=== PATIENT | male | born 1955 | race Caucasian/White ===

== ENCOUNTER 2024-01-08 01:04 | Emergency (ER) | payer MEDICARE, OTHER, SELFPAY ==
[2024-01-08 01:12] VITALS: BP 139/71
[2024-01-08 01:48] VITALS: BP 149/70
[2024-01-08 01:55] VITALS: BMI 31.6
[2024-01-08 02:00] VITALS: BP 147/76
--- NOTE | 2024-01-08 02:20 | ED.GENMED ---
History of Present Illness
<DAMIAN Neumann - Last Filed: 01/08/24 02:56>
General
Chief Complaint: Post Operative Problem(s)
Source: patient and spouse
Exam Limitations: none
Time Seen by Provider: 01/08/24 01:49
Travel History
Have you had any contact with someone who has COVID-19?: No
Do you have any symptoms of coronavirus? Fever > 100 degrees, chills, cough, shortness of breath, sore throat, loss of taste or smell, muscle aches, or headache?: No
History of Present Illness
History of Present Illness:
This is a 68 YO M with a PMH of diabetes, myasthenia gravis (02/14), three herniated discs (07/17), right nephrectomy (06/18), five treatments of radiation d/t renal cell carcinoma, s/p b/l inguinal hernia repairs with mesh x 01/06/24 that presents to
the ED with complaints of abdominal pain since Thursday after surgery and nausea/dry heaving x 1 day. Pt states his surgery was at [facility]. He went back today on 01/06 with his , but did not want to wait in the ED any longer. Pt and
state his stomach looks more distended tonight compared to yesterday. Pt also complains of associated constipation since Thursday. He is taking narcotics. He tried Senna without relief. Last BM was Thursday. Current medications include
Metformin, Metoprolol, HCTZ, Losartan, a statin, Tamsulosin, Nexium, Pepcid, and Zyrtec. Incisions look clean and intact without discharge. Pt's states he is tolerating food after eating.
(+) Social drinking, (-) Smoking and drug use
Denies CP, SOB, and diarrhea.
Past History
<DAMIAN Neumann - Last Filed: 01/08/24 02:56>
Past History
ED Past Medical History: GERD, HTN, Hypercholesterolemia, NIDDM (blood sugars on prednisone have been 104 AC to 140 after eating), Other (R hip pain past few years w xrays, injections, using cane intermittently, sees Rheumatologis for this) and
Other (Diverticulitis, C. differential colitis 8 years ago)
ED Past Surgical History: Orthopedic (Lumbar laminectomy 1987)
Social History
Tobacco: Non-smoker
Alcohol: Occasional
Personal:
Living: with family
Employment: Retired
Family History
Family History: Diabetes and Other (father with colon cancer and prostate cancer)
Phy Exam
<DAMIAN Neumann - Last Filed: 01/08/24 02:56>
Physical Exam
Physical Exam:
Diffuse abdominal pain in all four quadrants with normal bowel sounds
Normal S1 and S2
Dry mucous membranes
Breath sounds are clear and equal B/L
General Physical Exam
General Presentation: well appearing
General age: appears stated age
General Skin: dry
General Habitus: normal
General Mental: alert
General Hydration: dry mucous membranes
Cardiovascular Exam
Cardiovascular Exam: regular rate/rhythm
Pulmonary Exam
Pulmonary Exam: lungs clear and no respiratory distress
Gastrointestinal Exam
Gastrointestinal Exam: normal bowel sounds, soft and distended
Abdominal Scars: inguinal and katey-umbilical
Auscultation of Abdomen: normal
Neurological Exam
Neurological Exam: alert, oriented x3 and speech normal
Course
<DAMIAN Neumann - Last Filed: 01/08/24 02:56>
Orders/Labs/Results
Orders:
Orders
01/08/24 01:54
IV Insert/Care/Rem.- Treatment PRN
01/08/24 02:03
Complete Blood Count/With Diff Urgent
Comprehensive Metabolic Panel Urgent
Lipase Urgent
01/08/24 03:05
CT Abd/pelvis W Iv Cont Urgent
Comment:
Reason For Exam: abd pain,recent inguinal hernia repair,constipated
0.9% Sodium Chloride 1000 ml [Nss] 1,000 ml IV BOLUS
Abnormal Lab Results
01/08/24
02:03
RBC 3.75 L 10^6/uL
(4.70-6.10)
Hgb 10.4 L g/dL
(13.0-18.0)
Hct 30.7 L %
(39.0-52.0)
RDW 14.7 H %
(11.5-14.5)
Absolute Neuts (auto) 9.1 H 10^3/uL
(1.4-6.5)
Absolute Lymphs (auto) 0.7 L 10^3/uL
(1.2-3.4)
Absolute Monos (auto) 0.8 H 10^3/uL
(0.1-0.6)
Neutrophils % 84.2 H %
(42.2-75.2)
Lymphocytes % 6.0 L %
(20.5-51.1)
Sodium 128 L mmol/L
(135-145)
Chloride 92 L mmol/L
(98-107)
Glucose 125 H mg/dl
(70-99)
01/08/24 02:03
01/08/24 02:03
Vital Signs
Initial and Last Documented VS:
Initial Vital Signs
Temp Pulse Resp BP Pulse Ox
98.0 F 60 16 139/71 96
01/08/24 01:12 01/08/24 01:12 01/08/24 01:01/08/24 01:12 01/08/24 01:12
Last Documented Vital Signs
Temp Pulse Resp BP Pulse Ox
98.0 F 60 16 153/77 95
01/08/24 01:12 01/08/24 01:12 01/08/24 01:12 01/08/24 03:00 01/08/24 03:43
<Rajiv Callahan, DO - Last Filed: 01/08/24 05:12>
Orders/Labs/Results
Orders:
Orders
01/08/24 01:54
IV Insert/Care/Rem.- Treatment PRN
01/08/24 02:03
Complete Blood Count/With Diff Urgent
Comprehensive Metabolic Panel Urgent
Lipase Urgent
01/08/24 03:05
CT Abd/pelvis W Iv Cont Urgent
Comment:
Reason For Exam: abd pain,recent inguinal hernia repair,constipated
0.9% Sodium Chloride 1000 ml [Nss] 1,000 ml IV BOLUS
Abnormal Lab Results
01/08/24
02:03
RBC 3.75 L 10^6/uL
(4.70-6.10)
Hgb 10.4 L g/dL
(13.0-18.0)
Hct 30.7 L %
(39.0-52.0)
RDW 14.7 H %
(11.5-14.5)
Absolute Neuts (auto) 9.1 H 10^3/uL
(1.4-6.5)
Absolute Lymphs (auto) 0.7 L 10^3/uL
(1.2-3.4)
Absolute Monos (auto) 0.8 H 10^3/uL
(0.1-0.6)
Neutrophils % 84.2 H %
(42.2-75.2)
Lymphocytes % 6.0 L %
(20.5-51.1)
Sodium 128 L mmol/L
(135-145)
Chloride 92 L mmol/L
(98-107)
Glucose 125 H mg/dl
(70-99)
01/08/24 02:03
01/08/24 02:03
Vital Signs
Initial and Last Documented VS:
Initial Vital Signs
Temp Pulse Resp BP Pulse Ox
98.0 F 60 16 139/71 96
01/08/24 01:12 01/08/24 01:12 01/08/24 01:12 01/08/24 01:12 01/08/24 01:12
Last Documented Vital Signs
Temp Pulse Resp BP Pulse Ox
98.0 F 60 16 153/77 95
01/08/24 01:12 01/08/24 01:12 01/08/24 01:12 01/08/24 03:00 01/08/24 03:43
<DAMIAN Neumann - Last Filed: 01/08/24 02:56>
MDM/Problems Addressed
Differential Diagnosis Includes:
SBO, Post-operative, Ileus, LBO, Volvulus,
MDM/Problems Addressed:
Abdominal pain and nausea
Chronic conditions affecting care: DM, HTN and Other (Renal cell carcinoma)
<DAMIAN Neumann - Last Filed: 01/08/24 02:56>
*Critical Care Note
Total Time (30-74mins, 75-104mins- exclusive of procedures): Not Applicable
<Rajiv Callahan DO - Last Filed: 01/08/24 05:12>
Update Note
Update Note:
CT negative for significant pathology. We discussed postsurgical seroma and constipation. Patient feeling better after IV fluids and feels comfortable going home. Discussed laxatives
ED Attending Note
<DAMIAN Neumann - Last Filed: 01/08/24 02:56>
-
Portions of this chart may have been created with voice recognition software.� Occasional wrong word or��sound alike� substitutions may have occurred due to the inherent limitations of voice recognition software.
<Rajiv Callahan DO - Last Filed: 01/08/24 05:12>
ED Attending Note
Patient seen and examined by attending physician: Yes
I performed the substantive portion of visit, reviewed & personally made and approve the management plan that is documented in note by myself or ANOOP.: Yes
ED Attending Note:
I have seen and evaluated the patient with a [id number]-[id number] encounter. I have spoken to the advance practicer provider and involved in the medical history, the physical exam, medical decision making.
Evaluation and management service: agree unless noted differently below.
Results interpretation: agree unless noted differently below.
Focused HPI: 68-year-old male presenting with abdominal discomfort, nausea, dry heaving and constipation. Patient had recent inguinal hernia repair yesterday. Due to his symptoms, he went to [facility] where the surgery was performed. Due
to the emergency department wait time, he left and came here. Patient is urinating and passing gas
Physical exam: Sitting in bed comfortably. Abdomen soft and nontender. Inguinal incisions are clean and intact
Medical Decision Making: We discussed likely postoperative ileus or constipation due to narcotics. Patient is clinically dehydrated. Will give IV fluids obtain CT
Discharge Plan
Departure
Patient Disposition: Home (Routine Discharge)
Date of Disposition: 01/08/24
Time of Disposition: 05:11
Patient with high blood pressure during this ER visit?: Yes
Discharge Problem:
Post-operative pain
Instructions: Postoperative Pain (DC), BLOOD PRESSURE
Prescriptions:
No Action
cetirizine 10 MG tablet
10 mg PO DAILY
hydrochlorothiazide 50 MG tablet
50 mg PO DAILY
metoprolol tartrate 25 MG tablet
25 mg PO DAILY
Patient Comments:
Patient states to nurse, 'I take a half a pill a day.'
Multivitamin
1 tab PO DAILY
vnkktilzhq-eoeqozrurogr-phojxy 1 CAP capsule
1 cap PO DAILY
pioglitazone-metformin [Actoplus MET] 1 TAB tablet
1 tab PO BID
atorvastatin 40 MG tablet
40 mg PO DAILY
Allopurinol
100 mg PO DAILY
Ambien:
10 mg PO HS PRN (Reason: sleep)
Celebrex:
200 mg PO DAILY PRN (Reason: pain)
Magnesium
125 mg PO DAILY
Melatonin
5 mg PO HS
Prevacid:
15 mg PO BID
Vitamin D3:
2,000 unit PO DAILY
Vitamin E :
450 mg PO DAILY
prednisone 20 mg tablet
40 mg PO DAILY Qty: 8 0RF
Referrals:
Boyd Sage MD [Family Provider] -
Activity Restrictions/Additional Instructions:
Please return for any worsening symptoms.
You may return at any time if you have further concerns.
Please follow up with your surgeon at the first available appointment, preferably this week.
Drink plenty of water intake laxatives for the next few days.
Thank you for choosing [facility].
Interventions
Interventions:
*Risk Screen - Suicide Last Done: 01/08/24 01:12
*General Assessment Last Done: 01/08/24 02:28
*Neglect/Abuse Screening Last Done: 01/08/24 01:17
ED- Fall Risk Assessment Last Done: 01/08/24 02:28
*ED COVID-19 Vaccine History Last Done: 01/08/24 01:12
ED-Skin Assessment Last Done: 01/08/24 02:25
Discharge Date and Time
Print Language: ALBANIAN
[2024-01-08 02:35] LABS: % Basophils 0.3 % (0-2); % Eosinophils 1.8 % (0-6); % Immature Granulocytes 0.4 % (0-0.5); % Monocytes 7.3 % (1.7-9.3); % Neutrophils 84.2 % (42.2-75.2); Absolute Eosinophils 0.2 10^3/uL (0-0.7); Absolute Lymphocytes 0.7 10^3/uL (1.2-3.4); Absolute Monocytes 0.8 10^3/uL (0.1-0.6); Absolute Neutrophils 9.1 10^3/uL (1.4-6.5); Hematocrit 30.7 % (39.0-52.0); Hemoglobin 10.4 g/dL (13.0-18.0); Mean Corp Hgb Conc. 33.9 g/dL (33.0-37.0); Mean Corpuscular Hgb 27.7 pg (27.0-31.0); Mean Corpuscular Volume 81.9 fL (80.0-94.0); Mean Platelet Volume 9.1 fL (7.4-10.4); Nucleated Red Blood Cells % 0 % (-); Platelet Count 181 10^3/uL (130-400); Red Blood Cell Count 3.75 10^6/uL (4.70-6.10); Red Cell Dist. Width 14.7 % (11.5-14.5); White Blood Cell Count 10.8 10^3/uL (4.8-10.8)
[2024-01-08 02:58] LABS: ALT (SGPT) 23 U/L (0-50); AST (SGOT) 33 U/L (17-59); Alkaline Phosphatase 81 U/L (38-126); Blood Urea Nitrogen 18 mg/dl (9-20); Calcium 9.3 mg/dl (8.4-10.2); Carbon Dioxide 27 mmol/L (22-30); Chloride 92 mmol/L (98-107); Estimated Creatinine Clearance 69 ml/min; Glucose 125 mg/dl (70-99); Lipase 53 U/L (23-300); Potassium 4.3 mmol/L (3.5-5.1); Sodium 128 mmol/L (135-145); Total Bilirubin 0.7 mg/dl (0.2-1.3); Total Protein 6.6 g/dl (6.3-8.2); eGFR > 60.00
[2024-01-08 03:00] VITALS: BP 153/77
[2024-01-08] MEDS: NSS 1000 IV (03:39)
[2024-01-08 04:00] VITALS: BP 147/76
== END 2024-01-08 05:46 | disposition home or self-care (01) ==
LOC: EMR 01:04
PROVIDERS: EMERGENCY PHYSICIAN Student in an Organized Health Care Education/Training Program; FAMILY PHYSICIAN Family Medicine
DX: G89.18 Other acute postprocedural pain (principal); R10.9 Unspecified abdominal pain; I10 Essential (primary) hypertension; E11.9 Type 2 diabetes mellitus without complications
CPT/HCPCS: 99285; 96360; 74177; 80053; 83690; 85025; Q9967

== ENCOUNTER → 2024-03-21 06:48 | Outpatient (REF) | payer MEDICARE, OTHER, SELFPAY ==
[2024-03-21 09:11] LABS: % Basophils 0.7 % (0-2); % Eosinophils 4.6 % (0-6); % Immature Granulocytes 0.3 % (0-0.5); % Lymphocytes 18.8 % (20.5-51.1); % Monocytes 12.7 % (1.7-9.3); % Neutrophils 62.9 % (42.2-75.2); Absolute Eosinophils 0.3 10^3/uL (0-0.7); Absolute Lymphocytes 1.1 10^3/uL (1.2-3.4); Absolute Monocytes 0.8 10^3/uL (0.1-0.6); Absolute Neutrophils 3.8 10^3/uL (1.4-6.5); Hematocrit 33.2 % (39.0-52.0); Mean Corp Hgb Conc. 33.1 g/dL (33.0-37.0); Mean Corpuscular Hgb 27.3 pg (27.0-31.0); Mean Corpuscular Volume 82.4 fL (80.0-94.0); Mean Platelet Volume 8.6 fL (7.4-10.4); Nucleated Red Blood Cells % 0 % (-); Platelet Count 210 10^3/uL (130-400); Red Blood Cell Count 4.03 10^6/uL (4.70-6.10); Red Cell Dist. Width 14.7 % (11.5-14.5); White Blood Cell Count 6.1 10^3/uL (4.8-10.8)
[2024-03-21 10:08] LABS: ALT (SGPT) 27 U/L (0-50); AST (SGOT) 29 U/L (17-59); Albumin 4.2 g/dl (3.5-5.0); Alkaline Phosphatase 88 U/L (38-126); Blood Urea Nitrogen 18 mg/dl (9-20); Calcium 9.7 mg/dl (8.4-10.2); Carbon Dioxide 29 mmol/L (22-30); Chloride 92 mmol/L (98-107); Glucose 88 mg/dl (70-99); HDL Cholesterol 47 mg/dl; LDL Cholesterol, Calculated 84 mg/dl; Potassium 4.4 mmol/L (3.5-5.1); Sodium 134 mmol/L (135-145); Total Bilirubin 0.5 mg/dl (0.2-1.3); Total Cholesterol 151 mg/dl (50-199); Total Protein 6.8 g/dl (6.3-8.2); Triglyceride 102 mg/dl (10-149); Very Low Density Lipoprotein 20 mg/dl (0-30); eGFR > 60.00
[2024-03-21 10:27] LABS: Glycohemoglobin (HgbA1c) 6.1 % (4.0-5.6)
[2024-03-21 10:38] LABS: Microalbumin, Random Urine <0.6 mg/dl (0.6-1.7)
[2024-03-21 11:46] LABS: PSA, Total - Screen 2.54 ng/ml (0.0-4.0)
== END ==
LOC: REG 06:48
PROVIDERS: ATTENDING PHYSICIAN Family Medicine
DX: Z12.5 Encounter for screening for malignant neoplasm of prostate (principal); C64.1 Malignant neoplasm of right kidney, except renal pelvis; E78.2 Mixed hyperlipidemia; E11.69 Type 2 diabetes mellitus with other specified complication
CPT/HCPCS: 36415; 80053; 80061; 82043; 82570; 83036; 85025; G0103

== ENCOUNTER 2024-05-13 10:09 | Emergency (ER) | payer MEDICARE, OTHER, SELFPAY ==
[2024-05-13 10:32] VITALS: BP 132/85
[2024-05-13 11:08] VITALS: BP 143/89; BMI 26.5
[2024-05-13 11:49] VITALS: BP 137/99
[2024-05-13 12:00] VITALS: BP 146/84
[2024-05-13] MEDS: REGLAN 10 MG IV (12:02)
[2024-05-13] MEDS: NSS 500 IV (12:02)
[2024-05-13 12:17] LABS: % Basophils 0.9 % (0-2); % Eosinophils 8.3 % (0-6); % Immature Granulocytes 0.2 % (0-0.5); % Lymphocytes 28.4 % (20.5-51.1); % Monocytes 9.2 % (1.7-9.3); Absolute Eosinophils 0.4 10^3/uL (0-0.7); Absolute Lymphocytes 1.3 10^3/uL (1.2-3.4); Absolute Monocytes 0.4 10^3/uL (0.1-0.6); Absolute Neutrophils 2.5 10^3/uL (1.4-6.5); Hematocrit 31.9 % (39.0-52.0); Hemoglobin 10.6 g/dL (13.0-18.0); Mean Corp Hgb Conc. 33.2 g/dL (33.0-37.0); Mean Corpuscular Hgb 26.6 pg (27.0-31.0); Mean Corpuscular Volume 80.2 fL (80.0-94.0); Mean Platelet Volume 8.3 fL (7.4-10.4); Nucleated Red Blood Cells % 0 % (-); Platelet Count 143 10^3/uL (130-400); Red Blood Cell Count 3.98 10^6/uL (4.70-6.10); Red Cell Dist. Width 14.9 % (11.5-14.5); White Blood Cell Count 4.7 10^3/uL (4.8-10.8)
[2024-05-13 12:37] LABS: ALT (SGPT) 55 U/L (0-50); AST (SGOT) 51 U/L (17-59); Albumin 3.5 g/dl (3.5-5.0); Alkaline Phosphatase 88 U/L (38-126); Blood Urea Nitrogen 15 mg/dl (9-20); Carbon Dioxide 28 mmol/L (22-30); Chloride 95 mmol/L (98-107); Estimated Creatinine Clearance 60 ml/min; Glucose 109 mg/dl (70-99); Potassium 4.4 mmol/L (3.5-5.1); Sodium 132 mmol/L (135-145); Total Bilirubin 0.2 mg/dl (0.2-1.3); Total Protein 5.9 g/dl (6.3-8.2); eGFR > 60.00
[2024-05-13 12:55] VITALS: BP 146/84
[2024-05-13 13:54] LABS: Urine Albumin Negative (Neg - Trace); Urine Bilirubin Negative (Negative); Urine Character Clear (Clear); Urine Color Yellow; Urine Glucose Negative (Negative); Urine Ketone Negative (Negative); Urine Leukocyte Negative (Negative); Urine Nitrite Negative (Negative); Urine Occult Blood Negative (Negative); Urine Urobilinogen Negative (Neg - 1+); Urine pH 6.5 (5.0-9.0)
--- NOTE | 2024-05-13 14:17 | ED.GENMED ---
History of Present Illness
General
Chief Complaint: Blood Pressure Problem
Source: patient and spouse
Exam Limitations: none
Time Seen by Provider: 05/13/24 11:01
Nursing documentation reviewed up to this point in time: agreed with
History of Present Illness
History of Present Illness:
68-year-old male past medical history of hypertension, diabetes myasthenia gravis, kidney cancer status post right kidney removal presenting to the emergency department today with concerns of elevated blood pressure and intermittent headache over
the past month. Had a recent MRI a few weeks referencing the patient's ongoing headaches ago that did not show any emergent findings. Denies numbness weakness chest pain shortness of breath.
Past History
Past History
ED Past Medical History: GERD, HTN, Hypercholesterolemia, NIDDM (blood sugars on prednisone have been 104 AC to 140 after eating), Other (R hip pain past few years w xrays, injections, using cane intermittently, sees Rheumatologis for this) and
Other (Diverticulitis, C. differential colitis 8 years ago)
ED Past Surgical History: Orthopedic (Lumbar laminectomy 1987)
Social History
Tobacco: Non-smoker
Alcohol: Occasional
Personal:
Living: with family
Employment: Retired
Family History
Family History: Diabetes and Other (father with colon cancer and prostate cancer)
Review of Systems
Review of Systems
Allergies reviewed?: Yes
All Other Systems: ROS reviewed and negative except as documented in HPI and ROS
Phy Exam
Physical Exam
Physical Exam:
GENERAL: Alert , in no apparent distress
EYE: pupils equal and reactive
NECK: Supple, no significant adenopathy.
ENT: o/p clr, mmm.
CARDIAC: Regular rate and rhythm .
LUNGS: Clear breath sounds bilaterally, no acute respiratory distress, no wheezes/rales/rhonchi
ABDOMEN: Soft, without focal tenderness, no r/g, no cvat
NEUROLOGICAL: Alert and oriented, no focal neuro deficits
SKIN: Warm and dry, skin intact.
MUSCULOSKELETAL: No edema, well perfused.
PSYCH: Normal and appropriate interaction.
Course
Orders/Labs/Results
Orders:
Orders
05/13/24 11:51
0.9% Sodium Chloride 500 ml [Nss] 500 ml IV BOLUS
Metoclopramide [Reglan] 10 mg IV NOW STA
05/13/24 12:02
CBC/With Diff [Complete Blood Count/With Diff] Urgent
CMP [Comprehensive Metabolic Panel] Urgent
05/13/24 13:48
Urinalysis Reflex To Culture Urgent
Date Specimen was Collected: 05/13/24
Time Specimen was Collected: 11:59
Abnormal Lab Results
05/13/24
12:02
WBC 4.7 L 10^3/uL
(4.8-10.8)
RBC 3.98 L 10^6/uL
(4.70-6.10)
Hgb 10.6 L g/dL
(13.0-18.0)
Hct 31.9 L %
(39.0-52.0)
MCH 26.6 L pg
(27.0-31.0)
RDW 14.9 H %
(11.5-14.5)
Eosinophils % 8.3 H %
(0-6)
Sodium 132 L mmol/L
(135-145)
Chloride 95 L mmol/L
(98-107)
Glucose 109 H mg/dl
(70-99)
ALT 55 H U/L
(0-50)
Total Protein 5.9 L g/dl
(6.3-8.2)
05/13/24 12:02
05/13/24 12:02
Vital Signs
Initial and Last Documented VS:
Initial Vital Signs
Temp Pulse Resp BP Pulse Ox
98.0 F 63 18 132/85 96
05/13/24 10:32 05/13/24 10:32 05/13/24 10:32 05/13/24 10:32 05/13/24 10:32
Last Documented Vital Signs
Temp Pulse Resp BP Pulse Ox
98.5 F 56 20 146/84 98
05/13/24 11:08 05/13/24 12:55 05/13/24 12:55 05/13/24 12:55 05/13/24 12:55
MDM/Problems Addressed
MDM/Problems Addressed:
The patient is a 68-year-old male presenting to the emergency department today with concerns of intermittently elevated blood pressure over the past few weeks also has had intermittent headache. Blood pressure in the 160s over 110s earlier today.
Upon arrival vital signs are normal blood pressures in the 130s over 80s labs obtained without acute abnormalities. Patient in no distress throughout the ER stay sodium slightly low, he is following up for this and does get closely monitor for
hyponatremia. Otherwise stable for discharge at this time return precautions given.
*Critical Care Note
Total Time (30-74mins, 75-104mins- exclusive of procedures): Not Applicable
ED Attending Note
-
Portions of this chart may have been created with voice recognition software.� Occasional wrong word or��sound alike� substitutions may have occurred due to the inherent limitations of voice recognition software.
Discharge Plan
Departure
Patient Disposition: Home (Routine Discharge)
Date of Disposition: 05/13/24
Time of Disposition: 14:19
Patient with high blood pressure during this ER visit?: Yes
Condition: Good
Covid-19: Not Applicable
Discharge Problem:
Headache, Hyponatremia
Instructions: High Blood Pressure (DC)
Prescriptions:
No Action
cetirizine 10 MG tablet
10 mg PO DAILY
hydrochlorothiazide 50 MG tablet
50 mg PO DAILY
metoprolol tartrate 25 MG tablet
25 mg PO DAILY
Patient Comments:
Patient states to nurse, 'I take a half a pill a day.'
Multivitamin
1 tab PO DAILY
hfhohqhfqp-yzipsmtuccpu-uexxky 1 CAP capsule
1 cap PO DAILY
pioglitazone-metformin [Actoplus MET] 1 TAB tablet
1 tab PO BID
atorvastatin 40 MG tablet
40 mg PO DAILY
Allopurinol
100 mg PO DAILY
Ambien:
10 mg PO HS PRN (Reason: sleep)
Celebrex:
200 mg PO DAILY PRN (Reason: pain)
Magnesium
125 mg PO DAILY
Melatonin
5 mg PO HS
Prevacid:
15 mg PO BID
Vitamin D3:
2,000 unit PO DAILY
Vitamin E :
450 mg PO DAILY
prednisone 20 mg tablet
40 mg PO DAILY Qty: 8 0RF
Referrals:
Boyd Sage MD [Family Provider] -
Activity Restrictions/Additional Instructions:
You came to the emergency department today with concerns of ongoing headache intermittent high blood pressure. Here you had a reassuring assessment. Your sodium was slightly low but not critically low. Please follow closely as an outpatient.
Return to the emergency department for any worsening, new or concerning symptoms.
Interventions
Interventions:
*Risk Screen - Suicide Last Done: 05/13/24 11:08
*General Assessment Last Done: 05/13/24 11:08
*Neglect/Abuse Screening Last Done: 05/13/24 11:08
ED- Fall Risk Assessment Last Done: 05/13/24 11:08
*ED COVID-19 Vaccine History Last Done: 05/13/24 10:35
ED- Cardiac Assessment Last Done: 05/13/24 11:08
ED- Neurological Assessment Last Done: 05/13/24 11:08
ED- Pulmonary Assessment Last Done: 05/13/24 11:08
Discharge Date and Time
Print Language: BRAZILIAN
[2024-05-13 14:27] VITALS: BP 141/81
== END 2024-05-13 14:28 | disposition home or self-care (01) ==
LOC: EMR 10:09
PROVIDERS: Physician Assistant; EMERGENCY PHYSICIAN Emergency Medicine; FAMILY PHYSICIAN Family Medicine
DX: R51.9 Headache, unspecified (principal); E87.1 Hypo-osmolality and hyponatremia; I10 Essential (primary) hypertension; E11.9 Type 2 diabetes mellitus without complications; E78.00 Pure hypercholesterolemia, unspecified; Z85.528 Personal history of other malignant neoplasm of kidney; Z90.5 Acquired absence of kidney
CPT/HCPCS: 99284; 96374; 80053; 81003; 85025

== ENCOUNTER 2024-05-15 09:30 | Emergency (ER) | payer OTHER, MEDICARE, SELFPAY ==
[2024-05-15] VITALS (7 sets, daily range): BP systolic 136–166; BP diastolic 96–106; BMI 28.8
--- NOTE | 2024-05-15 10:35 | ED.GENMED ---
History of Present Illness
General
Chief Complaint: Blood Pressure Problem
Source: patient
Time Seen by Provider: 05/15/24 09:58
History of Present Illness
History of Present Illness:
68-year-old male presents to the emergency room complaining of elevated blood pressure. Patient has been experiencing elevations in his blood pressure over the past couple weeks. Patient was diagnosed with renal cell carcinoma which is metastatic.
He was started on a medication called cabozantinib. This medication has a known side effect of elevated blood pressure. Blood pressure medications have been adjusted. He is currently taking Coreg, hydrochlorothiazide, and losartan. Patient had
a headache this morning and take his blood pressure when he realized it was 160s over 110s. He was concerned that he might have a stroke prompting his call to his doctors who referred him to the emergency room. Currently the patient is
symptom-free. Patient has been experiencing shortness of breath with exertion which is been present for some time. He has not noted any peripheral edema. He denies chest pain.
Past History
Past History
ED Past Medical History: GERD, HTN, Hypercholesterolemia, NIDDM (blood sugars on prednisone have been 104 AC to 140 after eating), Other (R hip pain past few years w xrays, injections, using cane intermittently, sees Rheumatologis for this) and
Other (Diverticulitis, C. differential colitis 8 years ago)
ED Past Surgical History: Orthopedic (Lumbar laminectomy 1987)
Social History
Tobacco: Non-smoker
Alcohol: Occasional
Personal:
Living: with family
Employment: Retired
Family History
Family History: Diabetes and Other (father with colon cancer and prostate cancer)
Phy Exam
Physical Exam
Physical Exam:
General: Awake, Alert, Oriented X3. No acute distress.
Vitals: unremarkable
Head: Atraumatic
Eyes: Pupils equal, EOMI
Throat: Airway intact, no exudates
Neck: Trachea midline
Lungs: Clear and equal b/l
Heart: Regular rate, no murmurs
Abd: Soft, Nontender, No pulsatile mass
Neuro: Nonfocal
Skin: Warm, dry, no rash
Extremities: pulses equal b/l, no edema
Course
Orders/Labs/Results
Orders:
Orders
05/15/24 10:29
CR Chest - 2 Views Urgent
Comment:
Reason For Exam: sob
05/15/24 10:36
Basic Metabolic Panel Urgent
NT-proBNP Urgent
05/15/24 12:33
Amlodipine [Norvasc] 5 mg PO NOW STA
05/15/24 12:34
Amlodipine [Norvasc] 5 mg .ROUTE .STK-MED ONE
Abnormal Lab Results
05/15/24
10:36
Sodium 131 L mmol/L
(135-145)
Chloride 94 L mmol/L
(98-107)
Glucose 113 H mg/dl
(70-99)
05/15/24 10:36
Vital Signs
Initial and Last Documented VS:
Initial Vital Signs
Temp Pulse Resp BP Pulse Ox
97.6 F 67 18 151/97 97
05/15/24 09:36 05/15/24 09:36 05/15/24 09:36 05/15/24 09:36 05/15/24 09:36
Last Documented Vital Signs
Temp Pulse Resp BP Pulse Ox
97.6 F 65 24 166/105 97
05/15/24 09:36 05/15/24 12:45 05/15/24 12:45 05/15/24 12:45 05/15/24 12:45
MDM/Problems Addressed
Differential Diagnosis Includes:
Uncontrolled hypertension, worsening renal function, heart failure
MDM/Problems Addressed:
Very pleasant 68-year-old gentleman presents for continued uncontrolled high blood pressure. Patient was seen in the emergency room for similar symptoms. Somewhat frustrated that nothing was done at that time. Patient had a headache this morning
but has no symptoms now. Specifically he has no chest pain, headache, focal neurologic deficits. Labs show mild hyponatremia 131. Not unexpected given his use of hydrochlorothiazide. Otherwise his labs are unremarkable including a BN P. Chest
x-ray shows no acute abnormalities. Discussed the patient's presentation with his oncology team at the [facility]. His chemo medication is associated with hypertension. They agree with starting amlodipine. Also sent a message to the
patient's drop press hand, Dr. Norton. He will follow-up with patient as an outpatient.
*Radiology
Radiology exam reviewed: radiology read reviewed
*Pulse Oximetry
Patient hypoxic: no
*Critical Care Note
Total Time (30-74mins, 75-104mins- exclusive of procedures): Not Applicable
Patient Management
Social determinants of health affecting care: Strong social support
ED Attending Note
-
Portions of this chart may have been created with voice recognition software.� Occasional wrong word or��sound alike� substitutions may have occurred due to the inherent limitations of voice recognition software.
Discharge Plan
Departure
Patient Disposition: Home (Routine Discharge)
Date of Disposition: 05/15/24
Time of Disposition: 12:26
Patient with high blood pressure during this ER visit?: No
Condition: Good
Discharge Problem:
Uncontrolled hypertension
Prescriptions:
New
amlodipine [Norvasc] 5 mg tablet
5 mg PO DAILY Qty: 14 0RF
No Action
cetirizine 10 MG tablet
10 mg PO DAILY
hydrochlorothiazide 50 MG tablet
50 mg PO DAILY
metoprolol tartrate 25 MG tablet
25 mg PO DAILY
Patient Comments:
Patient states to nurse, 'I take a half a pill a day.'
Multivitamin
1 tab PO DAILY
zqsdatymee-upomvsqihsgy-epbzuw 1 CAP capsule
1 cap PO DAILY
pioglitazone-metformin [Actoplus MET] 1 TAB tablet
1 tab PO BID
atorvastatin 40 MG tablet
40 mg PO DAILY
Allopurinol
100 mg PO DAILY
Ambien:
10 mg PO HS PRN (Reason: sleep)
Celebrex:
200 mg PO DAILY PRN (Reason: pain)
Magnesium
125 mg PO DAILY
Melatonin
5 mg PO HS
Prevacid:
15 mg PO BID
Vitamin D3:
2,000 unit PO DAILY
Vitamin E :
450 mg PO DAILY
prednisone 20 mg tablet
40 mg PO DAILY Qty: 8 0RF
Referrals:
Samy Norton DO [Active] -
Boyd Sage MD [Family Provider] -
Interventions
Interventions:
*Risk Screen - Suicide Last Done: 05/15/24 10:25
*General Assessment Last Done: 05/15/24 10:25
*Neglect/Abuse Screening Last Done: 05/15/24 10:25
ED- Fall Risk Assessment Last Done: 05/15/24 10:26
*ED COVID-19 Vaccine History Last Done: 05/15/24 10:25
*Nursing Disposition Last Done: 05/15/24 12:45
ED- Cardiac Assessment Last Done: 05/15/24 11:19
ED- Neurological Assessment Last Done: 05/15/24 11:19
ED- Pulmonary Assessment Last Done: 05/15/24 11:19
Discharge Date and Time
Discharge Date/Time: 05/15/24 12:50
Print Language: ITALIAN
[2024-05-15 10:58] LABS: Blood Urea Nitrogen 15 mg/dl (9-20); Calcium 9.4 mg/dl (8.4-10.2); Carbon Dioxide 27 mmol/L (22-30); Chloride 94 mmol/L (98-107); Estimated Creatinine Clearance 65 ml/min; Glucose 113 mg/dl (70-99); Sodium 131 mmol/L (135-145); eGFR > 60.00
[2024-05-15 11:06] LABS: NT-proBNP 438 pg/ml
--- NOTE | 2024-05-15 12:27 | EDRN ---
Dr. Bustamante in to see pt at this time.
.
[2024-05-15] MEDS: NORVASC 5 MG PO (12:39)
== END 2024-05-15 12:50 | disposition home or self-care (01) ==
LOC: EMR 09:30
PROVIDERS: EMERGENCY PHYSICIAN Emergency Medicine; FAMILY PHYSICIAN Family Medicine
DX: I10 Essential (primary) hypertension (principal); C64.9 Malignant neoplasm of unspecified kidney, except renal pelvis; C79.9 Secondary malignant neoplasm of unspecified site; E11.9 Type 2 diabetes mellitus without complications; E78.00 Pure hypercholesterolemia, unspecified; E87.1 Hypo-osmolality and hyponatremia; K21.9 Gastro-esophageal reflux disease without esophagitis; Z79.899 Other long term (current) drug therapy
CPT/HCPCS: 99284; 71046; 80048; 83880

== ENCOUNTER → 2024-06-22 10:44 | Outpatient (REF) | payer MEDICARE, OTHER, SELFPAY ==
[2024-06-22 13:15] LABS: Urine Sodium 111 mmol/L (30-90)
[2024-06-22 13:30] LABS: Osmolality Serum 281 mOsm/kg (275-300)
[2024-06-22 13:40] LABS: Blood Urea Nitrogen 16 mg/dl (9-20); Calcium 9.2 mg/dl (8.4-10.2); Carbon Dioxide 29 mmol/L (22-30); Chloride 94 mmol/L (98-107); Glucose 89 mg/dl (70-99); Potassium 4.9 mmol/L (3.5-5.1); Sodium 131 mmol/L (135-145); eGFR > 60.00
[2024-06-22 16:58] LABS: Osmolality Urine 515 mOsm/kg (300-900)
== END ==
LOC: REG 10:44
PROVIDERS: ATTENDING PHYSICIAN Hospitalist
DX: E87.1 Hypo-osmolality and hyponatremia (principal)
CPT/HCPCS: 36415; 80048; 83930; 83935; 84300

== ENCOUNTER → 2024-06-29 09:17 | Outpatient (REF) | payer MEDICARE, OTHER, SELFPAY ==
[2024-06-29 10:27] LABS: Blood Urea Nitrogen 19 mg/dl (9-20); Calcium 9.1 mg/dl (8.4-10.2); Carbon Dioxide 28 mmol/L (22-30); Chloride 93 mmol/L (98-107); Glucose 114 mg/dl (70-99); Sodium 130 mmol/L (135-145); eGFR > 60.00
== END ==
LOC: REG 09:17
PROVIDERS: ATTENDING PHYSICIAN Hospitalist
DX: E87.1 Hypo-osmolality and hyponatremia (principal)
CPT/HCPCS: 36415; 80048

== ENCOUNTER 2024-10-30 22:01 | Inpatient (IN) | payer MEDICARE, OTHER, SELFPAY ==
[2024-10-30] VITALS (18 sets, daily range): BP systolic 140–191; BP diastolic 86–104; BMI 29.6; BMI 29.1
[2024-10-30 14:01] LABS: % Basophils 0.2 % (0-2); % Eosinophils 0.2 % (0-6); % Immature Granulocytes 0.3 % (0-0.5); % Monocytes 4.4 % (1.7-9.3); % Neutrophils 90.9 % (42.2-75.2); Absolute Lymphocytes 0.4 10^3/uL (1.2-3.4); Absolute Monocytes 0.4 10^3/uL (0.1-0.6); Absolute Neutrophils 8.7 10^3/uL (1.4-6.5); Hematocrit 34.8 % (39.0-52.0); Hemoglobin 11.6 g/dL (13.0-18.0); Mean Corp Hgb Conc. 33.3 g/dL (33.0-37.0); Mean Corpuscular Hgb 30.9 pg (27.0-31.0); Mean Corpuscular Volume 92.6 fL (80.0-94.0); Nucleated Red Blood Cells % 0 % (-); Red Blood Cell Count 3.76 10^6/uL (4.70-6.10); Red Cell Dist. Width 15.4 % (11.5-14.5); White Blood Cell Count 9.6 10^3/uL (4.8-10.8)
[2024-10-30 14:28] LABS: ALT (SGPT) 287 U/L (0-50); AST (SGOT) 142 U/L (17-59); Albumin 3.4 g/dl (3.5-5.0); Alkaline Phosphatase 159 U/L (38-126); Blood Urea Nitrogen 16 mg/dl (9-20); Calcium 8.5 mg/dl (8.4-10.2); Carbon Dioxide 26 mmol/L (22-30); Chloride 96 mmol/L (98-107); Estimated Creatinine Clearance 59 ml/min; Glucose 119 mg/dl (70-99); Lipase 30 U/L (23-300); Potassium 4.2 mmol/L (3.5-5.1); Sodium 130 mmol/L (135-145); Total Bilirubin 1.7 mg/dl (0.2-1.3); Total Protein 6.1 g/dl (6.3-8.2); eGFR > 60.00
[2024-10-30 14:59] LABS: Mean Platelet Volume 8.3 fL (7.4-10.4); Platelet Count 96 10^3/uL (130-400)
--- NOTE | 2024-10-30 15:03 | ED.GENMED ---
History of Present Illness
<Kelli Abdalla PA-C - Last Filed: 10/31/24 00:34>
General
Chief Complaint: Abdominal Symptoms
Source: patient and spouse ( at bedside)
Exam Limitations: none
Time Seen by Provider: 10/30/24 14:38
Nursing documentation reviewed up to this point in time: agreed with
History of Present Illness
History of Present Illness:
Patient is a 69-year-old male with history hypertension, hyperlipidemia, myasthenia gravis, renal cancer status post left nephrectomy presenting to the emergency department with intractable nausea/vomiting and diarrhea. Patient states he started
with 'shaking chills 'on Thursday evening which was shortly followed by persistent nausea, vomiting, and nonbloody diarrhea. Patient has had very little to eat/drink over the past few days secondary to nausea. He denies any focal abdominal
tenderness. Patient denies any dysuria or hematuria although notes that his urine seemed very dark. Patient is are concerned that he may be dehydrated. No sick contacts.
Patient is taking Cabometyx for renal cell carcinoma and has been dealing with frequent diarrhea since starting this medication although states that over the past few days it has seemed 'worse '.
He is also currently being treated w/ pyridostigmine for myasthenia gravis which was apparently in remission until recently with some difficulty swallowing was started on medication.
Past History
<Kelli Abdalla PA-C - Last Filed: 10/31/24 00:34>
Past History
ED Past Medical History: GERD, HTN, Hypercholesterolemia, NIDDM (blood sugars on prednisone have been 104 AC to 140 after eating), Other (R hip pain past few years w xrays, injections, using cane intermittently, sees Rheumatologis for this) and
Other (Diverticulitis, C. differential colitis 8 years ago)
ED Past Surgical History: Orthopedic (Lumbar laminectomy 1987)
Social History
Tobacco: Non-smoker
Alcohol: Occasional
Personal:
Living: with family
Employment: Retired
Family History
Family History: Diabetes and Other (father with colon cancer and prostate cancer)
Review of Systems
<Kelli Abdalla PA-C - Last Filed: 10/31/24 00:34>
Review of Systems
Allergies reviewed?: Yes
All Other Systems: ROS reviewed and negative except as documented in HPI and ROS
Phy Exam
<Kelli Abdalla PA-C - Last Filed: 10/31/24 00:34>
Physical Exam
Physical Exam:
Vitals: Hypertensive on arrival, mildly improved on my assessment. Afebrile
General: Patient is generally weak appearing. Nontoxic
Skin: Warm and dry, no rashes or lesions
Head: Normocephalic, atraumatic
Eyes: Sclera nonicteric. EOMs intact. No nystagmus.
Throat: Protecting airway
Neck: Normal ROM, no cervical spine tenderness, no meningismus
Cardiac: Regular rate and rhythm, no murmurs.
Pulm: Mildly tachypneic. Normal respiratory effort, no wheezes, rales, rhonchi heard on exam. Not hypoxic.
Abdomen: Nondistended. Abdomen soft with very mild diffuse tenderness. No rebound tenderness or guarding. Negative Montejo sign. No focal tenderness McBurney's point.
Extremities: No evidence of cyanosis or edema. Palpable DP pulses bilaterally
Neuro: AAOx3. Grossly intact.
Psychiatric: Normal affect.
Course
<Kelli Abdalla PA-C - Last Filed: 10/31/24 00:34>
Orders/Labs/Results
Orders:
Orders
10/30/24 Breakfast
Clear Liquid
At Your Request: Limited Participation
10/30/24 13:45
CMP [Comprehensive Metabolic Panel] Urgent
Complete Blood Count/With Diff Urgent
Lipase Urgent
10/30/24 14:59
0.9% Sodium Chloride 1000 ml [Nss] 1,000 ml IV BOLUS
Acetaminophen [Tylenol] 650 mg PO NOW STA
Ondansetron Injectable [Zofran] 4 mg IV NOW STA
10/30/24 15:00
US Abdomen Complete/Upper Urgent
Comment:
Reason For Exam: N/V, LFT elevation
10/30/24 15:21
Urinalysis Reflex To Culture Urgent
Date Specimen was Collected: 10/30/24
Time Specimen was Collected: 15:20
Urine Microscopic Reflex Cult Urgent
10/30/24 16:15
Norovirus by PCR Urgent
FREDDIE Source: Feces/Stool
Specimen Description:
Date Specimen was Collected: 10/30/24
Time Specimen was Collected: 16:14
STOOL [C difficile Antigen & Toxins] Urgent
FREDDIE Source: Feces/Stool
Specimen Description:
Date Specimen was Collected: 10/30/24
Time Specimen was Collected: 16:14
Stool Culture Urgent
FREDDIE Source: Feces/Stool
Specimen Description:
Date Specimen was Collected: 10/30/24
Time Specimen was Collected: 16:14
10/30/24 17:33
CT Abd/pelvis W Iv Cont Urgent
Comment:
Reason For Exam: Fevers, abdominal pain, N/V
10/30/24 18:00
COVID-19 Antigen Urgent
Source: Nasal Swab
Lactic Acid Q4H
Comment: CANCEL 2nd LACTIC ACID IF 1st LACTIC ACID IS LESS THAN 2
Blood Culture Q30M
FREDDIE Source: Blood/Venous
Specimen Description:
Blood Culture Q30M
FREDDIE Source: Blood/Venous
Specimen Description:
Influenza A+B Rapid Molecular Urgent
FREDDIE Source: Nasal Swab
Specimen Description:
10/30/24 18:17
Electrocardiogram (*1) Urgent
Reason for Study: Shortness of Breath
EKG- Treatment ONCE
Piperacillin/Tazo 3.375 Gram [Zosyn] 3.375 gram in 50 ml IV NOW
10/30/24 18:29
Pft Nif [RESP] Urgent
10/30/24 18:44
CR Chest Portable - 1 View Urgent
Comment:
Reason For Exam: SOB
Reason Study Needs to be Portable: Patient Unstable
10/30/24 18:55
Pyridostigmine [Mestinon] 30 mg PO NOW STA
10/30/24 19:15
Oxygen Therapy [O2 Therapy] [RESP] Urgent
Nasal Cannula Liter Flow: 2 LPM
Titrate/Wean O2 to maintain O2 sat greater than (%): 93
Wean Oxygen to Pre Admission Baseline Therapy-if applicable: Yes
Contact provider if nasal cannula O2 requirement > 6 liters: Yes
10/30/24 20:47
Admit/Transfer Patient As Directed
Co-Sign Provider:
Level of Care: Inpatient admission
Assign to:: ICU
Physician / Group: Jarek
Diagnosis: Gastroenteritis / Diverticulitis, Myasthenia Gravis
Reason for Hospitalization: Gastroenteritis / Diverticulitis, Myasthenia Gravis
Expected length of stay greater than two midnights?: Yes
ELOS- Estimated Length of Stay in days: 4
I certify the patient meets the requirements for IP care: Yes
Prednisone [Deltasone] 10 mg PO NOW STA
PRN Pain Medication Management As Directed
May give lesser potent ordered pain med per pt: Yes
preference::
Protocol:: Medication orders for pain may be administered in a
manner that supports deferring to patient preference
when the pt is:
- Requesting an ordered lesser potent pain medication.
Least to most potent pain medications are defined
as: acetaminophen < NSAID < tramadol < opioids
(morphine, oxycodone, hydromorphone).
- Requesting a lesser dose of the same medication IF
ORDERED.
- Requesting a less intrusive route of administration
if both routes are prescribed by the provider (PO <
IV).
10/30/24 20:50
Code Status As Directed
Resuscitation Status: Full Code
10/30/24 22:03
0.9% Sodium Chloride 1000 ml [Nss] 1,000 ml IV 125 mls/hr
Acetaminophen [Tylenol] 650 mg PO Q4HPRN PRN
Dextrose 50%-Water [Dextrose 50% Syringe] 12.5 grams IV [id number] PRN
Enoxaparin Sodium [Lovenox] 80 mg SC NOW STA
Glucagon [GlucaGen] 1 mg IM PRN PRN
Ondansetron Injectable [Zofran] 4 mg IV Q6HPRN PRN
Pft Nif [RESP] Q3H
10/30/24 22:03
Echo 2D MMode Doppler [Echo 2D MMode Color/Doppler] Routine
Reason for Study: SOB
NEUROLOGY CONSULT Routine
Consulting Provider: Mona Larry
Was physician already notified: Yes
Reason for consult: Myasthenia
Activity As Directed
Activity Level: Ambulate
With Assistance
Bedside Glucose Monitoring As Directed
Frequency: AC&HS
Additional Instructions:: Change to q6h if pt on TPN, tube feeding or not eating
Bladder Scan As Directed
Follow Bladder Retention/Intermittent Cath Algorithm?: Yes
PRN if no void in __ hours: 6
Frequency: Per Retention Algorithm
If Bladder Scan Result >: 400
then:: Straight cath
EKG with chest pain [ECG as needed] As Directed
ECG as needed for:: Chest Pain
I/O [Intake/ Output] As Directed
Frequency: Per unit guidelines
Neurological Checks As Directed
Frequency: q4h
Straight Cath As Directed
Frequency: Per Retention Algorithm
Additional Instructions: straight cath as needed per acute urinary retention algorithm for 24 hrs
Additional Instructions: for bladder scan greater than 400 mL
Vital Signs As Directed
Frequency: Per unit guidelines
Weight As Directed
Frequency: Daily
Cpap [RESP] Routine
Patient to use own unit?: No
Set Pressure (cm H2O): 10
Oxygen Liter Flow: 2
Instructions: HS and PRN.
Titrate for comfort (pt does not know home settings).
Oxygen Therapy [O2 Therapy] [RESP] Routine
Titrate/Wean O2 to maintain O2 sat greater than (%): 94
Ot Eval And Treat Routine
PT Consult [Pt Eval And Treat] Routine
Activity Level: Ambulate
With Assistance
Speech Therapy Eval & Treat Routine
DX Deep Vein Thrombosis Video Routine
10/30/24 22:57
BNP [NT-proBNP] Urgent
TSH Reflex To Free T4 Routine
Troponin I Urgent
10/30/24 23:00
Pyridostigmine [Mestinon] 60 mg PO TID
10/31/24 00:00
Ampicillin/Sulbactam 3 G [Unasyn] 3 gm 0.9% Sodium Chloride 100 ml [Nss] 100 ml IV Q6
10/31/24 01:03
Pft Nif [RESP] Q3H
10/31/24 06:00
Basic Metabolic Panel IN AM
Complete Blood Count/No Diff IN AM
Glycohemoglobin (HgbA1c) IN AM
LFT [Klpsk-Lizq-Lhervzm] IN AM
Magnesium IN AM
Phosphorus IN AM
10/31/24 07:30
Insulin Aspart Corrective Low [Novolog Flexpen-Low Resistance] See Protocol SC AC
10/31/24 08:00
Allopurinol [Zyloprim] 100 mg PO DAILY
Amlodipine [Norvasc] 5 mg PO DAILY
Losartan [Cozaar] 100 mg PO DAILY
Pantoprazole [Protonix IV] 40 mg IV DAILY
Prednisone [Deltasone] 5 mg PO DAILY
Abnormal Lab Results
10/30/24 10/30/24
13:45 15:21
RBC 3.76 L 10^6/uL
(4.70-6.10)
Hgb 11.6 L g/dL
(13.0-18.0)
Hct 34.8 L %
(39.0-52.0)
RDW 15.4 H %
(11.5-14.5)
Plt Count 96 L 10^3/uL
(130-400)
Absolute Neuts (auto) 8.7 H 10^3/uL
(1.4-6.5)
Absolute Lymphs (auto) 0.4 L 10^3/uL
(1.2-3.4)
Neutrophils % 90.9 H %
(42.2-75.2)
Lymphocytes % 4.0 L %
(20.5-51.1)
Sodium 130 L mmol/L
(135-145)
Chloride 96 L mmol/L
(98-107)
Glucose 119 H mg/dl
(70-99)
Total Bilirubin 1.7 H mg/dl
(0.2-1.3)
AST 142 H U/L
(17-59)
ALT 287 H U/L
(0-50)
Alkaline Phosphatase 159 H U/L
(38-126)
Total Protein 6.1 L g/dl
(6.3-8.2)
Albumin 3.4 L g/dl
(3.5-5.0)
Urine Ketones 3+ A
(Negative)
Ur Occult Blood Reflex 2+ A
(Negative)
Urine Bilirubin 1+ A
(Negative)
Urine Urobilinogen 3+ A
(Neg - 1+)
Urine RBC 3-6 A /HPF
(0-2)
Urine Albumin (Reflex) 3+ A
(Neg - Trace)
10/30/24 13:45
10/30/24 13:45
Vital Signs
Initial and Last Documented VS:
Initial Vital Signs
Temp Pulse Resp BP Pulse Ox
97.7 F 79 18 157/104 94
10/30/24 12:48 10/30/24 12:48 10/30/24 12:48 10/30/24 12:48 10/30/24 12:48
Last Documented Vital Signs
Temp Pulse Resp BP Pulse Ox
99.2 F 82 25 143/95 98
10/30/24 22:14 10/31/24 00:15 10/31/24 00:15 10/31/24 00:15 10/31/24 00:15
<Jose Bowers, DO - Last Filed: 10/30/24 18:32>
Orders/Labs/Results
Orders:
Orders
10/30/24 Breakfast
Clear Liquid
At Your Request: Limited Participation
10/30/24 13:45
CMP [Comprehensive Metabolic Panel] Urgent
Complete Blood Count/With Diff Urgent
Lipase Urgent
10/30/24 14:59
0.9% Sodium Chloride 1000 ml [Nss] 1,000 ml IV BOLUS
Acetaminophen [Tylenol] 650 mg PO NOW STA
Ondansetron Injectable [Zofran] 4 mg IV NOW STA
10/30/24 15:00
US Abdomen Complete/Upper Urgent
Comment:
Reason For Exam: N/V, LFT elevation
10/30/24 15:21
Urinalysis Reflex To Culture Urgent
Date Specimen was Collected: 10/30/24
Time Specimen was Collected: 15:20
Urine Microscopic Reflex Cult Urgent
10/30/24 16:15
Norovirus by PCR Urgent
FREDDIE Source: Feces/Stool
Specimen Description:
Date Specimen was Collected: 10/30/24
Time Specimen was Collected: 16:14
STOOL [C difficile Antigen & Toxins] Urgent
FREDDIE Source: Feces/Stool
Specimen Description:
Date Specimen was Collected: 10/30/24
Time Specimen was Collected: 16:14
Stool Culture Urgent
FREDDIE Source: Feces/Stool
Specimen Description:
Date Specimen was Collected: 10/30/24
Time Specimen was Collected: 16:14
10/30/24 17:33
CT Abd/pelvis W Iv Cont Urgent
Comment:
Reason For Exam: Fevers, abdominal pain, N/V
10/30/24 18:00
COVID-19 Antigen Urgent
Source: Nasal Swab
Lactic Acid Q4H
Comment: CANCEL 2nd LACTIC ACID IF 1st LACTIC ACID IS LESS THAN 2
Blood Culture Q30M
FREDDIE Source: Blood/Venous
Specimen Description:
Blood Culture Q30M
FREDDIE Source: Blood/Venous
Specimen Description:
Influenza A+B Rapid Molecular Urgent
FREDDIE Source: Nasal Swab
Specimen Description:
10/30/24 18:17
Electrocardiogram (*1) Urgent
Reason for Study: Shortness of Breath
EKG- Treatment ONCE
Piperacillin/Tazo 3.375 Gram [Zosyn] 3.375 gram in 50 ml IV NOW
10/30/24 18:29
Pft Nif [RESP] Urgent
10/30/24 18:44
CR Chest Portable - 1 View Urgent
Comment:
Reason For Exam: SOB
Reason Study Needs to be Portable: Patient Unstable
10/30/24 18:55
Pyridostigmine [Mestinon] 30 mg PO NOW STA
10/30/24 19:15
Oxygen Therapy [O2 Therapy] [RESP] Urgent
Nasal Cannula Liter Flow: 2 LPM
Titrate/Wean O2 to maintain O2 sat greater than (%): 93
Wean Oxygen to Pre Admission Baseline Therapy-if applicable: Yes
Contact provider if nasal cannula O2 requirement > 6 liters: Yes
10/30/24 20:47
Admit/Transfer Patient As Directed
Co-Sign Provider:
Level of Care: Inpatient admission
Assign to:: ICU
Physician / Group: Jarek
Diagnosis: Gastroenteritis / Diverticulitis, Myasthenia Gravis
Reason for Hospitalization: Gastroenteritis / Diverticulitis, Myasthenia Gravis
Expected length of stay greater than two midnights?: Yes
ELOS- Estimated Length of Stay in days: 4
I certify the patient meets the requirements for IP care: Yes
Prednisone [Deltasone] 10 mg PO NOW STA
PRN Pain Medication Management As Directed
May give lesser potent ordered pain med per pt: Yes
preference::
Protocol:: Medication orders for pain may be administered in a
manner that supports deferring to patient preference
when the pt is:
- Requesting an ordered lesser potent pain medication.
Least to most potent pain medications are defined
as: acetaminophen < NSAID < tramadol < opioids
(morphine, oxycodone, hydromorphone).
- Requesting a lesser dose of the same medication IF
ORDERED.
- Requesting a less intrusive route of administration
if both routes are prescribed by the provider (PO <
IV).
10/30/24 20:50
Code Status As Directed
Resuscitation Status: Full Code
10/30/24 22:03
0.9% Sodium Chloride 1000 ml [Nss] 1,000 ml IV 125 mls/hr
Acetaminophen [Tylenol] 650 mg PO Q4HPRN PRN
Dextrose 50%-Water [Dextrose 50% Syringe] 12.5 grams IV [id number] PRN
Enoxaparin Sodium [Lovenox] 80 mg SC NOW STA
Glucagon [GlucaGen] 1 mg IM PRN PRN
Ondansetron Injectable [Zofran] 4 mg IV Q6HPRN PRN
Pft Nif [RESP] Q3H
10/30/24 22:03
Echo 2D MMode Doppler [Echo 2D MMode Color/Doppler] Routine
Reason for Study: SOB
NEUROLOGY CONSULT Routine
Consulting Provider: Mona Larry
Was physician already notified: Yes
Reason for consult: Myasthenia
Activity As Directed
Activity Level: Ambulate
With Assistance
Bedside Glucose Monitoring As Directed
Frequency: AC&HS
Additional Instructions:: Change to q6h if pt on TPN, tube feeding or not eating
Bladder Scan As Directed
Follow Bladder Retention/Intermittent Cath Algorithm?: Yes
PRN if no void in __ hours: 6
Frequency: Per Retention Algorithm
If Bladder Scan Result >: 400
then:: Straight cath
EKG with chest pain [ECG as needed] As Directed
ECG as needed for:: Chest Pain
I/O [Intake/ Output] As Directed
Frequency: Per unit guidelines
Neurological Checks As Directed
Frequency: q4h
Straight Cath As Directed
Frequency: Per Retention Algorithm
Additional Instructions: straight cath as needed per acute urinary retention algorithm for 24 hrs
Additional Instructions: for bladder scan greater than 400 mL
Vital Signs As Directed
Frequency: Per unit guidelines
Weight As Directed
Frequency: Daily
Cpap [RESP] Routine
Patient to use own unit?: No
Set Pressure (cm H2O): 10
Oxygen Liter Flow: 2
Instructions: HS and PRN.
Titrate for comfort (pt does not know home settings).
Oxygen Therapy [O2 Therapy] [RESP] Routine
Titrate/Wean O2 to maintain O2 sat greater than (%): 94
Ot Eval And Treat Routine
PT Consult [Pt Eval And Treat] Routine
Activity Level: Ambulate
With Assistance
Speech Therapy Eval & Treat Routine
DX Deep Vein Thrombosis Video Routine
10/30/24 22:57
BNP [NT-proBNP] Urgent
TSH Reflex To Free T4 Routine
Troponin I Urgent
10/30/24 23:00
Pyridostigmine [Mestinon] 60 mg PO TID
10/31/24 00:00
Ampicillin/Sulbactam 3 G [Unasyn] 3 gm 0.9% Sodium Chloride 100 ml [Nss] 100 ml IV Q6
10/31/24 01:03
Pft Nif [RESP] Q3H
10/31/24 06:00
Basic Metabolic Panel IN AM
Complete Blood Count/No Diff IN AM
Glycohemoglobin (HgbA1c) IN AM
LFT [Xfqvx-Fncd-Fwhbbhg] IN AM
Magnesium IN AM
Phosphorus IN AM
10/31/24 07:30
Insulin Aspart Corrective Low [Novolog Flexpen-Low Resistance] See Protocol SC AC
10/31/24 08:00
Allopurinol [Zyloprim] 100 mg PO DAILY
Amlodipine [Norvasc] 5 mg PO DAILY
Losartan [Cozaar] 100 mg PO DAILY
Pantoprazole [Protonix IV] 40 mg IV DAILY
Prednisone [Deltasone] 5 mg PO DAILY
Abnormal Lab Results
10/30/24 10/30/24
13:45 15:21
RBC 3.76 L 10^6/uL
(4.70-6.10)
Hgb 11.6 L g/dL
(13.0-18.0)
Hct 34.8 L %
(39.0-52.0)
RDW 15.4 H %
(11.5-14.5)
Plt Count 96 L 10^3/uL
(130-400)
Absolute Neuts (auto) 8.7 H 10^3/uL
(1.4-6.5)
Absolute Lymphs (auto) 0.4 L 10^3/uL
(1.2-3.4)
Neutrophils % 90.9 H %
(42.2-75.2)
Lymphocytes % 4.0 L %
(20.5-51.1)
Sodium 130 L mmol/L
(135-145)
Chloride 96 L mmol/L
(98-107)
Glucose 119 H mg/dl
(70-99)
Total Bilirubin 1.7 H mg/dl
(0.2-1.3)
AST 142 H U/L
(17-59)
ALT 287 H U/L
(0-50)
Alkaline Phosphatase 159 H U/L
(38-126)
Total Protein 6.1 L g/dl
(6.3-8.2)
Albumin 3.4 L g/dl
(3.5-5.0)
Urine Ketones 3+ A
(Negative)
Ur Occult Blood Reflex 2+ A
(Negative)
Urine Bilirubin 1+ A
(Negative)
Urine Urobilinogen 3+ A
(Neg - 1+)
Urine RBC 3-6 A /HPF
(0-2)
Urine Albumin (Reflex) 3+ A
(Neg - Trace)
10/30/24 13:45
10/30/24 13:45
Vital Signs
Initial and Last Documented VS:
Initial Vital Signs
Temp Pulse Resp BP Pulse Ox
97.7 F 79 18 157/104 94
10/30/24 12:48 10/30/24 12:48 10/30/24 12:48 10/30/24 12:48 10/30/24 12:48
Last Documented Vital Signs
Temp Pulse Resp BP Pulse Ox
99.2 F 82 25 143/95 98
10/30/24 22:14 10/31/24 00:15 10/31/24 00:15 10/31/24 00:15 10/31/24 00:15
<Kelli Abdalla PA-C - Last Filed: 10/31/24 00:34>
MDM/Problems Addressed
Differential Diagnosis Includes:
Not limited to: Viral gastroenteritis, biliary colic, acute cholecystitis, pancreatitis, medication side effect, etc.
MDM/Problems Addressed:
69-year-old male with history as documented presenting with shaking chills associated with nausea vomiting and nonbloody diarrhea for the past 2 days. No significant abdominal pain. Patient hypertensive with otherwise stable vital signs on arrival.
He is afebrile. Physical exam as above. Patient generally weak appearing and pale. Abdomen is soft with no focal tenderness. Heart regular rate and rhythm. He is mildly tachypneic although lungs are clear bilaterally. He is not hypoxic. No
evidence of lower extremity swelling or pain. Basic labs sent in triage with no clinically significant abnormalities on CBC. Chemistry shows mild hyponatremia and transaminitis. Very mild elevation of bilirubin. Differential broad at this time
although concern for possible intra-abdominal infection giving history of shaking chills. Will obtain abdominal ultrasound, give IV fluids and Zofran. Will send lactic and blood cultures given patient is immunocompromised. Will closely monitor
and reassess.
Update: Lactic acid normal. Abdominal ultrasound without acute abnormalities. Will check CT scan. On reassessment�patient did start complaining of increasing shortness of breath and became borderline hypoxic during CT scan. Concern of possible
underlying septic process contribute shortness of breath or acute myasthenia gravis exacerbation given recent vomiting and not tolerating p.o. Mestinon. Patient was placed on 2 L nasal cannula with improvement in symptoms. Will trial p.o.
Mestinon. EKG and chest x-ray were obtained secondary to shortness of breath which showed no acute abnormalities or ischemic process. Will initiate broad-spectrum IV antibiotics with Zosyn pending CT report. Patient will require admission.
Update: CT report shows mild uncomplicated diverticulitis. This may be potentially contributing to patient's GI symptoms and shaking chills. Diarrhea secondary to medication side effect is also consideration. Blood cultures and stool cultures
pending. Will admit patient to hospital for continuation of IV antibiotics and fluid resuscitation along with supplemental oxygen with concerns of potential myasthenia gravis exacerbation. Patient seen with attending physician. Patient accepted
to hospitalist service in stable condition.
Chronic conditions affecting care:
Hypertension, renal cell carcinoma on Cabometyx
Acute Exacerbation and/or Progression of Chronic Illness:
Acute myasthenia gravis exacerbation
<Kelli Abdalla PA-C - Last Filed: 10/31/24 00:34>
*Radiology
Radiology exam reviewed: preliminary read by ED provider (Chest x-ray reviewed by pa-no acute abnormalities) and radiology read reviewed
*Pulse Oximetry
Patient hypoxic: yes (Patient became borderline hypoxic and was placed on 2 L nasal cannula)
*EKG
Interpreted by ED Provider?: Yes
EKG Intrepretation Date: 10/30/24
Interpretation: abnormal
Comparison EKG: no changes
Heart Rate: 86
Rate: normal
Rhythm: sinus
Vancleave: normal axis and left axis deviation
Interval: normal QT interval
QRS Pattern: normal QRS
Ischemia: non-specific ST changes
*Engraver Interpretation
Rate: normal and Engraver- N/A
Interpretation: normal
Heart Rate: 80
Rhythm: sinus
*Critical Care Note
Total Time (30-74mins, 75-104mins- exclusive of procedures): Not Applicable
comment:
Critical care statement: A total of 30 minutes of critical care time was provided for this patient. This includes management of unstable vital signs, evaluation of the patient at bedside, reviewing the patient's pertinent medical records, discussion
with consultants, review of old EKGs and review of pertinent medical records. This time with separate from time utilized to perform the aforementioned documented procedures
<Jose Bowers DO - Last Filed: 10/30/24 18:32>
*Critical Care Note
Total Time (30-74mins, 75-104mins- exclusive of procedures): 30
<Kelli Abdalla PA-C - Last Filed: 10/31/24 00:34>
Patient Management
Discussion with other providers: Hospitalist
Escalation/DeEscalation of care consider admission/obs:
Admit indicated
ED Attending Note
<Kelli Abdalla PA-C - Last Filed: 10/31/24 00:34>
-
Portions of this chart may have been created with voice recognition software.� Occasional wrong word or��sound alike� substitutions may have occurred due to the inherent limitations of voice recognition software.
<Jose Bowers DO - Last Filed: 10/30/24 18:32>
ED Attending Note
Patient seen and examined by attending physician: Yes
ED Attending Note:
Seen with PA examined independently 69-year-old male ocular myasthenia, part of his workup for thymoma found of metastatic renal cell carcinoma treated with radiation and chemo targeted therapy, weaned off his Mestinon and started back on presents
with chills fatigue shortness of breath had 1 Mestinon pill today will check neph, CT of the abdomen has been ordered, cultures and antibiotics have been ordered will follow closely
Discharge Plan
Departure
Patient Disposition: Admit
Date of Disposition: 10/30/24
Time of Disposition: 19:17
Presentation/result/management discussed w/ accepting MD/DO: Hospitalist
Discharge Problem:
Nausea, vomiting and diarrhea, Myasthenia gravis with acute exacerbation
Interventions
Interventions:
*Risk Screen - Suicide Last Done: 10/30/24 12:48
*General Assessment Last Done: 10/30/24 12:48
*Neglect/Abuse Screening Last Done: 10/30/24 12:48
*ED- Fall Risk Assessment Last Done: 10/30/24 21:35
*ED COVID-19 Vaccine History Last Done: 10/30/24 14:33
*Nursing Disposition Last Done: 10/30/24 21:35
ZQ-Cjzkxj-Uzhohgbdhq Assessment Last Done: 10/30/24 21:00
[2024-10-30] MEDS: TYLENOL 650 MG PO (15:22)
[2024-10-30] MEDS: ZOFRAN 4 MG IV (15:23)
[2024-10-30] MEDS: NSS 1000 IV ×2 (15:23→23:09)
[2024-10-30 15:41] LABS: Urine Albumin 3+ (Neg - Trace); Urine Bilirubin 1+ (Negative); Urine Character Clear (Clear); Urine Color Yellow; Urine Glucose Negative (Negative); Urine Ketone 3+ (Negative); Urine Leukocyte Negative (Negative); Urine Nitrite Negative (Negative); Urine Occult Blood 2+ (Negative); Urine Specific Gravity 1.005 (<1.030); Urine Urobilinogen 3+ (Neg - 1+)
[2024-10-30 18:33] LABS: Lactic Acid 1.1 mmol/L (0.7-2.0)
[2024-10-30 18:59] LABS: COVID-19 Antigen Negative (Negative)
[2024-10-30] MEDS: ZOSYN 50 IV (19:14)
[2024-10-30] MEDS: MESTINON 30 MG PO (19:34)
[2024-10-30] MEDS: DELTASONE 10 MG PO (20:57)
--- NOTE | 2024-10-30 20:59 | HPS.HSE ---
Family Physician
-
Family Physician: Emma Lemos MD
Chief Complaint
-
SOB, GI symptoms
History of Present Illness
Patient is a 69y M with PMH significant for renal cell cancer and myasthenia who presents to ED complaining of GI symptoms since Thursday and worsening SOB. Patient states that he woke Thursday around midnight with nausea and had about 5-6 episodes
of non-bloody emesis. He reports fevers / shaking chills. He has felt very weak/ nauseated since that time. Few episodes of 'dry heaves' but no further emesis. He has had loose stools - but complains of chronic diarrhea for which he takes
Imodium about 2-3 times pr week. He has had little to eat / drink in the past 48 hours. He slept poorly last PM and complained of persistent nausea as well as dyspnea which was worse with lying flat.
Patient presented to the ED today for further evaluation and treatment.
Since arrival in the ED, he states that his nausea is improved after Zofran; however, his dyspnea seems to be the same or worse.
Patient is followed at [facility] for renal cell cancer.
He developed diplopia and was diagnosed with myasthenia in late 2022. During the evaluation for this, a metastatic rib lesion was noted on CT scan.
This led to diagnosis of R renal cell cancer. Patient underwent R nephrectomy, XRT and was started on chemotherapy.
He was able to wean off of mestinon and reportedly had no active symptoms of myasthenia.
Patient / family state that a few weeks ago he developed difficulty swallowing, drooping eyelid and general weakness. He was restarted on mestinon for recurrence of myasthenia symptoms.
Medical History
Past Medical History
Past Medical History: Reports Other
Additional Past Medical History:
Renal Cell Carcinoma s/p Surgery, XRT and on Chemotherapy (cabozantinib)
Myasthenia Gravis
Hypertension
DM-II
BPH
GILBERTO
Past Surgical History: Reports Other
Additional Past Surgical History:
Right Nephrectomy (05/2023)
Hernia Repair
Lumbar Discectomy / Fusion
Social History
Tobacco: Non-smoker
Alcohol: None
Drug: None
Personal:
Living: With Family
Family History
Family History: Not pertinent
Allergies / Home Medications
Allergies reflects when Allergies were last updated in [employer].
Home Medications with original date entered in [employer]
Allergy/Medication List:
Allergies
Allergy/AdvReac Type Severity Reaction Status Date / Time
aspirin Allergy Severe Hives Verified 10/30/24 12:48
naproxen Allergy Severe urinary Verified 10/30/24 12:48
burning
Home Medications
Multivitamin 1 tab PO DAILY 04/13/09
pioglitazone 15 mg-metformin 850 mg tablet (Actoplus MET) 1 tab PO BID 04/13/09
atorvastatin 40 mg tablet 10 mg PO DAILY 01/26/15
Allopurinol 100 mg PO DAILY 09/13/19
Melatonin 5 mg PO HS 09/13/19
Vitamin D3: 2,000 unit PO DAILY 09/13/19
Vitamin E : 450 mg PO DAILY 09/13/19
amlodipine 5 mg tablet (Norvasc) 5 mg PO DAILY #14 tabs 05/15/24
cabozantinib 20 mg tablet (Cabometyx) 20 mg PO DAILY 10/30/24
carvedilol 25 mg tablet (Coreg) 25 mg PO BID 10/30/24
escitalopram oxalate 10 mg tablet (Lexapro) 10 mg PO DAILY 10/30/24
losartan 100 mg tablet 100 mg PO DAILY 10/30/24
metformin 850 mg tablet 850 mg PO BID 10/30/24
pyridostigmine bromide 60 mg tablet (Mestinon) 30 mg PO TID 10/30/24
tamsulosin 0.4 mg capsule (Flomax) 0.4 mg PO DAILY 10/30/24
Review of Systems
-
History Source: Patient
A 12 point ROS was completed and negative except as noted: Yes
Constitutional: Reports Fever, Fatigue and Chills
EENT: Denies Sore Throat
Respiratory: Reports Trouble Breathing; Denies Cough
Cardiac: Denies Chest Pain or Palpitations
Abdomen/GI: Reports Nausea, Vomiting, Diarrhea and Anorexia; Denies Abdominal Pain, Bloody Stools or Black Stools
: Denies Dysuria or Frequency
Musculoskeletal: Denies Joint Pain or Edema
Neurological: Reports Weakness and Other (Difficulty swallowing.); Denies Dizzy or Headache
Psych: Denies Depression or Anxiety
Physical Exam
Vital Signs
Vital Signs
Temp Pulse Resp BP Pulse Ox
98.3 F 79 25 140/88 96
10/30/24 19:11 10/30/24 20:00 10/30/24 20:19 10/30/24 20:00 10/30/24 20:00
Physical Exam
General: Other (Ill-appearing 69y M in mild respiratory distress / increased work of breathing. Pale appearance.)
HEENT: Moist mucous membranes and PERRLA
Respiratory: Clear and Other (Good efforts during exam. No focal W/R/R.); No Wheezes, Rales or Rhonchi
Cardiac: S1/S2 and Regular Rhythm; No Murmur
GI: Other (Obese, mild RUQ tenderness. No rebound / guarding.)
Musculoskeletal: No Clubbing, No Cyanosis and No Edema
Neuro: AO x 3
Laboratory Results
-
10/30/24 13:45
10/30/24 13:45
Laboratory Results
Lactic Acid 1.1 mmol/L (0.7-2.0) 10/30/24 18:00
Total Bilirubin 1.7 mg/dl (0.2-1.3) H 10/30/24 13:45
AST 142 U/L (17-59) H 10/30/24 13:45
ALT 287 U/L (0-50) H 10/30/24 13:45
Alkaline Phosphatase 159 U/L (38-126) H 10/30/24 13:45
Lipase 30 U/L (23-300) 10/30/24 13:45
Impression/Plan
-
A/P: Patient is a 69y M with PMH significant for RCC, myasthenia gravis and DM-II who presents to ED complaining of N/V/D and SOB.
Gastroenteritis
Possible Sigmoid Diverticulitis
- Admit for further evaluation and treatment.
- Symptoms sound more c/w gastroenteritis - likely viral.
- CT scan done in the ED today shows 'mild acute diverticulitis'.
- Patient has had diverticulitis in the past and current symptoms are not similar.
- Supportive care including antiemetics, IVFs, etc.
- Will continue with IV abx for now - follow temperature curve, WBC, symptoms, etc.
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
Hypoxemic Respiratory Insufficiency
- Patient with worsening SOB over the past few days.
- Initially had ocular symptoms (Fall 2022).
- New symptoms just in the past few weeks of swallow difficulty, ptosis, weakness.
- NIF in the ED is 50. Continue to follow serial measurements.
- Increase mestinon to 60mg TID.
- Prednisone now and daily pending further evaluation.
- Neurology consulted for additional recommendations.
- +/- IVIG treatment if worsening dyspnea, declining respiratory metrics, etc.
Abnormal LFTs
- ? secondary to acute viral process +/- chemo agent, etc.
- CT and US done in the ED show possible fatty infiltration and otherwise no specific hepatic abnormality.
- Follow for changes during stay.
- Monitor for any new symptoms.
Renal Cell Cancer
- s/p R nephrectomy, rib XRT and currently on chemo. Followed at [facility].
- Hold chemo agent acutely.
- Follow-up with [facility] after acute hospital stay.
Benign Hypertension
- Stable. Continue home medications with holding parameters.
DM-II
- Stable. Hold PO regimen acutely.
- Follow glucose and cover with SSI as needed.
- Update A1C.
Chronic Hyponatremia
- Na = 130 which is consistent with prior values / baseline.
- Follow for changes during IVF support.
GILBERTO
- Continue CPAP at night and PRN.
- Titrate settings for comfort as patient does not recall home settings.
DVT Prophylaxis: Lovenox
Code Status: Full
[2024-10-30 22:13] LABS: Glucose - Point of Care 145 mg/dl (70-99)
[2024-10-30] MEDS: LOVENOX 90 MG SC (23:11)
[2024-10-30] MEDS: MESTINON 60 MG PO (23:12)
[2024-10-30 23:15] LABS: HCO3 22.2 mmol/L (21-28); O2 Saturation % 93.6 % (94-98); PCO2 35 mmHg (35-48); PO2 63 mmHg (83-108); pH 7.41 (7.35-7.45)
[2024-10-30 23:19] LABS: INR 1.25; Magnesium 1.6 mg/dl (1.6-2.3)
[2024-10-30 23:22] LABS: APTT 34.2 Sec (23.4-35.0)
[2024-10-30 23:35] LABS: NT-proBNP 2770 pg/ml; Troponin I 0.026 ng/ml
--- NOTE | 2024-10-30 23:45 | PTCARENOTE ---
handoff competed with ED RN
[2024-10-31] VITALS (23 sets, daily range): BP systolic 111–164; BP diastolic 81–106; PULSE 72–73; O2SAT 93–94; BMI 29.1
--- NOTE | 2024-10-31 00:05 | PTCARENOTE ---
On assessment pt tachypneic, labored breathing, c/o increased SOB, NON rebreather on from ED, EHS TEACHER at the bedside to assess pt, SR on the monitor, lungs clear, placed on NC for a short time then placed on CPAP per order, clear liquid diet, voided in
urinal, skin intact, call [facility] in reach
[2024-10-31] MEDS: UNASYN IV ×5 (01:08→23:05)
[2024-10-31 04:04] LABS: Hematocrit 31.7 % (39.0-52.0); Hemoglobin 10.8 g/dL (13.0-18.0); Mean Corp Hgb Conc. 34.1 g/dL (33.0-37.0); Mean Corpuscular Hgb 31.6 pg (27.0-31.0); Mean Corpuscular Volume 92.7 fL (80.0-94.0); Mean Platelet Volume 8.8 fL (7.4-10.4); Platelet Count 91 10^3/uL (130-400); Red Blood Cell Count 3.42 10^6/uL (4.70-6.10); Red Cell Dist. Width 15.5 % (11.5-14.5)
--- NOTE | 2024-10-31 04:07 | PTCARENOTE ---
pt states 'feeling better', remains on CPAP and tolerating, call [facility] in reach
[2024-10-31 04:30] LABS: ALT (SGPT) 220 U/L (0-50); AST (SGOT) 86 U/L (17-59); Albumin 3.3 g/dl (3.5-5.0); Alkaline Phosphatase 133 U/L (38-126); Blood Urea Nitrogen 15 mg/dl (9-20); Calcium 7.9 mg/dl (8.4-10.2); Carbon Dioxide 22 mmol/L (22-30); Chloride 100 mmol/L (98-107); Direct Bilirubin 0.9 mg/dl (0.0-0.4); Estimated Creatinine Clearance 71 ml/min; Glucose 118 mg/dl (70-99); Magnesium 1.6 mg/dl (1.6-2.3); Phosphorus 3.2 mg/dl (2.5-4.5); Potassium 4.5 mmol/L (3.5-5.1); Sodium 132 mmol/L (135-145); Total Bilirubin 1.6 mg/dl (0.2-1.3); Total Protein 5.8 g/dl (6.3-8.2); eGFR > 60.00
[2024-10-31 04:37] LABS: Troponin I 0.026 ng/ml
[2024-10-31] MEDS: NSS 1000 IV (05:58)
--- NOTE | 2024-10-31 07:11 | CON.INTV ---
Consultation
Consultation Request
Date/Time Consultation Requested: 10/31/24
Date/Time Consultation Performed: 10/31/24
Performing Provider: Xavier
Reason for Consultation: ICU
Medical History
-
History of Present Illness:
Patient is a 69-year-old male with previous history of renal cell carcinoma, myasthenia gravis presenting to ER with complaints of nausea vomiting, loose stools, chronic diarrhea, shortness of breath, decreased p.o. intake for the past 48 hours.
In ER, CTAP obtained indicating possible sigmoid diverticulitis, started on IV antibiotics. Shortness of breath likely related to myasthenia flare, NIF completed in ED is -50. Admitted to ICU.
Past Medical History
Past Medical History: Other (see list below)
Social History
Tobacco: Non-smoker
Alcohol: None
Drug: None
Family History
Family History: Reviewed & Not Pertinent
Allergies / Home Medications
Allergies
Allergy/AdvReac Type Severity Reaction Status Date / Time
aspirin Allergy Severe Hives Verified 10/30/24 12:48
naproxen Allergy Severe urinary Verified 10/30/24 12:48
burning
Home Medications
�Medication �Instructions �Recorded �Confirmed �Last Taken �Type
Multivitamin 1 tab PO DAILY Supplement 04/13/09 10/30/24 01/25/15 History
pioglitazone 15 mg-metformin 850 1 tab PO BID Diabetes 04/13/09 10/30/24 01/25/15 History
mg tablet (Actoplus MET)
atorvastatin 40 mg tablet 10 mg PO DAILY High Cholesterol 01/26/15 10/30/24 01/25/15 History
Allopurinol 100 mg PO DAILY Gout 09/13/19 10/30/24 Unknown History
Melatonin 5 mg PO HS Sleep 09/13/19 10/30/24 Unknown History
Vitamin D3: 2,000 unit PO DAILY Supplement 09/13/19 10/30/24 Unknown History
Vitamin E : 450 mg PO DAILY Supplement 09/13/19 10/30/24 Unknown History
amlodipine 5 mg tablet (Norvasc) 5 mg PO DAILY #14 tabs 05/15/24 10/30/24 Unknown Rx
cabozantinib 20 mg tablet 20 mg PO DAILY Cancer 10/30/24 10/30/24 Unknown History
(Cabometyx)
carvedilol 25 mg tablet (Coreg) 25 mg PO BID Blood Pressure 10/30/24 10/30/24 Unknown History
escitalopram oxalate 10 mg tablet 10 mg PO DAILY Mental 10/30/24 10/30/24 Unknown History
(Lexapro) Health/Anxiety
losartan 100 mg tablet 100 mg PO DAILY Blood Pressure 10/30/24 10/30/24 Unknown History
metformin 850 mg tablet 850 mg PO BID Diabetes 10/30/24 10/30/24 Unknown History
pyridostigmine bromide 60 mg 30 mg PO TID Neurological Condition 10/30/24 10/30/24 Unknown History
tablet (Mestinon)
tamsulosin 0.4 mg capsule (Flomax) 0.4 mg PO DAILY Urinary Issue 10/30/24 10/30/24 Unknown History
Review of Systems
-
History Source: Patient
All other systems: Negative unless noted
Vitals / Labs / Diagnostic Testing
Vital Signs
Temp Pulse Resp BP Pulse Ox
97.8 F 72 19 140/85 99
10/31/24 04:02 10/31/24 06:00 10/31/24 06:00 10/31/24 06:00 10/31/24 06:00
Lab Data
10/31/24 03:44
10/31/24 03:44
Laboratory Results
10/30/24 10/30/24
22:57 23:09
PT 16.0 H
INR 1.25
APTT 34.2
pH 7.41
pCO2 35
pO2 63 L
HCO3 22.2
O2 Delivery Level
Microbiology
10/30/24 18:00 Nasal Swab Influenza Types A & B (SEBASTIÁN) - Final
Negative for Influenza A & B, NAAT
Negative results must be combined with clinical observations
and patient history.
Nucleic Acid Amplification test (NAAT)performed on the
[employer] platform.
Diagnostic Testing:
Physical Exam
-
HEENT: Normocephalic, Anicteric and Moist Mucous Membranes
Cardiovascular: S1/S2 and Regular Rhythm
Respiratory: Clear and Non-Labored Respirations
GI: Soft, Non Distended and Non Tender
Neurology: Awake, Alert, Oriented and No Motor Deficits
Skin: Warm, Dry and Good Color
General: Comfortable and Other (NAD)
Assessment
-
Patient is a 69-year-old male with previous history of renal cell carcinoma, myasthenia gravis presenting to ER with complaints of nausea vomiting, loose stools, chronic diarrhea, shortness of breath, decreased p.o. intake for the past 48 hours.
In ER, CTAP obtained indicating possible sigmoid diverticulitis, started on IV antibiotics. Shortness of breath likely related to myasthenia flare, NIF completed in ED is -50. Admitted to ICU
Myasthenis flare, NIF -50, mild
SOB
N/V/D
Acute sigmoid diverticulitis
Thrombocytopenia
Hyponatremia, mild
Transaminitis, mild
Conditions present [employer]
Renal Cell Carcinoma s/p R nephrectomy, XRT and on Chemotherapy (cabozantinib)
Myasthenia Gravis
Hypertension
DM-II
BPH
GILBERTO
Right Nephrectomy (05/2023)
Hernia Repair
Lumbar Discectomy / Fusion
Plan
No current signs of metabolic encephalopathy or MS changes/following commands
Denies pain at this time.
Likely mild MG flare, neuro following for further management
Pain/sedation: PRN
RASS goals: 0
Hemodynamically stable, not requiring pressors.
Cardiac history reviewed--HTN
Prior ECHO reviewed indicating normal EF, no RWMA
Repeat pending
Resume home meds
Monitor on telemetry
Oxygen needs: stable on RA
Prior history of lung disease: GILBERTO on CPAP, resumed nightly
NIF -50 which is normal range for men, can repeat daily
SOB noted with laying flat, would call it a mild flare of MG
Can use PAP more often, prednisone added--pls call if clinical condition changes
Defer to Neuro for further management
Supplemental O2 as indicated to maintain sats > 89%
CXR/CT reviewed indicating no acute findings
Diverticulitis on CT, on IV abx
Diet advancement
Wardrobe Technician recommendations
Aspiration precautions, HOB > 30 degrees
Speech therapy eval can be considered if at elevated risk
GI prophylaxis if indicated for mechanical ventilation >48 hours, prior history of GERD, stress ulcer formation in the critically ill
Creat at baseline, RCC s/p nephrectomy, BPH history
Void trials
Follow urine output, critical I/Os
Replete electrolytes as needed
Started on empiric antibiotics
Cultures sent/pending
De-escalate as indicated
Follow fever trend, WBC count
Lactate elevated on admission, continue to trend until <2
CBC stable, no signs of bleeding or coagulopathy.
DVT prophylaxis as assessed based on risk, including mechanical SCDs
Can transfuse if indicated for Hb <7, plt < 10
INR WNL
H/o diabetes, can continue on home meds, SS for coverage
No indication for ICU status at this time, will transfer to tele for further management. D/w care team, in agreement. We will sign off upon transfer.
Diagnostic Data
Chest X-Ray: 10/30/24- Mild bibasilar atelectasis and/or pneumonia.
05/15/24- 1. Minimal bilateral pleural effusions.
2. Moderate tortuosity of the descending thoracic aorta.
3. Mild cardiomegaly.
4. Destructive osseous metastasis in the right posterior 11th rib.
CT Scan: AP 10/30/24- 1. Mild acute uncomplicated diverticulitis of the distal descending/proximal sigmoid colon.
2. Small right and trace left pleural effusions.
3. Redemonstration of posterior right 11th rib metastasis, decreased from prior.
Echo: 09/19/22- Normal left ventricular size and systolic function. LV ejection fraction is 60-65%. Mild concentric left ventricular hypertrophy. No significant valvular disease. No prior study available for comparison.
PFT's:
Reports and relevant images were personally reviewed.
Critical Care time 55 mins -- The patient is admitted for acute critical illness for the treatment of vital organ failure and/or prevention of further life-threatening conditions. Total care includes time spent in review of history, physical exam,
medications, hemodynamic/ventilator parameters, laboratory data, imaging and discussion with house staff, pharmacy, respiratory therapy, dianeticist, and nursing.
[2024-10-31] MEDS: ZYLOPRIM 100 MG PO (07:34)
[2024-10-31] MEDS: PROTONIX IV 40 MG IV (07:34)
[2024-10-31] MEDS: NORVASC 5 MG PO (07:34)
[2024-10-31] MEDS: DELTASONE 5 MG PO (07:34)
[2024-10-31] MEDS: MESTINON 60 MG PO ×2 (07:34→15:37)
[2024-10-31] MEDS: NOVOLOG FLEXPEN-LOW RESISTANCE SC ×2 (07:35→16:30)
[2024-10-31] MEDS: COZAAR 100 MG PO (07:35)
[2024-10-31] MEDS: TYLENOL 650 MG PO ×2 (07:35→22:01)
[2024-10-31 07:51] LABS: Glucose - Point of Care 127 mg/dl (70-99)
--- NOTE | 2024-10-31 07:59 | PTCARENOTE ---
recd pt 0715 handoff at bedside, on CPAP, tolerating. Resp therapy rounded, to room air, sats good with no SOB. Ordered clear liquid breakfast. No distress, hyperactive bowel sounds. Reviewed plan for the day. Notes feeling much better. Warm
blankets for comfort. Rest of assessment as documented.
--- NOTE | 2024-10-31 09:11 | PTOTSP ---
Dysphagia Eval
Patient at an elevated risk for acute dysphagia given acute worsening of MG and changes to respiratory status. He reported signs concerning for an unspecified pharyngeal dysphagia (i.e., sensation of stasis with solids prior to admission;
inconsistent coughing w/ thin liquids via tsp). No overt s/s of aspiration observed during clinical bedside swallow eval.
Recommend:
1. IDDSI Level 4 Puree, Thin Liquids
2. Medications 1 at a time w/ sips of liquid or in puree
3. Strategies: upright to 90 degrees, small sips/bites, slow rate, reflux precautions
4. Video swallow study to objectively assess pharyngeal swallow, r/o retention, r/o silent aspiration (Patient requested to hold until 11/01)
[2024-10-31 09:40] LABS: Glycohemoglobin (HgbA1c) 6.1 % (4.0-5.6)
--- NOTE | 2024-10-31 12:00 | PTCARENOTE ---
No other change. VS noted. awaiting tele bed.
[2024-10-31 12:20] LABS: Glucose - Point of Care 206 mg/dl (70-99)
[2024-10-31] MEDS: NOVOLOG FLEXPEN-LOW RESISTANCE 2 UNITS SC (12:27)
--- NOTE | 2024-10-31 12:33 | CON.NEURO ---
Addendum entered and electronically signed by West Vargas MD 10/31/24 13:01:
CPT [id number]
Original Note:
Neuro Assessment/Plan
Assessment
Myasthenia gravis, generalized, with exacerbation probably provoked by
seems to be doing pretty well today
Plan
agree with increased Mestinon to 60 TID, and adding prednisone 5 mg daily for now;
if he continues doing well then he can probably go back to Mestinon 30 TID and off prednisone
Consultation
Order
Date of Consultation: 10/31/24
Requesting Provider: Denia Hoover
Reason for Consult: Myasthenia gravis exacerbation
Subjective/Objective
Subjective Data
Date of Service: October 31, 2024
He is a 69 year old man with history of ocular myasthenia gravis since 2022, initially presented with ptosis, diplopia. He was on Mestinon some time, and then came off it as he was doing well; previously had diarrhea with Mestinon 60 TID.
Presented with several days of GI symptoms, worsening SOB, generalized weakness. found to have mild diverticulitis and treated with antibiotics. Last night he reports feeling very short of breath, like he was going to . Today he reports feeling
much better and is sitting up in a chair
Objective Data
Vital Signs
Temp Pulse Resp BP Pulse Ox
36.5 C 72 25 143/90 95
10/31/24 11:08 10/31/24 08:00 10/31/24 08:00 10/31/24 08:00 10/31/24 08:00
Lab Results
10/31/24 03:44
10/31/24 03:44
PT 16.0 Sec (11.4-14.6) H 10/30/24 22:57
INR 1.25 10/30/24 22:57
APTT 34.2 Sec (23.4-35.0) 10/30/24 22:57
Sodium 132 mmol/L (135-145) L 10/31/24 03:44
Potassium 4.5 mmol/L (3.5-5.1) 10/31/24 03:44
BUN 15 mg/dl (9-20) 10/31/24 03:44
Glucose 118 mg/dl (70-99) H 10/31/24 03:44
Calcium 7.9 mg/dl (8.4-10.2) L 10/31/24 03:44
Phosphorus 3.2 mg/dl (2.5-4.5) 10/31/24 03:44
Uak-U-Fbqldroiyon Pept 2770 pg/ml 10/30/24 22:57
Patient Allergies
aspirin Allergy (Severe, Verified 10/30/24 12:48)
Hives
naproxen Allergy (Severe, Verified 10/30/24 12:48)
urinary burning
Physical Exam
-
sitting up in chair
AAOx3, speech clear, language intact, speaking in full sentences w/o resp distress
VFF, EOMI, face symmetric
full strength b/l UE/LE
sensation intact to touch
DTRs symmetrically absent
Medications
-
Active Medications
Generic Name Dose Route Start Last Admin
Trade Name Freq PRN Reason Stop Dose Admin
Acetaminophen 650 mg 10/30/24 22:03 10/31/24 07:35
Acetaminophen 325 Mg Tablet PO 11/27/24 22:02 650 mg
Q4HPRN PRN Administration
Mild Pain / Temp > 101
Albuterol Sulfate 2.5 mg 10/30/24 22:29
Albuterol Nebs 2.5 Mg/3 Ml Ampul INH
R Q4HPRN PRN
SOB/cough
Protocol
Allopurinol 100 mg 10/31/24 08:00 10/31/24 07:34
Allopurinol 100 Mg Tablet PO 11/28/24 07:59 100 mg
DAILY RAJIV Administration
Amlodipine Besylate 5 mg 10/31/24 08:00 10/31/24 07:34
Amlodipine 5 Mg Tablet PO 11/28/24 07:59 5 mg
DAILY RAJIV Administration
Dextrose 12.5 grams 10/30/24 22:03
Dextrose 50% (0.5 Grams/Ml) 50 Ml Syringe IV 11/27/24 22:02
[id number] PRN
hypoglycemia
Protocol
Glucagon 1 mg 10/30/24 22:03
Glucagon 1 Mg Vial IM 11/27/24 22:02
PRN PRN
hypoglycemia
Protocol
Hydralazine HCl 10 mg 10/30/24 22:33
Hydralazine 20 Mg/Ml Vial IV 11/27/24 22:32
Q4HPRN PRN
SBP>140
Ampicillin Sodium/Sulbactam 120 mls @ 240 mls/hr 10/31/24 00:00 10/31/24 12:07
Sodium 3 gm/ Sodium Chloride IV 120 mls
Q6 RAJIV Administration
Sodium Chloride 1,000 mls @ 125 mls/hr 10/30/24 22:03 10/31/24 05:58
Nss IV 1,000 mls
.Q8H RAJIV Administration
Insulin Aspart 0 units 10/31/24 07:30 10/31/24 12:27
Insulin Aspart Low Resistance 300 Units/3 Ml Pen.Injctr SC 11/28/24 07:29 2 units
AC RAJIV Administration
Protocol
Losartan Potassium 100 mg 10/31/24 08:00 10/31/24 07:35
Losartan 100 Mg Tablet PO 11/28/24 07:59 100 mg
DAILY RAJIV Administration
Ondansetron HCl 4 mg 10/30/24 22:03
Ondansetron 4 Mg/2 Ml Vial IV 11/27/24 22:02
Q6HPRN PRN
nausea and vomiting
Pantoprazole Sodium 40 mg 10/31/24 08:00 10/31/24 07:34
Pantoprazole Sodium 40 Mg/10 Ml Vial IV 11/28/24 07:59 40 mg
DAILY RAJIV Administration
Prednisone 5 mg 10/31/24 08:00 10/31/24 07:34
Prednisone 5 Mg Tablet PO 11/28/24 07:59 5 mg
DAILY RAJIV Administration
Pyridostigmine Dickinson 60 mg 10/30/24 23:00 10/31/24 07:34
Pyridostigmine 60 Mg Tablet PO 11/27/24 22:59 60 mg
TID RAJIV Administration
Sodium Chloride 0 flush 10/30/24 23:00
Sodium Chloride 0.9% (Flush) Syringe IV 11/27/24 22:59
PER PROTOCOL RAJIV
Home Medications
�Medication �Instructions �Recorded
Multivitamin 1 tab PO DAILY Supplement 04/13/09
pioglitazone 15 mg-metformin 850 1 tab PO BID Diabetes 04/13/09
mg tablet (Actoplus MET)
atorvastatin 40 mg tablet 10 mg PO DAILY High Cholesterol 01/26/15
Allopurinol 100 mg PO DAILY Gout 09/13/19
Melatonin 5 mg PO HS Sleep 09/13/19
Vitamin D3: 2,000 unit PO DAILY Supplement 09/13/19
Vitamin E : 450 mg PO DAILY Supplement 09/13/19
amlodipine 5 mg tablet (Norvasc) 5 mg PO DAILY #14 tabs 05/15/24
cabozantinib 20 mg tablet 20 mg PO DAILY Cancer 10/30/24
(Cabometyx)
carvedilol 25 mg tablet (Coreg) 25 mg PO BID Blood Pressure 10/30/24
escitalopram oxalate 10 mg tablet 10 mg PO DAILY Mental 10/30/24
(Lexapro) Health/Anxiety
losartan 100 mg tablet 100 mg PO DAILY Blood Pressure 10/30/24
metformin 850 mg tablet 850 mg PO BID Diabetes 10/30/24
pyridostigmine bromide 60 mg 30 mg PO TID Neurological Condition 10/30/24
tablet (Mestinon)
tamsulosin 0.4 mg capsule (Flomax) 0.4 mg PO DAILY Urinary Issue 10/30/24
pantoprazole 40 mg tablet,delayed 40 mg PO DAILY 10/31/24
release
--- NOTE | 2024-10-31 14:05 | CM ---
CM following re: discharge planning.
Discussed in rounds, reviewed pt's chart, met with pt and pt's spouse at bedside.
Pt is a 69 year old male, admitted with primary dx of Gastroenteritis. Sigmoid Diverticulitis. PMH includes: renal cell cancer and myasthenia.
Pt reports he lives with spouse in a split level house, has a son, ambulates with a cane, has C-Pap machine provided by [facility]
PT and OT evaluations noted - home PT/OT recommended. Both pt and his spouse are aware, pt stated his PCP gave a script for outpatient therapy and he would prefer outpatient therapy instead of home PT/OT. Pt's spouse stated she will transport to and
from therapy.
PCP: Emma Lemos
Pharmacy: [facility].
D/c plan: home with outpatient therapy and family support. Spouse to transport at discharge.
CM will follow with discharge updates as hospitalization progresses
[2024-10-31] MEDS: NSS IV (15:02)
--- NOTE | 2024-10-31 15:53 | W.PN.HOSP.TC ---
Today's Communication/Plan
-
Stable for telemetry
Assessment / Plan
Assessment / Plan
HPI: 69y M with PMH significant for renal cell cancer and myasthenia who presents to ED complaining of GI symptoms since Thursday and worsening SOB.
Gastroenteritis
Possible Sigmoid Diverticulitis
- Symptoms sound more c/w gastroenteritis - likely viral.
- CT scan done in the ED today shows 'mild acute diverticulitis'.
- Patient has had diverticulitis in the past and current symptoms are not similar.
- Continue IV Unasyn day 2, supportive care
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
Hypoxemic Respiratory Insufficiency
- New symptoms just in the past few weeks of swallow difficulty, ptosis, weakness.
- NIF in the ED is 50. Continue to follow serial measurements.
- Appreciate neurology input, increased mestinon to 60mg TID, started prednisone 5 mg daily
- Now on RA, was on 6L
Dysphagia
- SPL recommends pur�ed diet, VSE
Abnormal LFTs
- ? secondary to acute viral process +/- chemo agent, etc.
- CT and US done in the ED show possible fatty infiltration and otherwise no specific hepatic abnormality.
- Improving, monitor
Renal Cell Cancer
- S/p R nephrectomy, rib XRT and currently on chemo. Followed at [place].
- Hold chemo agent acutely.
- Follow-up with [facility] after acute hospital stay.
Benign Hypertension
- Stable. Continue home medications with holding parameters.
DM-II
- Hold PO regimen acutely.
- Follow glucose and cover with SSI as needed.
Chronic Hyponatremia
- Consistent with prior values / baseline.
- Follow for changes during IVF support.
GILBERTO
- Continue CPAP at night and PRN.
- Titrate settings for comfort as patient does not recall home settings.
DVT Prophylaxis: Lovenox
Code Status: Full
Total time spent to see the patient on the floor, examine the patient, review data and lab results, discuss treatment plan with patient, nursing staff around 51 minutes.
Physical Exam
General: No acute distress
HEENT: Normocephalic, Atraumatic, EOMI, MMM
Respiratory: Clear to Auscultation bilaterally
Cardiac: Normal S1/S2, Regular Rate and Rhythm
GI: Soft, Nontender, Nondistended, Normal Bowel Sounds
Extremities: No Clubbing, Cyanosis, or Edema
Neuro: Nonfocal/Grossly Intact
Psych: Calm, Cooperative
Derm: No Visible lesions
Anticipated Discharge: 24 - 48 hours
Subjective/Interval History
-
Date of Service: October 31, 2024
Patient reports diarrhea is improved. No nausea, no vomiting. No abdominal pain. No fever.
Objective Data
-
Labs:
Laboratory Results
10/31/24
03:44
WBC 10.0
Hgb 10.8 L
Hct 31.7 L
Plt Count 91 L
Sodium 132 L
Potassium 4.5
Chloride 100
Carbon Dioxide 22
BUN 15
Creatinine 1.0
Glucose 118 H
Calcium 7.9 L
Total Bilirubin 1.6 H
AST 86 H
ALT 220 H
Alkaline Phosphatase 133 H
Vital Signs:
Vital Signs
Temp Pulse Resp BP Pulse Ox
97.7 F 73 28 141/85 98
10/31/24 14:58 10/31/24 15:00 10/31/24 15:00 10/31/24 14:58 10/31/24 15:00
I&O
10/30/24 10/31/24 11/01/24
06:59 06:59 06:59
Intake Total 525 / 650 1600 / 1600
Output Total 600 / 600 200 / 200
Balance -75 / 50 1400 / 1400
[2024-10-31 16:25] LABS: Glucose - Point of Care 128 mg/dl (70-99)
[2024-10-31] MEDS: ZOFRAN 4 MG IV (17:45)
[2024-10-31] MEDS: LOVENOX 40 MG SC (18:39)
[2024-10-31 20:59] LABS: Glucose - Point of Care 124 mg/dl (70-99)
[2024-10-31] MEDS: MESTINON PO (21:36)
--- NOTE | 2024-10-31 22:06 | PTCARENOTE ---
Patient refusing 2200 dose of Mestinon. Medication education provided. Per patient, he spoke to his primary neurologist on the phone who said 'the dose was too high and didn`t tolerate it before'. Patient states that he is having diarrhea from the
medication. 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
[2024-10-31] MEDS: APRESOLINE 10 MG IV (23:36)
[2024-11-01] VITALS (14 sets, daily range): BP systolic 132–160; BP diastolic 67–104; PULSE 89; BMI 29.1
[2024-11-01] MEDS: UNASYN IV ×3 (05:32→17:08)
[2024-11-01 07:51] LABS: Glucose - Point of Care 108 mg/dl (70-99)
[2024-11-01] MEDS: NOVOLOG FLEXPEN-LOW RESISTANCE SC ×3 (07:54→16:32)
[2024-11-01 08:10] LABS: Hematocrit 32.7 % (39.0-52.0); Mean Corp Hgb Conc. 33.6 g/dL (33.0-37.0); Mean Corpuscular Hgb 31.3 pg (27.0-31.0); Mean Corpuscular Volume 92.9 fL (80.0-94.0); Mean Platelet Volume 8.8 fL (7.4-10.4); Platelet Count 88 10^3/uL (130-400); Red Blood Cell Count 3.52 10^6/uL (4.70-6.10); Red Cell Dist. Width 15.6 % (11.5-14.5); White Blood Cell Count 5.8 10^3/uL (4.8-10.8)
[2024-11-01 08:22] LABS: ALT (SGPT) 168 U/L (0-50); AST (SGOT) 53 U/L (17-59); Albumin 3.1 g/dl (3.5-5.0); Alkaline Phosphatase 148 U/L (38-126); Blood Urea Nitrogen 15 mg/dl (9-20); Calcium 8.3 mg/dl (8.4-10.2); Carbon Dioxide 26 mmol/L (22-30); Chloride 103 mmol/L (98-107); Estimated Creatinine Clearance 71 ml/min; Glucose 100 mg/dl (70-99); Magnesium 2.1 mg/dl (1.6-2.3); Phosphorus 1.9 mg/dl (2.5-4.5); Potassium 3.7 mmol/L (3.5-5.1); Sodium 136 mmol/L (135-145); Total Bilirubin 1.1 mg/dl (0.2-1.3); Total Protein 5.7 g/dl (6.3-8.2); eGFR > 60.00
[2024-11-01] MEDS: NORVASC 5 MG PO (08:25)
[2024-11-01] MEDS: DELTASONE 5 MG PO (08:25)
[2024-11-01] MEDS: COZAAR 100 MG PO (08:25)
[2024-11-01] MEDS: MESTINON 60 MG PO (08:26)
[2024-11-01] MEDS: PROTONIX 40 MG PO (08:26)
[2024-11-01] MEDS: ZYLOPRIM 100 MG PO (08:26)
--- NOTE | 2024-11-01 09:53 | W.PN.HOSP.TC ---
Today's Communication/Plan
-
see bold
Assessment / Plan
Assessment / Plan
HPI: 69y M with PMH significant for renal cell cancer and myasthenia who presents to ED complaining of GI symptoms since Thursday and worsening SOB.
Gastroenteritis
Possible Sigmoid Diverticulitis
E. coli bacteremia
- Symptoms sound more c/w gastroenteritis - likely viral.
- CT scan done in the ED today shows 'mild acute diverticulitis'.
- Patient has had diverticulitis in the past and current symptoms are not similar.
- Continue IV Unasyn day 3, supportive care
- 1 out of 2 blood cultures positive for E. coli, consult ID
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
Hypoxemic Respiratory Insufficiency
- New symptoms just in the past few weeks of swallow difficulty, ptosis, weakness.
- NIF in the ED is 50. Continue to follow serial measurements.
- Appreciate neurology input, increased mestinon to 60mg TID, started prednisone 5 mg daily
- Now on RA, was on 6L
Dysphagia
- SPL recommends pur�ed diet, VSE completed 11/01
Abnormal LFTs
- ? secondary to acute viral process +/- chemo agent, etc.
- CT and US done in the ED show possible fatty infiltration and otherwise no specific hepatic abnormality.
- Improving, monitor
Renal Cell Cancer
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
- S/p R nephrectomy, rib XRT and currently on chemo. Followed at [place].
- Hold chemo agent acutely.
- Follow-up with [facility] after acute hospital stay.
Benign Hypertension
- Stable. Continue home medications with holding parameters.
DM-II
- Hold PO regimen acutely.
- Follow glucose and cover with SSI as needed.
Insomnia
- Trial of melatonin and Benadryl
Chronic Hyponatremia
- Consistent with prior values / baseline.
- Follow for changes during IVF support.
GILBERTO
- Continue CPAP at night and PRN.
- Titrate settings for comfort as patient does not recall home settings.
DVT Prophylaxis: SQ Lovenox
Code Status: Full
Total time spent to see the patient on the floor, examine the patient, review data and lab results, discuss treatment plan with patient, nursing staff around 50 minutes.
Physical Exam
General: No acute distress
HEENT: Normocephalic, Atraumatic, EOMI, MMM
Respiratory: Clear to Auscultation bilaterally
Cardiac: Normal S1/S2, Regular Rate and Rhythm
GI: Soft, Nontender, Nondistended, Normal Bowel Sounds
Extremities: No Clubbing, Cyanosis, or Edema
Neuro: Nonfocal/Grossly Intact
Psych: Calm, Cooperative
Derm: No Visible lesions
Anticipated Discharge: > 48 hours
Subjective/Interval History
-
Date of Service: November 01, 2024
Patient continues to feel weak, and has dysphagia. His biggest complaint is having continuous diarrhea overnight, making sleep difficult. No fever, no vomiting.
Objective Data
-
Labs:
Laboratory Results
11/01/24
05:54
WBC 5.8
Hgb 11.0 L
Hct 32.7 L
Plt Count 88 L
Sodium 136
Potassium 3.7
Chloride 103
Carbon Dioxide 26
BUN 15
Creatinine 1.0
Glucose 100 H
Calcium 8.3 L
Total Bilirubin 1.1
AST 53
ALT 168 H
Alkaline Phosphatase 148 H
Vital Signs:
Vital Signs
Temp Pulse Resp BP Pulse Ox
97.6 F 75 16 146/87 96
11/01/24 02:55 11/01/24 02:55 11/01/24 02:55 11/01/24 02:55 11/01/24 02:55
I&O
04/02/1711/01/24 11/02/24
06:59 06:59 06:59
Intake Total 525 / 650 2800 / 2800
Output Total 600 / 600 200 / 200
Balance -75 / 50 2600 / 2600
[2024-11-01] MEDS: NEUTRA-PHOS POWDER PACKET 250 MG PO ×4 (10:43→21:55)
--- NOTE | 2024-11-01 11:30 | PTOTSP ---
Videofluoroscopic swallow study
Mild oral stage, moderate pharyngeal dysphagia without aspiration though risk is elevated post swallow given pharyngeal residue. Etiology is likely MG and may be exacerbated by not receiving medications last night/this morning. See patient care
note for details.
Recommend:
1. IDDSI Level 4 Puree, Thin liquids
2. Medications 1 at a time w/ sips of liquid or in puree
3. Strategies: upright to 90 degrees, moisten foods well with sauces/gravies, small sips/bites, slow rate, multiple swallows (does this spontaneously), small frequent meals to prevent fatigue, reflux precautions
4. Dysphagia tx to ensure tolerance of diet given etiology (MG), use of compensations, and determine if/when diet advancement appropriate.
[2024-11-01 11:38] LABS: Glucose - Point of Care 137 mg/dl (70-99)
--- NOTE | 2024-11-01 12:57 | PN.CDI ---
CDI
- -
CDI:
Physician Documentation Request
Admit Date: 10/30/24 22:01
Dear Doctor Do,
Please review the following and provide your response in the progress notes.
Clinical Indicators:
The diagnosis of 11th right rib metastasis was included in the signed 10/30 CT Abd/Pelvis
- 10/30 CT Abd/pelvis 'Redemonstration of posterior right 11th rib metastasis, decreased from prior'
Please indicate in your progress notes if you are in agreement that the above diagnosis is valid for this patient:
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
____ - Other (please specify)
Use of terms such as suspected, likely, concern for, or probable are acceptable for a diagnosis that is being evaluated, monitored or treated as if it exists and can be coded in the inpatient setting, when documented at the time of discharge.
Thank you,
Carmen Jacob RN
CDI Specialist
Please use your independent medical judgment in providing your response.
[2024-11-01 16:23] LABS: Glucose - Point of Care 103 mg/dl (70-99)
[2024-11-01] MEDS: LEXAPRO 10 MG PO (17:03)
[2024-11-01] MEDS: LOVENOX 40 MG SC ×2 (17:04)
[2024-11-01] MEDS: MESTINON PO (17:09)
--- NOTE | 2024-11-01 17:10 | W.PN.NEURO.1 ---
Today's Communication / Plan
-
start IVIG tentatively 3 days
Mestinon decrease 30 TID
Neuro Assessment/Plan
Assessment
Myasthenia gravis, generalized, with exacerbation probably provoked by infection -
doing worse today
Plan
Start IVIG 30 g daily tentatively 3 days, premedicate tylenol/benadryl
spoke with patient side effects headache, cough, DVT - on lovenox ppx
continue prednisone 5 mg daily, and likely at discharge
decrease prednisone 30 mg TID
plan discussed with patient, family, and outpatient neurologist - Dr Emmett Oseguera at [facility]
Subjective/Objective
Subjective Data
Date of Service: November 01, 2024
last night developed diarrhea from mestinon; didn't take any today
Today he is short of breath, ok when sitting up in chair worse when laying down
Objective Data
Vital Signs
Temp Pulse Resp BP Pulse Ox
36.9 C 78 20 159/89 96
11/01/24 15:00 11/01/24 15:00 11/01/24 15:00 11/01/24 15:00 11/01/24 15:00
Lab Results
11/01/24 05:54
11/01/24 05:54
PT 16.0 Sec (11.4-14.6) H 10/30/24 22:57
INR 1.25 10/30/24 22:57
APTT 34.2 Sec (23.4-35.0) 10/30/24 22:57
Sodium 136 mmol/L (135-145) 11/01/24 05:54
Potassium 3.7 mmol/L (3.5-5.1) 11/01/24 05:54
BUN 15 mg/dl (9-20) 11/01/24 05:54
Glucose 100 mg/dl (70-99) H 11/01/24 05:54
Calcium 8.3 mg/dl (8.4-10.2) L 11/01/24 05:54
Phosphorus 1.9 mg/dl (2.5-4.5) L 11/01/24 05:54
Grw-X-Nuosrmgvbiv Pept 2770 pg/ml 10/30/24 22:57
Patient Allergies
aspirin Allergy (Verified 11/01/24 16:06)
Hives
naproxen Allergy (Verified 11/01/24 16:06)
urinary burning
Physical Exam
-
sitting up in chair
AAOx3, speech clear, language intact, speaking in full sentences w/o resp distress
VFF, EOMI, face symmetric
full strength b/l UE/LE
sensation intact to touch
DTRs symmetrically absent
--- NOTE | 2024-11-01 17:16 | CON.ID ---
Consultation
-
Date/Time Consultation Requested: 11/01/2024 1554
Date/Time Consultation Performed: 11/01/2024 1711
Requesting Provider: Dr. Hoover
Performing Provider: Dr. Ballard
Reason for Consultation: E. coli bacteremia
Chief Complaint / Past History
History of Present Illness
Amanda Flores is a 69-year-old man being evaluated in infectious ease consultation regarding E. coli bacteremia and diverticulitis. History is obtained from chart review, along with patient interview.
The patient has a significant past medical history of renal cell carcinoma (with left nephrectomy) and myasthenia gravis. He presented to [facility] on 10/30 after developing profound nausea, vomiting and diarrhea. He reports that he was in
his usual state of health until approximately 48 hours prior to presentation when he developed the acute onset of nausea and vomiting with subsequent development of diarrhea. Over that 48 hours he had had very little to eat, and his reported
concern for potential dehydration.
In the emergency room, CT imaging was performed which revealed diverticulitis. Blood cultures obtained at the time of admission are now positive for E. coli.
In further history, the patient had developed diplopia in late 2022 and was diagnosed with myasthenia gravis. During that evaluation and metastatic rib lesion was noted and he was found to have right renal cancer for which she underwent a right
nephrectomy, XRT and subsequent chemotherapy.
Currently denies fevers, but notes prior chills. He denies significant abdominal discomfort, but notes ongoing diarrhea. He notes his nausea has improved. He does feel weakness and some degree in relation to breathing at this time, but he has
been evaluated by Neurology.
Past History
Additional Past Medical History:
GERD
HTN
HLD
DM
Diverticulosis
Myasthenia gravis
Hx renal cell carcinoma
Additional Past Surgical History:
Left laminectomy (1987)
Right nephrectomy
Allergy History:
aspirin Allergy (Verified 11/01/24 16:06)
Hives
naproxen Allergy (Verified 11/01/24 16:06)
urinary burning
Medications Reviewed: Yes
Current Antibiotics:
Unasyn
Social History
Tobacco: Non-Smoker
Alcohol: Occasional
Drug: None
Personal:
Living: With Family
Employment: Retired
Family History
Family History: Not Pertinent
Review of Systems
Vital Signs
Temp Pulse Resp BP Pulse Ox
98.5 F 78 20 159/89 96
11/01/24 15:00 11/01/24 15:00 11/01/24 15:00 11/01/24 15:00 11/01/24 15:00
Physical Exam
Physical Exam
Constitutional: No Acute Distress, Well Developed, Comfortable and Toxic
Head: Normocephalic
Eyes: Pupils Equal, Pupils Round, No Conjunctival Hemorrhage and Sclera Anicteric
Oral: No Thrush and No Ulcers
Cardiovascular: Regular Rate and S1/S2; Negative S3/S4
Pulmonary: Clear and Other (Mildly labored.); Negative Wheezes or Rales
Gastrointestinal: Soft, Non Tender and Non Distended
Genito-Urinary: Negative Elena
Extremities: Edema (Trace); Negative Cyanosis or Erythema
Neurological: Awake and Alert
Psychological: Calm
.
Lab / Diagnostic Study Results
11/01/24 05:54
11/01/24 05:54
Abs Immat Gran (auto) 0.0 10^3/uL (0-0.05) 10/30/24 13:45
Absolute Neuts (auto) 8.7 10^3/uL (1.4-6.5) H 10/30/24 13:45
Absolute Lymphs (auto) 0.4 10^3/uL (1.2-3.4) L 10/30/24 13:45
Absolute Monos (auto) 0.4 10^3/uL (0.1-0.6) 10/30/24 13:45
Absolute Basos (auto) 0.0 10^3/uL (0-0.2) 10/30/24 13:45
Immature Gran % 0.3 % (0-0.5) 10/30/24 13:45
Neutrophils % 90.9 % (42.2-75.2) H 10/30/24 13:45
Lymphocytes % 4.0 % (20.5-51.1) L 10/30/24 13:45
Monocytes % 4.4 % (1.7-9.3) 10/30/24 13:45
Eosinophils % 0.2 % (0-6) 10/30/24 13:45
Basophils % 0.2 % (0-2) 10/30/24 13:45
PT 16.0 Sec (11.4-14.6) H 10/30/24 22:57
INR 1.25 10/30/24 22:57
Lactic Acid Cancelled 10/30/24 21:45
Ur Squamous Epith Cells 3-5 /LPF (Few) 10/30/24 15:21
Microbiology Results
Micro:
10/30/24 16:15 Salmonella/Shigella Culture - Preliminary
Feces/Stool Culture in Progress
Campylobacter Culture - Preliminary
Culture in Progress
Shiga Toxin Test - Pending
10/30/24 18:00 Blood Culture - Preliminary
Blood/Venous Escherichia coli
Gram Stain - Preliminary
10/30/24 18:00 Blood Culture - Preliminary
Blood/Venous No Growth in 24 hours- Final report to follow
10/30/24 16:15 C. difficile GDH Antigen & Toxins - Final
Feces/Stool Negative for toxigenic C.difficile
- Final
Negative for Norovirus GI and GII.
10/30/24 18:00 Influenza Types A & B (SEBASTIÁN) - Final
Nasal Swab Negative for Influenza A & B, NAAT
Negative results must be combined with clinical observations
and patient history.
Nucleic Acid Amplification test (NAAT)performed on the
[employer] platform.
Imaging:
10/30/2024 CT abdomen/pelvis with IV contrast: Mild acute uncomplicated diverticulitis of the distal descending/proximal sigmoid colon. Small right and trace left pleural effusions. Redemonstration of posterior right 11th rib metastasis, decreased
from prior exam.
Assessment / Plan
E. coli bacteremia
Acute diverticulitis
Normal white count with left shift
Transaminitis
GERD
HTN
HLD
DM
Diverticulosis
Myasthenia gravis
Hx renal cell carcinoma
Recommendations:
Continue with Unasyn for now.
Await further culture data to guide antimicrobial selection and potential de-escalation.
Follow white count and temperature curve.
Patient for IVIG infusion tonight.
Monitor respiratory status closely.
Care Review
Plan reviewed with: Physician (Hospitalist)
[2024-11-01] MEDS: BENADRYL 25 MG PO ×2 (18:14→21:55)
[2024-11-01] MEDS: TYLENOL 325 MG PO (18:14)
[2024-11-01] MEDS: APRESOLINE 10 MG IV (20:13)
[2024-11-01] MEDS: MELATONIN 10 MG PO (20:15)
--- NOTE | 2024-11-01 21:00 | TRANSFER ---
Pt transferred to IMU rm [id number] with all belongings via wheelchair. VSS prior to transfer. Report given to ALLEN Carr.
--- NOTE | 2024-11-01 21:49 | PTCARENOTE ---
Addendum entered by Lilly Sewell 11/01/24 21:54:
SaO2 97 on RA. Pt requests O2 for SOB. 2L placed for comfort. RT notified via TT
Original Note:
Rec'd pt from 4W RN. Pt c/o SOB, but arrived in wheelchair. Stand/pivot to bed without complication. Hygiene care performed and weight obtained. DIRECTOR OF ACCOUNTS RECEIVABLE contacted regarding outstanding CXR, changed order to portable d/t pt SOB. Pt c/o restless legs,
but otherwise denies additional symptoms at this time. Oriented to room and call triana system. Care ongoing.
[2024-11-01 21:54] LABS: Glucose - Point of Care 101 mg/dl (70-99)
[2024-11-01] MEDS: MESTINON 30 MG PO (21:55)
[2024-11-01] MEDS: GAMMAGARD 300 IV (21:57)
[2024-11-01] MEDS: TYLENOL 650 MG PO (22:16)
[2024-11-02] VITALS (29 sets, daily range): BP systolic 110–173; BP diastolic 60–100; BMI 29.1
[2024-11-02] MEDS: UNASYN IV ×4 (01:51→17:49)
--- NOTE | 2024-11-02 02:20 | PTCARENOTE ---
Unasyn hung late d/t IVIG hanging. Pharmacy recommended not to hand unasyn and IVIG at the same time.
[2024-11-02] MEDS: APRESOLINE 10 MG IV (04:26)
[2024-11-02 04:29] LABS: Hematocrit 32.5 % (39.0-52.0); Hemoglobin 10.9 g/dL (13.0-18.0); Mean Corp Hgb Conc. 33.5 g/dL (33.0-37.0); Mean Corpuscular Hgb 31.1 pg (27.0-31.0); Mean Corpuscular Volume 92.9 fL (80.0-94.0); Mean Platelet Volume 8.8 fL (7.4-10.4); Platelet Count 84 10^3/uL (130-400); Red Cell Dist. Width 15.8 % (11.5-14.5); White Blood Cell Count 4.1 10^3/uL (4.8-10.8)
[2024-11-02 04:54] LABS: ALT (SGPT) 156 U/L (0-50); AST (SGOT) 62 U/L (17-59); Albumin 3.4 g/dl (3.5-5.0); Alkaline Phosphatase 152 U/L (38-126); Blood Urea Nitrogen 15 mg/dl (9-20); Calcium 8.4 mg/dl (8.4-10.2); Carbon Dioxide 24 mmol/L (22-30); Chloride 104 mmol/L (98-107); Estimated Creatinine Clearance 79 ml/min; Glucose 107 mg/dl (70-99); Potassium 3.6 mmol/L (3.5-5.1); Sodium 137 mmol/L (135-145); Total Bilirubin 0.9 mg/dl (0.2-1.3); Total Protein 6.7 g/dl (6.3-8.2); eGFR > 60.00
[2024-11-02] MEDS: ZYLOPRIM 100 MG PO (07:57)
[2024-11-02] MEDS: NEUTRA-PHOS POWDER PACKET 250 MG PO ×4 (07:57→21:26)
[2024-11-02] MEDS: PROTONIX 40 MG PO (07:57)
[2024-11-02] MEDS: DELTASONE 5 MG PO (07:57)
[2024-11-02] MEDS: NORVASC 5 MG PO (07:57)
[2024-11-02] MEDS: MESTINON 30 MG PO ×3 (07:57→21:25)
[2024-11-02] MEDS: TYLENOL 650 MG PO (07:57)
[2024-11-02] MEDS: LEXAPRO 10 MG PO (07:57)
[2024-11-02] MEDS: COZAAR 100 MG PO (07:58)
[2024-11-02 07:59] LABS: Glucose - Point of Care 109 mg/dl (70-99)
[2024-11-02] MEDS: NOVOLOG FLEXPEN-LOW RESISTANCE SC ×3 (08:07→17:54)
--- NOTE | 2024-11-02 09:17 | W.PN.HOSP.TC ---
Today's Communication/Plan
-
see bold
Assessment / Plan
Assessment / Plan
HPI: 69y M with PMH significant for renal cell cancer and myasthenia who presents to ED complaining of GI symptoms since Thursday and worsening SOB.
Gastroenteritis
Possible Sigmoid Diverticulitis
E. coli bacteremia
- Symptoms sound more c/w gastroenteritis - likely viral.
- CT scan done in the ED today shows 'mild acute diverticulitis'.
- 1 out of 2 blood cultures positive for E. coli
- Appreciate ID input, continue IV Unasyn day 4, supportive care
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
Hypoxemic Respiratory Insufficiency
- New symptoms just in the past few weeks of swallow difficulty, ptosis, weakness.
- NIF in the ED is 50
- Appreciate neurology input, started on IVIG 11/01, continue D2
- Mestinon decreased to home dose of 30 mg 3 times daily, started on prednisone 5 mg daily upon this admission - neuro rec to continue upon dc
- Now on 2L, was on 6L
- PT/OT rec HH
Dysphagia
- SPL recommends pur�ed diet, VSE completed 11/01
Abnormal LFTs
- ? secondary to acute viral process +/- chemo agent, etc.
- CT and US done in the ED show possible fatty infiltration and otherwise no specific hepatic abnormality.
- Improving, monitor
Renal Cell Cancer
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
- S/p R nephrectomy, rib XRT and currently on chemo. Followed at [place].
- Hold chemo agent acutely.
- Follow-up with [facility] after acute hospital stay.
Benign Hypertension
- Stable. Continue home medications with holding parameters.
DM-II
- Hold PO regimen acutely.
- Follow glucose and cover with SSI as needed.
Insomnia
- Trial of melatonin and Benadryl
Chronic Hyponatremia
- Consistent with prior values / baseline.
- Follow for changes during IVF support.
GILBERTO
- Continue CPAP at night and PRN.
- Titrate settings for comfort as patient does not recall home settings.
DVT Prophylaxis: SQ Lovenox
Code Status: Full
Total time spent to see the patient on the floor, examine the patient, review data and lab results, discuss treatment plan with patient, nursing staff around 51 minutes.
Physical Exam
General: No acute distress
HEENT: Normocephalic, Atraumatic, EOMI, MMM
Respiratory: Clear to Auscultation bilaterally
Cardiac: Normal S1/S2, Regular Rate and Rhythm
GI: Soft, Nontender, Nondistended, Normal Bowel Sounds
Extremities: No Clubbing, Cyanosis, or Edema
Neuro: Nonfocal/Grossly Intact
Psych: Calm, Cooperative
Anticipated Discharge: > 48 hours
Subjective/Interval History
-
Date of Service: November 02, 2024
Patient reports improvement in his diarrhea. Dysphagia improved. Shortness of breath improved. No fever, no vomiting.
Objective Data
-
Labs:
Laboratory Results
11/02/24
04:13
WBC 4.1 L
Hgb 10.9 L
Hct 32.5 L
Plt Count 84 L
Sodium 137
Potassium 3.6
Chloride 104
Carbon Dioxide 24
BUN 15
Creatinine 0.9
Glucose 107 H
Calcium 8.4
Total Bilirubin 0.9
AST 62 H
ALT 156 H
Alkaline Phosphatase 152 H
Vital Signs:
Vital Signs
Temp Pulse Resp BP Pulse Ox
97.4 F 71 18 161/91 98
11/02/24 07:42 11/02/24 07:57 11/02/24 06:00 11/02/24 07:57 11/02/24 06:00
I&O
11/01/24 11/02/2411/03/25
06:59 06:59 06:59
Intake Total 2800 / 2800 1740 / 1740
Output Total 200 / 200
Balance 2600 / 2600 1740 / 1740
--- NOTE | 2024-11-02 11:01 | W.PN.ID1 ---
Date of Service
Date of Service: November 02, 2024
Today's Communication
Continue antibiotics.
Assessment / Plan
E. coli bacteremia
Acute diverticulitis
Normal white count with left shift
Transaminitis
GERD
HTN
HLD
DM
Diverticulosis
Myasthenia gravis
Hx renal cell carcinoma
Recommendations:
Continue with Unasyn for today.
Follow white count and temperature curve.
Given myasthenia gravis, monitor respiratory status closely.
����������������������������������������������������������
Chief Complaint
-: Bacteremia and Other (Diverticulitis)
Subjective / Review of Systems
Patient seen and examined.
Review of Systems: No Fever
Vital Signs / Physical Exam
Vital Signs
Vital Signs
Temp Pulse Resp BP Pulse Ox
97.4 F 71 18 161/91 98
11/02/24 07:42 11/02/24 07:57 11/02/24 06:00 11/02/24 07:57 11/02/24 06:00
Physical Exam
Constitutional: Comfortable and Non-toxic
Cardiovascular: S1/S2; Negative S3/S4
Pulmonary: Non Labored
Gastrointestinal: Soft, Non Tender, Non Distended and Normal Bowel Sounds
Skin: Negative Rash or Jaundice
Psychological: Calm
Objective Data
Lab Data
Lab Results
11/02/24 04:13
11/02/24 04:13
PT 16.0 Sec (11.4-14.6) H 10/30/24 22:57
INR 1.25 10/30/24 22:57
APTT 34.2 Sec (23.4-35.0) 10/30/24 22:57
Estimated Creat Clear 79 ml/min 11/02/24 04:13
Lactic Acid Cancelled 10/30/24 21:45
Total Bilirubin 0.9 mg/dl (0.2-1.3) 11/02/24 04:13
AST 62 U/L (17-59) H 11/02/24 04:13
ALT 156 U/L (0-50) H 11/02/24 04:13
Alkaline Phosphatase 152 U/L (38-126) H 11/02/24 04:13
Most recent labs reviewed.
Micro Results:
10/30/24 18:00 Blood Culture - Preliminary
Blood/Venous Escherichia coli
Gram Stain - Preliminary
10/30/24 18:00 Blood Culture - Preliminary
Blood/Venous No Growth in 48 hours- Final report to follow
10/30/24 16:15 Salmonella/Shigella Culture - Preliminary
Feces/Stool Culture in Progress
Campylobacter Culture - Preliminary
Culture in Progress
Shiga Toxin Test - Pending
10/30/24 16:15 C. difficile GDH Antigen & Toxins - Final
Feces/Stool Negative for toxigenic C.difficile
- Final
Negative for Norovirus GI and GII.
10/30/24 18:00 Influenza Types A & B (SEBASTIÁN) - Final
Nasal Swab Negative for Influenza A & B, NAAT
Negative results must be combined with clinical observations
and patient history.
Nucleic Acid Amplification test (NAAT)performed on the
[employer] platform.
Imaging:
10/30/2024 CT abdomen/pelvis with IV contrast: Mild acute uncomplicated diverticulitis of the distal descending/proximal sigmoid colon. Small right and trace left pleural effusions. Redemonstration of posterior right 11th rib metastasis, decreased
from prior exam.
--- NOTE | 2024-11-02 11:19 | PTOTSP ---
Speech Pathology
Dysphagia Tx
Tolerating pureed diet and thin liquids with no reported difficulty or overt s/s of aspiraiton.Reviewed safe swallowing strategies from E this date (i.e. upright to 90 degrees, moisten foods well with sauces/gravies, small sips/bites, slow rate,
multiple swallows (does this spontaneously), small frequent meals to prevent fatigue, reflux precautions) with 50% teach back that improved with verbal and written cues. Recommend continuation of current POC with assessment for possible diet
upgrade as as status improves.
Impression copied from [facility] on 11/01 -
'Mild oral stage, moderate pharyngeal dysphagia without aspiration though risk is elevated post swallow given pharyngeal residue. Etiology is likely MG and may be exacerbated by not receiving medications last night/this morning. See patient care
note for details.'
Continue with recommendations:
1. IDDSI Level 4 Puree, Thin liquids
2. Medications 1 at a time w/ sips of liquid or in puree
3. Strategies: upright to 90 degrees, moisten foods well with sauces/gravies, small sips/bites, slow rate, multiple swallows (does this spontaneously), small frequent meals to prevent fatigue, reflux precautions
4. Dysphagia tx to ensure tolerance of diet given etiology (MG), use of compensations, and determine if/when diet advancement appropriate.
[2024-11-02 12:49] LABS: Glucose - Point of Care 126 mg/dl (70-99)
--- NOTE | 2024-11-02 14:40 | W.PN.NEURO.1 ---
Today's Communication / Plan
-
IVIG tentatively 3 doses, though potentially tomorrow after 2 doses if he is feeling better
Neuro Assessment/Plan
Assessment
Myasthenia gravis, generalized, with exacerbation probably provoked by infection -
doing better today
MIP 50, Vital capacity 1.8-->1.6 L, not a clinically significant difference
Plan
continue IVIG 30 g daily ~6pm tentatively 3 days, premedicate tylenol/benadryl
spoke with patient side effects headache, cough, DVT - on lovenox ppx
continue prednisone 5 mg daily, and likely at discharge
continue prednisone 30 mg TID
plan discussed with patient, family, and outpatient neurologist - Dr Emmett Oseguera at [facility]
Subjective/Objective
Subjective Data
Date of Service: November 02, 2024
feels better after 1st dose of IVIG
headache 4/10 after IVIG which he feels is tolerable
Objective Data
Vital Signs
Temp Pulse Resp BP Pulse Ox
36.3 C 71 18 161/91 93
11/02/24 11:10 11/02/24 07:57 11/02/24 06:00 11/02/24 07:57 11/02/24 13:22
Lab Results
11/02/24 04:13
11/02/24 04:13
PT 16.0 Sec (11.4-14.6) H 10/30/24 22:57
INR 1.25 10/30/24 22:57
APTT 34.2 Sec (23.4-35.0) 10/30/24 22:57
Sodium 137 mmol/L (135-145) 11/02/24 04:13
Potassium 3.6 mmol/L (3.5-5.1) 11/02/24 04:13
BUN 15 mg/dl (9-20) 11/02/24 04:13
Glucose 107 mg/dl (70-99) H 11/02/24 04:13
Calcium 8.4 mg/dl (8.4-10.2) 11/02/24 04:13
Phosphorus 1.9 mg/dl (2.5-4.5) L 11/01/24 05:54
Ohj-V-Ssoxwluftmb Pept 2770 pg/ml 10/30/24 22:57
Patient Allergies
aspirin Allergy (Verified 11/01/24 16:06)
Hives
naproxen Allergy (Verified 11/01/24 16:06)
urinary burning
[2024-11-02 15:21] LABS: Phosphorus 3.1 mg/dl (2.5-4.5)
--- NOTE | 2024-11-02 17:16 | CM ---
Patient with Hx RCC s/p nephrectomy & chemo on radiation Tx with Dx Gastroenteritis, Myasthenia Gravis, dysphagia. Room air. Receiving IV Abx, IVIG. PT & OT recommend HH.
As per prior CM notes patient prefers outpatietn PT/OT and already has a script.
CM continuing to follow.
Plan home with outpatient PT/OT.
[2024-11-02 17:23] LABS: Glucose - Point of Care 95 mg/dl (70-99)
[2024-11-02] MEDS: BENADRYL 25 MG PO (17:50)
[2024-11-02] MEDS: TYLENOL 325 MG PO (17:50)
[2024-11-02] MEDS: LOVENOX 40 MG SC (17:51)
[2024-11-02] MEDS: GAMMAGARD 300 IV (18:32)
[2024-11-02] MEDS: BENADRYL 50 MG PO (21:26)
[2024-11-02] MEDS: MELATONIN 10 MG PO (21:26)
[2024-11-02 23:28] LABS: Glucose - Point of Care 97 mg/dl (70-99)
[2024-11-03] VITALS (36 sets, daily range): BP systolic 116–167; BP diastolic 60–105; PULSE 83; O2SAT 98; BMI 29.2
[2024-11-03] MEDS: UNASYN IV ×4 (00:29→17:08)
[2024-11-03 05:53] LABS: Hematocrit 30.5 % (39.0-52.0); Hemoglobin 10.3 g/dL (13.0-18.0); Mean Corp Hgb Conc. 33.8 g/dL (33.0-37.0); Mean Corpuscular Volume 91.9 fL (80.0-94.0); Platelet Count 62 10^3/uL (130-400); Red Blood Cell Count 3.32 10^6/uL (4.70-6.10); Red Cell Dist. Width 15.8 % (11.5-14.5); White Blood Cell Count 3.4 10^3/uL (4.8-10.8)
[2024-11-03 06:01] LABS: ALT (SGPT) 139 U/L (0-50); AST (SGOT) 58 U/L (17-59); Albumin 3.1 g/dl (3.5-5.0); Alkaline Phosphatase 140 U/L (38-126); Blood Urea Nitrogen 12 mg/dl (9-20); Calcium 8.3 mg/dl (8.4-10.2); Carbon Dioxide 24 mmol/L (22-30); Chloride 106 mmol/L (98-107); Estimated Creatinine Clearance 79 ml/min; Glucose 91 mg/dl (70-99); Phosphorus 3.3 mg/dl (2.5-4.5); Potassium 3.6 mmol/L (3.5-5.1); Sodium 137 mmol/L (135-145); Total Bilirubin 0.7 mg/dl (0.2-1.3); Total Protein 6.7 g/dl (6.3-8.2); eGFR > 60.00
[2024-11-03] MEDS: APRESOLINE 10 MG IV ×2 (06:05→12:28)
[2024-11-03 08:24] LABS: Glucose - Point of Care 109 mg/dl (70-99)
[2024-11-03] MEDS: NOVOLOG FLEXPEN-LOW RESISTANCE SC ×2 (09:38→12:27)
[2024-11-03] MEDS: COZAAR 100 MG PO (09:39)
[2024-11-03] MEDS: DELTASONE 5 MG PO (09:40)
[2024-11-03] MEDS: LEXAPRO 10 MG PO (09:40)
[2024-11-03] MEDS: NORVASC 5 MG PO (09:41)
[2024-11-03] MEDS: MESTINON 30 MG PO ×3 (09:41→20:04)
[2024-11-03] MEDS: PROTONIX 40 MG PO (09:42)
[2024-11-03] MEDS: NEUTRA-PHOS POWDER PACKET 250 MG PO ×2 (09:42→12:28)
[2024-11-03] MEDS: ZYLOPRIM 100 MG PO (09:42)
--- NOTE | 2024-11-03 11:29 | PTCARENOTE ---
Patient out of bed to chair, denying pain when asked. In good spirits stating that he feels much better. Myasthenia gravis symptoms today are mild eye droop of right eye and feels of shortness of breath. Patients pulse ox has been >97% on room air
at rest and with ambulation. IVIG infusion schedules for 6pm.
[2024-11-03 12:30] LABS: Glucose - Point of Care 116 mg/dl (70-99)
--- NOTE | 2024-11-03 12:58 | PTCARENOTE ---
Patient required PRN doses of IV Hydralazine today. Notified Dr. Collado
[2024-11-03] MEDS: COREG 25 MG PO ×2 (13:50→20:05)
[2024-11-03] MEDS: LIPITOR 10 MG PO (13:50)
[2024-11-03] MEDS: LASIX 40 MG IV (13:51)
[2024-11-03] MEDS: FLOMAX PO (13:51)
[2024-11-03] MEDS: FLOMAX 0.4 MG PO (13:59)
--- NOTE | 2024-11-03 14:44 | PTCARENOTE ---
Patients abdomen is distended, asymmetrical. The left side appears larger, patient stating that he has a history of hernias. Patients bowel sounds are hyperactive, patient is denying nausea or vomiting when asked. Consuming majority of meals.
Discussed abdomen with Dr. Hoover.
--- NOTE | 2024-11-03 15:30 | W.PN.ID1 ---
Date of Service
Date of Service: November 03, 2024
Today's Communication
Continue antibiotics. See below�
Assessment / Plan
E. coli bacteremia
Acute diverticulitis sigmoid colon
Normal white count with left shift
Transaminitis
- improving.
GERD
HTN
HLD
DM
Diverticulosis
Myasthenia gravis
Hx renal cell carcinoma
Recommendations:
Continue with Unasyn (d#5) for today but given clinical stability, will transition to Augmentin tomorrow, to complete a 10 - 14 day course.
Follow white count and temperature curve.
Given myasthenia gravis, monitor respiratory status closely.
����������������������������������������������������������
Chief Complaint
-: Bacteremia and Other (Diverticulitis)
Subjective / Review of Systems
Patient seen and examined. Overall feels well. Breathing is comfortable.
Review of Systems: No Fever and No Chills
Vital Signs / Physical Exam
Vital Signs
Vital Signs
Temp Pulse Resp BP Pulse Ox
97.8 F 77 17 133/93 93
11/03/24 11:02 11/03/24 15:00 11/02/24 13:00 11/03/24 15:00 11/03/24 15:00
Physical Exam
Constitutional: Comfortable and Non-toxic
Cardiovascular: S1/S2; Negative S3/S4
Pulmonary: Non Labored
Gastrointestinal: Soft, Non Tender, Non Distended and Normal Bowel Sounds
Extremities: Edema (trace - 1+); Negative Cyanosis or Erythema
Skin: Negative Rash or Jaundice
Psychological: Calm
Objective Data
Lab Data
Lab Results
11/03/24 05:25
11/03/24 05:25
PT 16.0 Sec (11.4-14.6) H 10/30/24 22:57
INR 1.25 10/30/24 22:57
APTT 34.2 Sec (23.4-35.0) 10/30/24 22:57
Estimated Creat Clear 79 ml/min 11/03/24 05:25
Lactic Acid Cancelled 10/30/24 21:45
Total Bilirubin 0.7 mg/dl (0.2-1.3) 11/03/24 05:25
AST 58 U/L (17-59) 11/03/24 05:25
ALT 139 U/L (0-50) H 11/03/24 05:25
Alkaline Phosphatase 140 U/L (38-126) H 11/03/24 05:25
Most recent labs reviewed.
Micro Results:
10/30/24 16:15 Salmonella/Shigella Culture - Final
Feces/Stool No Salmonella, Shigella, Aeromonas or Plesiomonas species
isolated.
Campylobacter Culture - Final
No Campylobacter species isolated.
Shiga Toxin Test - Final
No E. coli Shiga Toxin 1 or 2 detected.
10/30/24 18:00 Blood Culture - Preliminary
Blood/Venous Escherichia coli
Gram Stain - Preliminary
10/30/24 18:00 Blood Culture - Preliminary
Blood/Venous No Growth in 72 hours- Final report to follow
10/30/24 16:15 C. difficile GDH Antigen & Toxins - Final
Feces/Stool Negative for toxigenic C.difficile
- Final
Negative for Norovirus GI and GII.
10/30/24 18:00 Influenza Types A & B (SEBASTIÁN) - Final
Nasal Swab Negative for Influenza A & B, NAAT
Negative results must be combined with clinical observations
and patient history.
Nucleic Acid Amplification test (NAAT)performed on the
[employer] platform.
Imaging:
10/30/2024 CT abdomen/pelvis with IV contrast: Mild acute uncomplicated diverticulitis of the distal descending/proximal sigmoid colon. Small right and trace left pleural effusions. Redemonstration of posterior right 11th rib metastasis, decreased
from prior exam.
[2024-11-03 17:11] LABS: Glucose - Point of Care 171 mg/dl (70-99)
[2024-11-03] MEDS: LOVENOX 40 MG SC (17:12)
[2024-11-03] MEDS: NOVOLOG FLEXPEN-LOW RESISTANCE 1 UNITS SC (17:21)
--- NOTE | 2024-11-03 17:51 | W.PN.HOSP.TC ---
Today's Communication/Plan
-
see bold
Assessment / Plan
Assessment / Plan
HPI: 69y M with PMH significant for renal cell cancer and myasthenia who presents to ED complaining of GI symptoms since Thursday and worsening SOB.
Gastroenteritis
Possible Sigmoid Diverticulitis
E. coli bacteremia
- Symptoms sound more c/w gastroenteritis - likely viral.
- CT scan done in the ED today shows 'mild acute diverticulitis'.
- 1 out of 2 blood cultures positive for E. coli
- Appreciate ID input, continue IV Unasyn day 5, supportive care
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
Hypoxemic Respiratory Insufficiency
- New symptoms just in the past few weeks of swallow difficulty, ptosis, weakness.
- NIF in the ED is 50
- Appreciate neurology input, started on IVIG 11/01, continue
- Mestinon decreased to home dose of 30 mg 3 times daily, started on prednisone 5 mg daily upon this admission - neuro rec to continue upon dc
- Now on 2L, was on 6L
- PT/OT rec HH
Dysphagia
- SPL recommends pur�ed diet, VSE completed 11/01
Abnormal LFTs
- ? secondary to acute viral process +/- chemo agent, etc.
- CT and US done in the ED show possible fatty infiltration and otherwise no specific hepatic abnormality.
- Improving, monitor
Essential hypertension
- Resume Coreg 25 mg twice a day, continue amlodipine 5 mg daily, losartan 100 mg daily
Lower extremity edema
Abdominal distention
-From the IV fluids he received, give Lasix 40 mg IV x 1
Renal Cell Cancer
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
- S/p R nephrectomy, rib XRT and currently on chemo. Followed at [place].
- Hold chemo agent acutely.
- Follow-up with [facility] after acute hospital stay.
Benign Hypertension
- Stable. Continue home medications with holding parameters.
DM-II
- Hold PO regimen acutely.
- SSI as needed.
Insomnia
- Trial of melatonin and Benadryl
Chronic Hyponatremia
- Chronic, monitor
GILBERTO
- Continue CPAP at night and PRN.
- Titrate settings for comfort as patient does not recall home settings.
DVT Prophylaxis: SQ Lovenox
Code Status: Full
Total time spent to see the patient on the floor, examine the patient, review data and lab results, discuss treatment plan with patient, nursing staff around 50 minutes.
Physical Exam
General: No acute distress
HEENT: Normocephalic, Atraumatic, EOMI, MMM
Respiratory: Clear to Auscultation bilaterally
Cardiac: Normal S1/S2, Regular Rate and Rhythm
GI: Soft, Nontender, Distended, Normal Bowel Sounds
Extremities: No Clubbing, Cyanosis
+Bilateral lower extremity edema noted
Neuro: Nonfocal/Grossly Intact
Psych: Calm, Cooperative
Anticipated Discharge: Within 24 hours
Subjective/Interval History
-
Date of Service: November 03, 2024
Patient reports diarrhea improved. Weakness and dysphagia resolved. He complains of lower extremity edema and abdominal distention. No fever, no vomiting.
Objective Data
-
Labs:
Laboratory Results
11/03/24
05:25
WBC 3.4 L
Hgb 10.3 L
Hct 30.5 L
Plt Count 62 L D
Sodium 137
Potassium 3.6
Chloride 106
Carbon Dioxide 24
BUN 12
Creatinine 0.9
Glucose 91
Calcium 8.3 L
Total Bilirubin 0.7
AST 58
ALT 139 H
Alkaline Phosphatase 140 H
Vital Signs:
Vital Signs
Temp Pulse Resp BP Pulse Ox
97.8 F 80 17 133/90 95
11/03/24 11:02 11/03/24 17:00 11/02/24 13:00 11/03/24 17:00 11/03/24 17:00
I&O
11/02/24 11/03/24 11/04/24
06:59 06:59 06:59
Intake Total 1740 / 1740 600 / 600 1560 / 1560
Output Total 1375 / 1375
Balance 1740 / 1740 600 / 600 185 / 185
[2024-11-03] MEDS: BENADRYL 25 MG PO (17:54)
[2024-11-03] MEDS: TYLENOL 325 MG PO (17:54)
[2024-11-03] MEDS: GAMMAGARD 300 IV (17:54)
[2024-11-03] MEDS: BENADRYL 50 MG PO (20:03)
[2024-11-03] MEDS: MELATONIN 10 MG PO (20:03)
[2024-11-03 22:16] LABS: Glucose - Point of Care 105 mg/dl (70-99)
--- NOTE | 2024-11-03 23:21 | PTCARENOTE ---
received patient from previous RN. Patient AAOx3. NSr on monitor. Home cpap overnight. patient having loose stools. Patient walking to bathroom without any issues. Patient resting in bed with call triana in reach.
[2024-11-04] VITALS (17 sets, daily range): BP systolic 116–164; BP diastolic 66–98; PULSE 63; O2SAT 96; BMI 28.9
[2024-11-04] MEDS: OCEAN, SALINE MIST 2 SPRAYS NASAL (05:49)
[2024-11-04 08:26] LABS: Glucose - Point of Care 94 mg/dl (70-99)
[2024-11-04] MEDS: NOVOLOG FLEXPEN-LOW RESISTANCE SC ×2 (08:31→12:37)
[2024-11-04] MEDS: AUGMENTIN 875 MG/125 MG 1 TABLET PO (08:51)
[2024-11-04] MEDS: FLOMAX 0.4 MG PO (08:51)
[2024-11-04] MEDS: LEXAPRO 10 MG PO (08:51)
[2024-11-04] MEDS: ZYLOPRIM 100 MG PO (08:51)
[2024-11-04] MEDS: MESTINON 30 MG PO (08:51)
[2024-11-04] MEDS: LIPITOR 10 MG PO (08:51)
[2024-11-04] MEDS: PROTONIX 40 MG PO (08:51)
[2024-11-04] MEDS: DELTASONE 5 MG PO (08:51)
[2024-11-04] MEDS: COZAAR 100 MG PO (08:53)
[2024-11-04] MEDS: COREG 25 MG PO (08:53)
[2024-11-04] MEDS: NORVASC 5 MG PO (08:53)
--- NOTE | 2024-11-04 08:53 | W.PN.HOSP.TC ---
Today's Communication/Plan
-
Discharge today
Assessment / Plan
Assessment / Plan
HPI: 69y M with PMH significant for renal cell cancer and myasthenia who presents to ED complaining of GI symptoms since Thursday and worsening SOB.
Gastroenteritis
Possible Sigmoid Diverticulitis
E. coli bacteremia
- Symptoms sound more c/w gastroenteritis - likely viral.
- CT scan done in the ED today shows 'mild acute diverticulitis'.
- 1 out of 2 blood cultures positive for E. coli
- Appreciate ID input, status post IV Unasyn, medically stable for discharge on Augmentin to complete a 10-day course through 11/08/2024
- Follow-up with PCP 1 week
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
Hypoxemic Respiratory Insufficiency
- New symptoms just in the past few weeks of swallow difficulty, ptosis, weakness.
- NIF in the ED is 50
- Appreciate neurology input, status post 3 days of IVIG
- Mestinon decreased to home dose of 30 mg 3 times daily, started on prednisone 5 mg daily upon this admission - neuro rec to continue upon dc
- Now on RA, was on 6L
- PT/OT rec HH
- Cleared by neurology for discharge, follow-up with usual outpatient neurologist as soon as possible
Dysphagia
- SPL recommends pur�ed diet, VSE completed 11/01
- Upgraded to soft/bite-size diet 11/04
Abnormal LFTs
- ? secondary to acute viral process +/- chemo agent, etc.
- CT and US done in the ED show possible fatty infiltration and otherwise no specific hepatic abnormality.
- Improving, monitor
Essential hypertension
- Resumed Coreg 25 mg twice a day, continue amlodipine 5 mg daily, losartan 100 mg daily
Lower extremity edema
Abdominal distention
-From the IV fluids he received, give Lasix 40 mg IV x 1 on 11/03
Renal Cell Cancer
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
- S/p R nephrectomy, rib XRT and currently on chemo. Followed at [place].
- Hold chemo agent acutely.
- Follow-up with [facility] after acute hospital stay.
Benign Hypertension
- Stable. Continue home medications with holding parameters.
DM-II
- Hold PO regimen acutely.
- SSI as needed.
Insomnia
- Trial of melatonin and Benadryl
Chronic Hyponatremia
- Chronic, monitor
GILBERTO
- Continue CPAP at night and PRN.
- Titrate settings for comfort as patient does not recall home settings.
DVT Prophylaxis: SQ Lovenox
Code Status: Full
Physical Exam
General: No acute distress
HEENT: Normocephalic, Atraumatic, EOMI, MMM
Respiratory: Clear to Auscultation bilaterally
Cardiac: Normal S1/S2, Regular Rate and Rhythm
GI: Soft, Nontender, Distended, Normal Bowel Sounds
Extremities: No Clubbing, Cyanosis
+Bilateral lower extremity edema noted
Neuro: Nonfocal/Grossly Intact
Psych: Calm, Cooperative
Anticipated Discharge: Today
Subjective/Interval History
-
Date of Service: November 04, 2024
Patient's weakness has completely resolved. Shortness of breath resolved. Dysphagia resolved. Continues to have diarrhea, improved from prior. No fever, no vomiting.
Objective Data
-
Vital Signs:
Vital Signs
Temp Pulse Resp BP Pulse Ox
97.6 F 68 17 148/83 97
11/04/24 07:15 11/04/24 05:34 11/02/24 13:00 11/04/24 05:34 11/04/24 05:31
I&O
11/03/24 11/04/24 11/05/24
06:59 06:59 06:59
Intake Total 600 / 600 0 / 2040
Output Total 3525 / 3525
Balance 600 / 600 -1485 / -1485
--- NOTE | 2024-11-04 11:07 | W.PN.NEURO.1 ---
Today's Communication / Plan
-
continue prednisone 5 mg daily and Mestinon 30 mg TID on discharge
Neuro Assessment/Plan
Assessment
Myasthenia gravis, generalized, with exacerbation probably provoked by infection -
doing better today
MIP 50, Vital capacity 1.8-->1.6 L, not a clinically significant difference
Plan
continue prednisone 5 mg daily and Mestinon 30 mg TID on discharge
plan discussed with patient, family, and outpatient neurologist - Dr Emmett Oseguera at [facility] on 11/01
Subjective/Objective
Subjective Data
Date of Service: November 04, 2024
feeling stronger and ready to go home. completed 3 days of IVIG
Objective Data
Vital Signs
Temp Pulse Resp BP Pulse Ox
36.4 C 73 17 143/81 97
11/04/24 07:15 11/04/24 08:53 11/02/24 13:00 11/04/24 08:53 11/04/24 05:31
Lab Results
11/03/24 05:25
PT 16.0 Sec (11.4-14.6) H 10/30/24 22:57
INR 1.25 10/30/24 22:57
APTT 34.2 Sec (23.4-35.0) 10/30/24 22:57
Sodium 137 mmol/L (135-145) 11/03/24 05:25
Potassium 3.6 mmol/L (3.5-5.1) 11/03/24 05:25
BUN 12 mg/dl (9-20) 11/03/24 05:25
Glucose 91 mg/dl (70-99) 11/03/24 05:25
Calcium 8.3 mg/dl (8.4-10.2) L 11/03/24 05:25
Phosphorus 3.3 mg/dl (2.5-4.5) 11/03/24 05:25
Hqf-L-Tsiggxuiodc Pept 2770 pg/ml 10/30/24 22:57
Patient Allergies
aspirin Allergy (Verified 11/01/24 16:06)
Hives
naproxen Allergy (Verified 11/01/24 16:06)
urinary burning
[2024-11-04 12:26] LABS: Blood Urea Nitrogen 14 mg/dl (9-20); Calcium 8.6 mg/dl (8.4-10.2); Carbon Dioxide 24 mmol/L (22-30); Chloride 100 mmol/L (98-107); Estimated Creatinine Clearance 71 ml/min; Glucose 108 mg/dl (70-99); Magnesium 2.2 mg/dl (1.6-2.3); Sodium 132 mmol/L (135-145); eGFR > 60.00
--- NOTE | 2024-11-04 12:26 | W.PN.ID1 ---
Date of Service
Date of Service: November 04, 2024
Today's Communication
Transition to Augmentin, to complete a 10 day course. 10/30-11/08
Note low dose prednisone 5 mg PO qday
Note that penicillins are generally tolerated by patients with MG
Appreciate neurology input
Follow up with neurology, PCP and oncology
Assessment / Plan
E. coli bacteremia
Acute diverticulitis sigmoid colon
Pancytopenia
Transaminitis
- improving.
GERD
HTN
HLD
DM
Diverticulosis
Myasthenia gravis
Hx renal cell carcinoma - chemotherapy on hold while undergoing treatment for infection
Recommendations:
Transition to Augmentin, to complete a 10 day course. 10/30-11/08
Note low dose prednisone 5 mg PO qday
Note that penicillins are generally tolerated by patients with MG
Appreciate neurology input
Follow up with neurology, PCP and oncology
����������������������������������������������������������
Chief Complaint
-: Bacteremia and Other (Diverticulitis)
Subjective / Review of Systems
afebrile
bp stable
reports streaky hemoptysis today - no shelby hemoptysis
no flank pain
some awareness of the stent, particularly with urination
Vital Signs / Physical Exam
Vital Signs
Vital Signs
Temp Pulse Resp BP Pulse Ox
98.1 F 73 17 143/81 95
11/04/24 11:41 11/04/24 08:53 11/02/24 13:00 11/04/24 08:53 11/04/24 11:41
Physical Exam
Constitutional: No Acute Distress and Chronically Ill
Cardiovascular: Regular Rate and S1/S2; Negative Murmur or Rub
Pulmonary: Clear and Symmetric; Negative Wheezes or Rales
Gastrointestinal: Soft, Non Tender, Non Distended and Normal Bowel Sounds
Skin: Warm and Dry; Negative Rash or Jaundice
Objective Data
Lab Data
Lab Results
11/03/24 05:25
11/04/24 11:52
PT 16.0 Sec (11.4-14.6) H 10/30/24 22:57
INR 1.25 10/30/24 22:57
APTT 34.2 Sec (23.4-35.0) 10/30/24 22:57
Estimated Creat Clear 71 ml/min 11/04/24 11:52
Lactic Acid Cancelled 10/30/24 21:45
Total Bilirubin 0.7 mg/dl (0.2-1.3) 11/03/24 05:25
AST 58 U/L (17-59) 11/03/24 05:25
ALT 139 U/L (0-50) H 11/03/24 05:25
Alkaline Phosphatase 140 U/L (38-126) H 11/03/24 05:25
Most recent labs reviewed.
Micro Results:
10/30/24 18:00 Blood Culture - Preliminary
Blood/Venous No Growth in 4 days- Final report to follow
10/30/24 16:15 Salmonella/Shigella Culture - Final
Feces/Stool No Salmonella, Shigella, Aeromonas or Plesiomonas species
isolated.
Campylobacter Culture - Final
No Campylobacter species isolated.
Shiga Toxin Test - Final
No E. coli Shiga Toxin 1 or 2 detected.
10/30/24 18:00 Blood Culture - Preliminary
Blood/Venous Escherichia coli
Gram Stain - Preliminary
10/30/24 16:15 C. difficile GDH Antigen & Toxins - Final
Feces/Stool Negative for toxigenic C.difficile
- Final
Negative for Norovirus GI and GII.
10/30/24 18:00 Influenza Types A & B (SEBASTIÁN) - Final
Nasal Swab Negative for Influenza A & B, NAAT
Negative results must be combined with clinical observations
and patient history.
Nucleic Acid Amplification test (NAAT)performed on the
[employer] platform.
Imaging:
10/30/2024 CT abdomen/pelvis with IV contrast: Mild acute uncomplicated diverticulitis of the distal descending/proximal sigmoid colon. Small right and trace left pleural effusions. Redemonstration of posterior right 11th rib metastasis, decreased
from prior exam.
--- NOTE | 2024-11-04 12:26 | PTOTSP ---
pt has met all acute OT goals at this time. pt demonstrates ability to complete simple ADLs, functional transfers, ambulation without assistance. no further acute OT needs identified, will sign off.
[2024-11-04 12:35] LABS: Glucose - Point of Care 101 mg/dl (70-99)
--- NOTE | 2024-11-04 14:26 | PTOTSP ---
SPEECH THERAPY SWALLOW THERAPY FOLLOW UP:
Patient exhibits clinical signs of mild oropharyngeal dysphagia. Appears to be tolerating current diet IDDSI Level 4 Puree/thin liquids without difficulty. RN and patient reporting patient improved clinically overall. WBC WNL. Stable respiratory
status. Alert and oriented. Recommend diet upgrade to IDDSI Level 6 Soft and Bite Size diet, thin liquids. Medications with small sip of thin liquid. Aspiration precautions: Upright positioning; Small single sips; Small bites; Slow rate; Thorough
mastication; Use sauces/gravies/jellies/jams to moisten textures; Avoid hard/dry textures; Alternate textures/intersperse liquids during meals; Small frequent meals to prevent muscle fatigue; Remain upright 30 minutes after eating/drinking. Patient
educated on aspiration precautions and diet recommendations. Provided patient with handout with IDDSI Level 6 Diet guidelines. Patient verbally reported he understood all recommendations. Discussed recommendations with RN and Dr. Hoover.
RECOMMEND:
1) upgrade diet to IDDSI Level 6 soft and bite size, thin liquids
2) Meds whole with sip of thin liquid
3) Aspiration precautions: Upright positioning; Small single sips; Small bites; Slow rate; Thorough mastication; Use sauces/gravies/jellies/jams to moisten textures; Avoid hard/dry textures; Alternate textures/intersperse liquids during meals; Small
frequent meals to prevent muscle fatigue; Remain upright 30 minutes after eating/drinking
4) ST to continue to follow at the acute care level, ensure adequate diet tolerance
5) Oral care 3x/day
--- NOTE | 2024-11-04 14:27 | W.DCSUMMARY ---
Discharge Summary
Discharge Data
Date of Admission: 10/30/24
Date of Discharge: 11/04/24
-
Pending Results: No
Hospital Course
Discharge diagnosis:
Acute sigmoid diverticulitis
Bacteremia
Exacerbation of myasthenia gravis
Acute hypoxic respiratory sufficiency
Dysphagia
Weakness
Essential hypertension
Bilateral lower extremity edema
Abdominal distention
Transaminitis
Renal cell cancer with right 11th with metastases
Type 2 diabetes
Chronic hyponatremia
Insomnia
Obstructive sleep apnea
Consults: Neurology, ID, mental health specialist
CT abd/pelvis:
1. Mild acute uncomplicated diverticulitis of the distal descending/proximal sigmoid colon.
2. Small right and trace left pleural effusions.
3. Redemonstration of posterior right 11th rib metastasis, decreased from prior.
Hospital course:
69-year-old male with a past medical history of myasthenia gravis, renal cancer with right 11th rib metastases, diabetes, hypertension, and chronic hyponatremia was admitted for exacerbation of myasthenia gravis and acute sigmoid diverticulitis.
Patient vomited multiple times prior to admission, and was unable to hold down his Mestinon. He was seen in conjunction with neurology, who initially increased his Mestinon and started him on prednisone 5 mg daily. The increased dose of Mestinon
gave him severe diarrhea. Neurology decreased his Mestinon back to his home dose, and treated him with 3 days of IVIG.
Patient had dysphagia and weakness secondary to his myasthenia gravis exacerbation. He was seen in conjunction with PT, who recommended home care. He was seen in conjunction with speech pathology, who initially recommended a pur�ed diet. On the
day of discharge, he was upgraded to a soft and bite-size diet.
Patient also had acute sigmoid diverticulitis and E. coli bacteremia. He was seen in conjunction with ID. He was treated with IV Unasyn while in the hospital. ID recommends discharge on Augmentin through 11/08/2024 to complete a 10-day course.
Patient's weakness, dysphagia, and shortness of breath resolved after receiving 3 days of IVIG. Neurology recommends continuing his previous Mestinon dose and prednisone 5 mg daily upon discharge.
Patient is medically stable and cleared by neurology and ID for discharge. He needs to follow-up with his primary care doctor in 1 week, as well as his usual neurologist in the office as soon as possible.
Disposition: Home with home care
Discharge planning: Required 41 minutes
Discharge Plan
-
Patient Disposition: Home with Home Care
Discharge Diagnosis/Procedures: Exacerbation of myasthenia gravis, acute hypoxic respiratory insufficiency, diverticulitis, E. coli bacteremia, dysphagia
Condition: Good
Diet: Chop all food
Additional Diets: Soft and bite-size diet
Activity: As tolerated
Driving Restrictions: As prior to admission
Other Services: PT and OT
Activity Restrictions/Additional Instructions:
Follow-up with your primary care doctor in 1 week, and your usual neurologist as soon as possible.
Referrals:
Emma Lemos MD [Family Provider] - in one week
Prescriptions:
New
prednisone 5 mg Tablet
5 mg PO DAILY Qty: 30 0RF
amoxicillin-pot clavulanate 875-125 mg Tablet
1 tab PO Q12 5 Days Qty: 10 0RF
Continued
Multivitamin
1 tab PO DAILY
pioglitazone-metformin [Actoplus MET] 1 TAB tablet
1 tab PO BID
atorvastatin 40 MG tablet
10 mg PO DAILY
Allopurinol
100 mg PO DAILY
Melatonin
5 mg PO HS
Vitamin D3:
2,000 unit PO DAILY
Vitamin E :
450 mg PO DAILY
amlodipine [Norvasc] 5 mg tablet
5 mg PO DAILY Qty: 14 0RF
carvedilol [Coreg] 25 mg Tablet
25 mg PO BID
metformin 850 mg Tablet
850 mg PO BID
tamsulosin [Flomax] 0.4 mg Capsule
0.4 mg PO DAILY
pyridostigmine bromide [Mestinon] 60 mg Tablet
30 mg PO TID
losartan 100 mg Tablet
100 mg PO DAILY
escitalopram oxalate [Lexapro] 10 mg Tablet
10 mg PO DAILY
Cabometyx 20 mg Tablet
20 mg PO DAILY
pantoprazole 40 mg Tablet,Delayed Release (Dr/Ec)
40 mg PO DAILY
Discharge Orders:
Discharge Patient (As Directed); Ordered 11/04/24
Ordered By: Prakash Hoover
Discharge Date and Time
Discharge Date/Time: 11/04/24 15:36
Print Language: [id number]
--- NOTE | 2024-11-04 15:25 | PTCARENOTE ---
Patient discharged to home. Discharge instructions reviewed and all questions answered. Patient left with all known belongings with who is here to take him home.
--- NOTE | 2024-11-04 15:30 | CM ---
Met with patient who was preparing for discharge.
The patient says he feels ready for discharge home today. IMM completed.
He plans on doing outpatient PT and has a script already.
was present and will provide transport home.
No CM d/c needs identified.
Plan home today.
== END 2024-11-04 15:36 | disposition home or self-care (01) | DRG 57 ==
LOC: IMU 22:01
PROVIDERS: Emergency Medicine; Nurse Practitioner Family; Physician Assistant; ADMITTING PHYSICIAN Hospitalist; ATTENDING PHYSICIAN Family Medicine; CONSULT PHYSICIAN Internal Medicine Infectious Disease; EMERGENCY PHYSICIAN Emergency Medicine; FAMILY PHYSICIAN Hospitalist; OTHER PHYSICIAN Internal Medicine; OTHER PHYSICIAN Psychiatry & Neurology Clinical Neurophysiology
PROC: 5A09357 Assistance with Respiratory Ventilation, Less than 24 Consecutive Hours, Continuous Positive Airway Pressure (ICD-10-PCS; 2024-11-01)
DX: G70.01 Myasthenia gravis with (acute) exacerbation (principal); K57.32 Diverticulitis of large intestine without perforation or abscess without bleeding; R78.81 Bacteremia; C64.1 Malignant neoplasm of right kidney, except renal pelvis; C79.51 Secondary malignant neoplasm of bone; E87.1 Hypo-osmolality and hyponatremia; E87.20 Acidosis, unspecified; R09.02 Hypoxemia; B96.20 Unspecified Escherichia coli [E. coli] as the cause of diseases classified elsewhere; R13.10 Dysphagia, unspecified; I10 Essential (primary) hypertension; E11.9 Type 2 diabetes mellitus without complications; G47.00 Insomnia, unspecified; G47.33 Obstructive sleep apnea (adult) (pediatric); Z90.5 Acquired absence of kidney; N40.0 Benign prostatic hyperplasia without lower urinary tract symptoms; Z88.6 Allergy status to analgesic agent; Z79.84 Long term (current) use of oral hypoglycemic drugs; D69.6 Thrombocytopenia, unspecified; K21.9 Gastro-esophageal reflux disease without esophagitis; E78.00 Pure hypercholesterolemia, unspecified; Z80.0 Family history of malignant neoplasm of digestive organs; Z80.42 Family history of malignant neoplasm of prostate; Z11.52 Encounter for screening for COVID-19
CPT/HCPCS: 36600; 71045; 74177; 74230; 76700; 80048; 80053; 81003; 81015; 82248; 82805; 82962; 83036; 83605; 83690; 83735; 83880; 84100; 84443; 84484; 85025; 85027; 85610; 85730; 87040; 87045; 87046; 87149; 87186; 87205; 87324; 87427; 87449; 87502; 87798; 87811; 92526; 92610; 92611; 93005; 93306; 94660; 96361; 96365; 96375; 97116; 97162; 97166; 97535; 99291; J1569; Q9967

== ENCOUNTER → 2025-02-27 09:06 | Outpatient (REF) | payer MEDICARE, OTHER, SELFPAY | LOC: RAD 09:06 | PROVIDERS: ATTENDING PHYSICIAN Nurse Practitioner Gerontology; FAMILY PHYSICIAN Hospitalist | DX: C64.1 Malignant neoplasm of right kidney, except renal pelvis (principal); I82.462 Acute embolism and thrombosis of left calf muscular vein | CPT/HCPCS: 93971 ==

== ENCOUNTER → 2025-04-01 07:16 | Outpatient (REF) | payer MEDICARE, OTHER, SELFPAY ==
[2025-04-01 08:23] LABS: Hematocrit 34.0 % (39.0-52.0); Hemoglobin 11.0 g/dL (13.0-18.0); Mean Corp Hgb Conc. 32.4 g/dL (33.0-37.0); Mean Corpuscular Volume 81.5 fL (80.0-94.0); Red Cell Dist. Width 16.2 % (11.5-14.5)
[2025-04-01 09:06] LABS: ALT (SGPT) 61 U/L (0-50); AST (SGOT) 39 U/L (17-59); Albumin 3.7 g/dl (3.5-5.0); Alkaline Phosphatase 92 U/L (38-126); Blood Urea Nitrogen 19 mg/dl (9-20); Calcium 9.3 mg/dl (8.4-10.2); Carbon Dioxide 26 mmol/L (22-30); Chloride 100 mmol/L (98-107); Glucose 180 mg/dl (70-99); Potassium 4.4 mmol/L (3.5-5.1); Sodium 131 mmol/L (135-145); Total Protein 6.2 g/dl (6.3-8.2); eGFR > 60.00
[2025-04-01 10:48] LABS: Nucleated Red Blood Cells % 0 % (-); Platelet Count 80 10^3/uL (130-400)
== END ==
LOC: REG 07:16
PROVIDERS: FAMILY PHYSICIAN Internal Medicine
DX: C64.1 Malignant neoplasm of right kidney, except renal pelvis (principal); I10 Essential (primary) hypertension
CPT/HCPCS: 36415; 80053; 84439; 84443; 85025

== ENCOUNTER 2025-05-02 16:36 | Inpatient (IN) | payer MEDICARE, OTHER, SELFPAY ==
[2025-05-02 11:14] VITALS: BP 157/97
--- NOTE | 2025-05-02 12:18 | ED.GENMED ---
History of Present Illness
<MENA Beebe - Last Filed: 05/02/25 16:50>
General
Chief Complaint: Abdominal Symptoms
Source: patient and spouse
Exam Limitations: none
Time Seen by Provider: 05/02/25 12:14
Nursing documentation reviewed up to this point in time: agreed with
History of Present Illness
History of Present Illness:
Patient is a 6-year-old male with past medical history of myasthenia gravis, renal cancer with metastasis to the bone/ribs/7lumbar vertebrae presents to the ER for evaluation. He is followed by Dr. Forte at [facility]. Patient is on oral chemo however
has not felt well. he started vomiting this am and has not taken his medications. He does c/o of headache. He does have chronic pain across his upper abdomen and this was felt by [facility] to be nerve related and he did have an ablation to his nerve
done. He does feel short winded reports he was short winded when he went to get the mail yesterday and his pulse ox was about 90%.
reports patient had a CAT scan of his abdomen done recently at [facility] which showed abnormal thickening in his abdomen
Past History
<MENA Beebe - Last Filed: 05/02/25 16:50>
Past History
ED Past Medical History: GERD, HTN, Hypercholesterolemia, NIDDM (blood sugars on prednisone have been 104 AC to 140 after eating), Other (R hip pain past few years w xrays, injections, using cane intermittently, sees Rheumatologis for this) and
Other (Diverticulitis, C. differential colitis 8 years ago)
ED Past Surgical History: Orthopedic (Lumbar laminectomy 1987)
Social History
Tobacco: Non-smoker
Alcohol: Occasional
Personal:
Living: with family
Employment: Retired
Family History
Family History: Diabetes and Other (father with colon cancer and prostate cancer)
Phy Exam
<MENA Beebe - Last Filed: 05/02/25 16:50>
General Physical Exam
General Presentation: no apparent distress
General age: appears stated age
General Skin: warm and dry
General Habitus: normal
General Mental: alert
General Hydration: dry mucous membranes
Cardiovascular Exam
Cardiovascular Exam: regular rate/rhythm, no murmur and normal peripheral pulses
Pulmonary Exam
Pulmonary Exam: lungs clear and no respiratory distress
Gastrointestinal Exam
Gastrointestinal Exam: soft and other (mild upper abd tenderness)
Neurological Exam
Neurological Exam: alert and oriented x3
Musculoskeletal Exam
Musculoskeletal Exam: full ROM
Skin Exam
Skin Exam: normal color and warm/dry
Psychiatric Exam
Psychiatric Exam: normal mood/affect
Course
<MENA Beebe - Last Filed: 05/02/25 16:50>
Orders/Labs/Results
Orders:
Orders
05/02/25 12:19
Cardiac Monitoring- Treatment ONCE
IV Insert/Care/Rem.- Treatment PRN
0.9% Sodium Chloride 1000 ml [Nss] 1,000 ml IV BOLUS
05/02/25 12:34
Ondansetron Injectable [Zofran] 4 mg IV NOW STA
05/02/25 12:44
CT Pe/abd/pel W Urgent
Comment:
Reason For Exam: SOB/upper abd pain hx of cancer
05/02/25 13:00
Complete Blood Count/With Diff Urgent
Comprehensive Metabolic Panel Urgent
Lipase Urgent
05/02/25 14:37
HYDROmorphone [Dilaudid] 1 mg IV NOW STA
05/02/25 14:50
Urinalysis Reflex To Culture Urgent
Date Specimen was Collected: 05/02/25
Time Specimen was Collected: 14:45
05/02/25 15:28
Electrocardiogram (*1) Stat
Reason for Study: Other
Other Reason for Exam: chest pain
EKG- Treatment ONCE
05/02/25 15:30
US Abdomen Complete/Upper Urgent
Comment:
Reason For Exam: ruq tenderness
05/02/25 15:46
Ampicillin/Sulbactam 3 G [Unasyn] 3 gm 0.9% Sodium Chloride 100 ml [Nss] 100 ml IV NOW
05/02/25 15:52
EKG [Electrocardiogram (*1)] Stat
Reason for Study: QTc Monitoring
05/02/25 16:16
Admit/Transfer Patient As Directed
Co-Sign Provider:
Level of Care: Inpatient admission
Assign to:: Medical/Surgical
Physician / Group: [facility]
Diagnosis: diverticulitis
Reason for Hospitalization: diverticulitis
Expected length of stay greater than two midnights?: Yes
ELOS- Estimated Length of Stay in days: 3
I certify the patient meets the requirements for IP care: Yes
PRN Pain Medication Management As Directed
May give lesser potent ordered pain med per pt: Yes
preference::
Protocol:: Medication orders for pain may be administered in a
manner that supports deferring to patient preference
when the pt is:
- Requesting an ordered lesser potent pain medication.
Least to most potent pain medications are defined
as: acetaminophen < NSAID < tramadol < opioids
(morphine, oxycodone, hydromorphone).
- Requesting a lesser dose of the same medication IF
ORDERED.
- Requesting a less intrusive route of administration
if both routes are prescribed by the provider (PO <
IV).
05/02/25 16:18
Code Status As Directed
Resuscitation Status: Full Code
Abnormal Lab Results
05/02/25 05/02/25
13:00 14:50
RBC 3.90 L 10^6/uL
(4.70-6.10)
Hgb 10.0 L g/dL
(13.0-18.0)
Hct 31.1 L %
(39.0-52.0)
MCV 79.7 L fL
(80.0-94.0)
MCH 25.6 L pg
(27.0-31.0)
MCHC 32.2 L g/dL
(33.0-37.0)
RDW 17.6 H %
(11.5-14.5)
Absolute Lymphs (auto) 0.7 L 10^3/uL
(1.2-3.4)
Absolute Monos (auto) 0.9 H 10^3/uL
(0.1-0.6)
Immature Gran % 0.6 H %
(0-0.5)
Lymphocytes % 10.9 L %
(20.5-51.1)
Monocytes % 13.0 H %
(1.7-9.3)
Sodium 133 L mmol/L
(135-145)
Chloride 97 L mmol/L
(98-107)
Glucose 140 H mg/dl
(70-99)
Urine Ketones 1+ A
(Negative)
05/02/25 13:00
05/02/25 13:00
Vital Signs
Initial and Last Documented VS:
Initial Vital Signs
Temp Pulse Resp BP Pulse Ox
98.9 F 78 18 157/97 95
05/02/25 11:14 05/02/25 11:14 05/02/25 11:14 05/02/25 11:14 05/02/25 11:14
Last Documented Vital Signs
Temp Pulse Resp BP Pulse Ox
98.9 F 70 16 156/86 98
05/02/25 11:14 05/02/25 16:36 05/02/25 16:36 05/02/25 16:36 05/02/25 16:36
Oceanographic Meteorologist consulted with Physician
Oceanographic Meteorologist consulted with physician?: Yes
Name of Physician Consulted: Krysta
<Lotuskeith Isaacs, DO - Last Filed: 05/02/25 15:43>
Orders/Labs/Results
Orders:
Orders
05/02/25 12:19
Cardiac Monitoring- Treatment ONCE
IV Insert/Care/Rem.- Treatment PRN
0.9% Sodium Chloride 1000 ml [Nss] 1,000 ml IV BOLUS
05/02/25 12:34
Ondansetron Injectable [Zofran] 4 mg IV NOW STA
05/02/25 12:44
CT Pe/abd/pel W Urgent
Comment:
Reason For Exam: SOB/upper abd pain hx of cancer
05/02/25 13:00
Complete Blood Count/With Diff Urgent
Comprehensive Metabolic Panel Urgent
Lipase Urgent
05/02/25 14:37
HYDROmorphone [Dilaudid] 1 mg IV NOW STA
05/02/25 14:50
Urinalysis Reflex To Culture Urgent
Date Specimen was Collected: 05/02/25
Time Specimen was Collected: 14:45
05/02/25 15:28
Electrocardiogram (*1) Stat
Reason for Study: Other
Other Reason for Exam: chest pain
EKG- Treatment ONCE
05/02/25 15:30
US Abdomen Complete/Upper Urgent
Comment:
Reason For Exam: ruq tenderness
05/02/25 15:46
Ampicillin/Sulbactam 3 G [Unasyn] 3 gm 0.9% Sodium Chloride 100 ml [Nss] 100 ml IV NOW
05/02/25 15:52
EKG [Electrocardiogram (*1)] Stat
Reason for Study: QTc Monitoring
05/02/25 16:16
Admit/Transfer Patient As Directed
Co-Sign Provider:
Level of Care: Inpatient admission
Assign to:: Medical/Surgical
Physician / Group: ashley
Diagnosis: diverticulitis
Reason for Hospitalization: diverticulitis
Expected length of stay greater than two midnights?: Yes
ELOS- Estimated Length of Stay in days: 3
I certify the patient meets the requirements for IP care: Yes
PRN Pain Medication Management As Directed
May give lesser potent ordered pain med per pt: Yes
preference::
Protocol:: Medication orders for pain may be administered in a
manner that supports deferring to patient preference
when the pt is:
- Requesting an ordered lesser potent pain medication.
Least to most potent pain medications are defined
as: acetaminophen < NSAID < tramadol < opioids
(morphine, oxycodone, hydromorphone).
- Requesting a lesser dose of the same medication IF
ORDERED.
- Requesting a less intrusive route of administration
if both routes are prescribed by the provider (PO <
IV).
05/02/25 16:18
Code Status As Directed
Resuscitation Status: Full Code
Abnormal Lab Results
05/02/25 05/02/25
13:00 14:50
RBC 3.90 L 10^6/uL
(4.70-6.10)
Hgb 10.0 L g/dL
(13.0-18.0)
Hct 31.1 L %
(39.0-52.0)
MCV 79.7 L fL
(80.0-94.0)
MCH 25.6 L pg
(27.0-31.0)
MCHC 32.2 L g/dL
(33.0-37.0)
RDW 17.6 H %
(11.5-14.5)
Absolute Lymphs (auto) 0.7 L 10^3/uL
(1.2-3.4)
Absolute Monos (auto) 0.9 H 10^3/uL
(0.1-0.6)
Immature Gran % 0.6 H %
(0-0.5)
Lymphocytes % 10.9 L %
(20.5-51.1)
Monocytes % 13.0 H %
(1.7-9.3)
Sodium 133 L mmol/L
(135-145)
Chloride 97 L mmol/L
(98-107)
Glucose 140 H mg/dl
(70-99)
Urine Ketones 1+ A
(Negative)
05/02/25 13:00
05/02/25 13:00
Vital Signs
Initial and Last Documented VS:
Initial Vital Signs
Temp Pulse Resp BP Pulse Ox
98.9 F 78 18 157/97 95
05/02/25 11:14 05/02/25 11:14 05/02/25 11:14 05/02/25 11:14 05/02/25 11:14
Last Documented Vital Signs
Temp Pulse Resp BP Pulse Ox
98.9 F 70 16 156/86 98
05/02/25 11:14 05/02/25 16:36 05/02/25 16:36 05/02/25 16:36 05/02/25 16:36
<MENA Beebe - Last Filed: 05/02/25 16:50>
MDM/Problems Addressed
Differential Diagnosis Includes:
Not limited to colitis diverticulitis cholecystitis PE pneumonia anemia dehydration electrolyte abnormality
MDM/Problems Addressed:
As documented patient is a 69-year-old male with metastatic renal cancer to the bone presents to the ER for evaluation nausea vomiting. He was slightly short of breath yesterday while walking to get the mail he is followed by [facility]
[place] on oral chemotherapy and started with nausea and vomiting this morning. Incidentally patient had a CAT scan recently done which showed questional thickening of the abdomen. Patient has chronic upper abdominal pain which he reports
they feel is nerve related. He did have an ablation of these nerves. He presents awake alert he is dehydrated on exam but no vomiting. He has nauseous. He is afebrile. Normal white count. His hemoglobin is stable at 10.0. Patient's sodium is
133 normal renal function, normal LFTs negative urinalysis.
CAT scan is negative for PE there is a moderate size right pleural effusion and mild inflammation surrounding the sigmoid colon consistent with diverticulitis with no abscess. There is layering sludge and pericholecystic fluid posteriorly LFTs are
normal. will order a dedicated US.
<MENA Beebe - Last Filed: 05/02/25 16:50>
*Radiology
Radiology exam reviewed: radiology read reviewed
*Pulse Oximetry
SaO2: 95
Oxygen Mode of Delivery: Room air
Patient hypoxic: no
*Critical Care Note
Total Time (30-74mins, 75-104mins- exclusive of procedures): Not Applicable
ED Attending Note
<MENA Beebe - Last Filed: 05/02/25 16:50>
-
Portions of this chart may have been created with voice recognition software.� Occasional wrong word or��sound alike� substitutions may have occurred due to the inherent limitations of voice recognition software.
<Lotus Isaacs DO - Last Filed: 05/02/25 15:43>
ED Attending Note
Patient seen and examined by attending physician: Yes
I performed the substantive portion of visit, reviewed & personally made and approve the management plan that is documented in note by myself or ANOOP.: Yes
I performed a history and physical exam of patient and discussed management with resident, I reviewed resident's note and agree with documented findings and plan of care.: Yes
ED Attending Note:
69-year-old male with history of stage IV renal cell carcinoma, diabetes, hypertension, myasthenia gravis presenting to the emergency department for nausea and vomiting. Patient reports symptoms started last evening and progressed into this
morning. He has not been able to tolerate p.o. Also reports associated abdominal discomfort. He receives his oncologic care at [facility] [place]. Notes he had a CAT scan a few weeks ago that showed some general inflammation to the
colon. No report of any fevers. Has also had a headache, however notes that it started after all of the vomiting.
Vital signs on arrival are significant for mild hypertension. On exam, patient is in no acute distress, slight dryness to his mucous membranes. Unremarkable cardiac and pulmonary exam. On abdominal exam, generalized tenderness, most pronounced in
the right upper quadrant, epigastric, the left lower quadrant. Patient initially seen by nurse practitioner prior to my assessment with laboratory analysis, CT abdomen and pelvis. Labs relatively unremarkable, baseline anemia. CT however is
concerning for diverticulitis as well as some pericholecystic fluid. Patient notes history of diverticulitis in the past. This is consistent with patient's examination. Cholecystitis is also consideration so we will obtain dedicated ultrasound
imaging. Started patient on antibiotics with plan for admission given patient's inability to tolerate p.o. due to symptoms of persistent nausea vomiting, with significant comorbidities.
Discharge Plan
Departure
Patient Disposition: Admit
Date of Disposition: 05/02/25
Time of Disposition: 15:32
Admit to: Med/Surg
Admit to doctor: hospitalist
Presentation/result/management discussed w/ accepting MD/DO: Hospitalist
Patient with high blood pressure during this ER visit?: Yes
Covid-19: Not Applicable
Discharge Problem:
Diverticulitis, Nausea & vomiting, Pleural effusion
Interventions
Interventions:
*Risk Screen - Suicide Last Done: 05/02/25 11:14
*General Assessment Last Done: 05/02/25 12:57
*Neglect/Abuse Screening Last Done: 05/02/25 12:58
*ED- Fall Risk Assessment Last Done: 05/02/25 12:56
*ED COVID-19 Vaccine History Last Done: 05/02/25 12:56
*ED Influenza Vaccine History Last Done: 05/02/25 12:56
MD-Izysuv-Jnqwokywmh Assessment Last Done: 05/02/25 16:18
[2025-05-02 12:53] VITALS: BMI 30.1
[2025-05-02] MEDS: NSS 1000 IV (13:02)
[2025-05-02] MEDS: ZOFRAN 4 MG IV (13:06)
[2025-05-02 13:22] LABS: Hematocrit 31.1 % (39.0-52.0); Hemoglobin 10.0 g/dL (13.0-18.0); Mean Corp Hgb Conc. 32.2 g/dL (33.0-37.0); Mean Corpuscular Volume 79.7 fL (80.0-94.0); Nucleated Red Blood Cells % 0 % (-); Platelet Count 150 10^3/uL (130-400); Red Cell Dist. Width 17.6 % (11.5-14.5)
[2025-05-02 13:32] LABS: ALT (SGPT) 37 U/L (0-50); AST (SGOT) 35 U/L (17-59); Albumin 3.7 g/dl (3.5-5.0); Alkaline Phosphatase 73 U/L (38-126); Blood Urea Nitrogen 10 mg/dl (9-20); Calcium 8.8 mg/dl (8.4-10.2); Carbon Dioxide 30 mmol/L (22-30); Chloride 97 mmol/L (98-107); Estimated Creatinine Clearance 80 ml/min; Glucose 140 mg/dl (70-99); Lipase 30 U/L (23-300); Potassium 3.5 mmol/L (3.5-5.1); Sodium 133 mmol/L (135-145); Total Protein 6.5 g/dl (6.3-8.2); eGFR > 60.00
[2025-05-02 14:14] VITALS: BP 168/94
[2025-05-02] MEDS: DILAUDID 1 MG IV (14:48)
[2025-05-02 15:10] LABS: Urine Character Clear (Clear)
--- NOTE | 2025-05-02 15:45 | HPS.HSE ---
Addendum entered and electronically signed by Kayode Rebollar MD 05/02/25 20:47:
This is an addendum to the H&P written by Sandi Reyes on 05/02/2025. �Patient seen and examined independently with [facility].
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 coli bacteremia, dysphagia,
hypertension, diabetes, obstructive sleep apnea, chronic hyponatremia presenting with feeling unwell. �He had vomiting this morning and not able to take medication. �He has headache.
He has chronic pain across his upper abdomen that was thought to be nerve related and he had an ablation to the nerve performed. �He was short of breath he went to get the mail yesterday and pulse ox was 90%.
Vital signs show blood pressure 150s to 160s systolic.
Labs show stable anemia of 10.
CT abdomen pelvis shows mild inflammation surrounding the sigmoid colon consistent with diverticulitis. �No abscess. �There is layering sludge, pericholecystic fluid posteriorly possibly suggesting acute cholecystitis. �There is also moderate size
right sided pleural effusion with compressive atelectasis. �Abdominal ultrasound shows tumefactive sludge within the gallbladder lumen without evidence of shadowing gallstones. �Bladder wall is slightly thickened without evidence of Marco Antonio
cholecystic anemia. �Negative sonographic Montejo sign.
Patient with acute diverticulitis. �IV fluids given, hold further fluids. �No clear-cut evidence of acute cholecystitis although gallbladder wall thickening with sludge present. �NPO. �Zosyn. �General surgery consulted.
Moderate right-sided pleural effusion could be malignant, IR for thoracentesis since patient symptomatic. �Respiratory symptoms are not suggestive of myasthenia gravis flareup.
Original Note:
Family Physician
-
Family Physician: Pavel Reaves
Chief Complaint
-
nausea
History of Present Illness
69-year-old male with past medical history of myasthenia gravis, renal cancer with metastasis to the bone/ribs/7lumbar vertebrae presents to the ER for nausea. patient is dry heaving for past few days. last Thursday he vomited after taking his home
medication. he felt better for the rest of the day and following days. he was dry heaving on Thursday, took Zofran and pain medication with relief in his symptoms.he took his oral chemo meds on Thursday. he was dry heaving yesterday which resolved on
its own. today he noted persistent dry heave and vomited multiple times. he vomitted last night as well. he was very weak. since yesterday he was sob, which was worse with exertion. yesterday, he got winded after walking to the mailbox and his
oxygen was low 90s.. denied chest pain, congestion, fever, chills.his abdomen was tender. denied JAFFE, dizzy or syncope.denied dysuria or hematuria. He is followed by Dr. Forte at [facility]. He does have chronic pain across his upper abdomen and chest
pain and this was felt by [facility] to be nerve related and he did have an ablation to his nerve done. the noted petechiae rash on UE and LE.
reports patient had a CAT scan of his abdomen done recently at [facility] which showed abnormal thickening in his abdomen.
CT concern for diverticulitis and acute cholecystitis. received Unasyn in ER. admitting for further management.
Medical History
Past Medical History
Past Medical History: Reports Other
Additional Past Medical History:
Renal cell carcinoma of right kidney, mets to bone, hyperlipidemia, hypertension, obstructive sleep apnea on CPAP, diverticulosis, diverticulitis, GERD, lumbar herniated disc, allergic rhinitis, type 2 diabetes, lateral pharyngeal reflux disease,
ocular myasthenia gravis,
Past Surgical History: Reports Other
Additional Past Surgical History:
Lumbar laminectomy, wisdom teeth extraction, back surgery, right kidney removal, spine cancer removal, L3-L5 discectomy and fusion
Social History
Tobacco: Non-smoker
Alcohol: None
Drug: None
Personal:
Living: With Family
Family History
Family History: Not pertinent
Allergies / Home Medications
Allergies reflects when Allergies were last updated in [employer].
Home Medications with original date entered in [employer]
Allergy/Medication List:
Allergies
Allergy/AdvReac Type Severity Reaction Status Date / Time
aspirin Allergy Hives Verified 05/02/25 11:14
naproxen Allergy urinary Verified 05/02/25 11:14
burning
Home Medications
allopurinol 100 mg tablet 100 mg PO DAILY Gout ##0 09/13/19
cholecalciferol (vitamin D3) 25 mcg (1,000 unit) tablet (Vitamin D3) 25 mcg PO DAILY Supplement ##0 09/13/19
melatonin 3 mg tablet 3 mg PO HSPRN PRN SLEEP ##0 09/13/19
amlodipine 5 mg tablet (Norvasc) 5 mg PO DAILY #14 tabs 05/15/24
carvedilol 25 mg tablet (Coreg) 25 mg PO BID Blood Pressure 10/30/24
escitalopram oxalate 10 mg tablet (Lexapro) 10 mg PO DAILY Mental Health/Anxiety 10/30/24
losartan 100 mg tablet 100 mg PO DAILY Blood Pressure 10/30/24
metformin 850 mg tablet 850 mg PO BID Diabetes 10/30/24
pyridostigmine bromide 60 mg tablet (Mestinon) 30 mg PO TID Neurological Condition 10/30/24
tamsulosin 0.4 mg capsule (Flomax) 0.4 mg PO DAILY Urinary Issue 10/30/24
prednisone 5 mg tablet 5 mg PO DAILY #30 tabs 11/04/24
atorvastatin 10 mg tablet (Lipitor) 10 mg PO QPM 05/02/25
fentanyl 12 mcg/hr transdermal patch 1 patch transdermal Q72H 05/02/25
fentanyl 25 mcg/hr transdermal patch 1 patch transdermal Q72H WITH 12MCG PATCH 05/02/25
oxycodone 10 mg tablet 10 mg PO Q4HPRN PRN SEREVE PAINS 05/02/25
sennosides 8.6 mg tablet (senna) 8.6 mg PO BIDPRN PRN CONSTIPATION 05/02/25
Review of Systems
-
Constitutional: Reports Fatigue
EENT: Reports No Symptoms
Respiratory: Reports Trouble Breathing
Cardiac: Reports No Symptoms
Abdomen/GI: Reports Abdominal Pain, Nausea and Vomiting
: Reports No Symptoms
Musculoskeletal: Reports No Symptoms
Skin: Reports Rash
Neurological: Reports No Symptoms
Endocrine: Reports No Symptoms
Hematologic/Lymphatic: Reports No Symptoms
Psych: Reports No Symptoms
Physical Exam
Vital Signs
Vital Signs
Temp Pulse Resp BP Pulse Ox
98.9 F 66 14 168/94 96
05/02/25 11:14 05/02/25 14:18 05/02/25 14:15 05/02/25 14:14 05/02/25 14:15
Physical Exam
General: Well Developed, Well Nourished and No Apparent Distress
HEENT: NormoCephalic, Moist mucous membranes and Atraumatic
Respiratory: Clear
Cardiac: S1/S2 and Regular Rhythm; No Murmur or Rub
GI: Soft, Non Distended, Normal Bowel Sounds and Tender; No Organomegaly
Rectal: Deferred by Provider
Musculoskeletal: No Clubbing, No Cyanosis and No Edema
Skin: Rash (petachiae)
Neuro: AO x 3 and Nonfocal/grossly intact
Psych: Calm
Laboratory Results
-
05/02/25 13:00
05/02/25 13:00
Laboratory Results
Total Bilirubin 0.7 mg/dl (0.2-1.3) 05/02/25 13:00
AST 35 U/L (17-59) 05/02/25 13:00
ALT 37 U/L (0-50) 05/02/25 13:00
Alkaline Phosphatase 73 U/L (38-126) 05/02/25 13:00
Lipase 30 U/L (23-300) 05/02/25 13:00
Data Reviewed
-
CT Scan: Report Reviewed by me
Lab Data: Labs Reviewed by me
Impression/Plan
-
# Nausea vomiting concern for diverticulitis/cholecystitis
- CT abdomen pelvis with impression of There is mild inflammation surrounding the sigmoid colon consistent with diverticulitis. There is no abscess collection
2. There is layering sludge. There is pericholecystic fluid posteriorly. Please correlate with signs of acute cholecystitis
- Ultrasound of abdomen Tumefactive sludge is present within the gallbladder lumen with no evidence for shadowing gallstones. The gallbladder wall is slightly thickened, but with no evidence for pericholecystic edema. Patient has a negative
sonographic Montejo's sign.No evidence for biliary ductal dilation.Status post right nephrectomy.Pancreatic tail is unable to be adequately visualized.Upper abdominal IVC and upper abdominal aorta are unable to be adequately visualized.
- IV Unasyn continued
- Fluids continued for hydration
- Dilaudid as needed for pain
- Zosyn for nausea vomiting
-surgery consulted
# Short of breath secondary to pleural effusion
- CT with moderate right-sided pleural effusion
-IR consulted for thoracentesis
#petechiae rash
-unclear cause
-labs stable
-ctm
#chornic epigastric and mid sternum chest pain
-ctm
# Metastatic renal cancer
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
- S/p R nephrectomy, rib XRT and currently on oral chemo. Followed at [facility].
- Follow-up with [facility] after acute hospital stay.
# Anemia of chronic disease
- Hemoglobin stable at 10.0, no active bleeding
- Continue to monitor
# Chronic hyponatremia
- Sodium 133
- Continue to monitor
#Myasthenia Gravis
-Mestinon continued
#GOUT
-allopurinol continued
#Essential hypertension
-Coreg 25 mg twice a day, continue amlodipine 5 mg daily, losartan 100 mg daily
#HLD
-statin
#anxiety
-escitalopram continued
DM-II
- Hold PO regimen acutely.
- SSI as needed.
#Insomnia
- melatonin
#BPH
-Flomax
#GILBERTO
- Continue CPAP at night and PRN.
- Titrate settings for comfort as patient does not recall home settings.
DVT Prophylaxis: SQ Lovenox
Code Status: Full
[2025-05-02] MEDS: UNASYN IV (16:33)
[2025-05-02 16:36] VITALS: BP 156/86
[2025-05-02 17:00] VITALS: BP 152/89
[2025-05-02 18:40] VITALS: BP 167/97; BMI 28.7
[2025-05-02 18:42] VITALS: BMI 28.7
[2025-05-02 19:55] LABS: Glucose - Point of Care 133 mg/dl (70-99)
[2025-05-02] MEDS: LOVENOX 40 MG SC (20:24)
[2025-05-02] MEDS: ROXICODONE 10 MG PO (20:25)
[2025-05-02] MEDS: COREG 25 MG PO (20:25)
[2025-05-02] MEDS: LIPITOR 10 MG PO (20:25)
[2025-05-02 20:47] LABS: LDH 280 U/L (120-246)
[2025-05-02 23:00] VITALS: BP 126/87
[2025-05-02] MEDS: ZOSYN 50 IV (23:07)
[2025-05-02] MEDS: MESTINON 30 MG PO (23:08)
[2025-05-02] MEDS: REMOVE DURAGESIC PATCH 37 PATCH REMOVE (23:18)
[2025-05-02] MEDS: DURAGESIC 25 MCG/HR PATCH 1 PATCH TRANSDERM (23:22)
[2025-05-02] MEDS: DURAGESIC 12 MCG/HR PATCH 1 PATCH TRANSDERM (23:26)
[2025-05-02 23:51] LABS: Glucose - Point of Care 141 mg/dl (70-99)
[2025-05-02] MEDS: NOVOLOG FLEXPEN-LOW RESISTANCE SC (23:53)
[2025-05-03] MEDS: ZOSYN 50 IV ×4 (05:51→22:03)
[2025-05-03 05:56] LABS: Glucose - Point of Care 122 mg/dl (70-99)
[2025-05-03] MEDS: NOVOLOG FLEXPEN-LOW RESISTANCE SC (05:56)
[2025-05-03 07:00] VITALS: BP 123/82
[2025-05-03 08:00] VITALS: BP 142/86; BP_SYST 81
[2025-05-03 08:46] LABS: Hematocrit 33.0 % (39.0-52.0); Hemoglobin 10.6 g/dL (13.0-18.0); Mean Corp Hgb Conc. 32.1 g/dL (33.0-37.0); Mean Corpuscular Volume 80.5 fL (80.0-94.0); Platelet Count 199 10^3/uL (130-400); Red Cell Dist. Width 18.0 % (11.5-14.5)
[2025-05-03] MEDS: NORVASC 5 MG PO (08:49)
[2025-05-03] MEDS: DELTASONE 5 MG PO (08:49)
[2025-05-03] MEDS: MESTINON 30 MG PO ×3 (08:49→22:01)
[2025-05-03] MEDS: COZAAR 100 MG PO (08:49)
[2025-05-03] MEDS: COREG 25 MG PO ×2 (08:49→19:57)
[2025-05-03] MEDS: ZYLOPRIM 100 MG PO (08:50)
[2025-05-03] MEDS: LEXAPRO 10 MG PO (08:50)
[2025-05-03] MEDS: FLOMAX 0.4 MG PO (08:50)
[2025-05-03] MEDS: ZOFRAN 4 MG IV (09:15)
[2025-05-03 09:26] LABS: Blood Urea Nitrogen 13 mg/dl (9-20); Calcium 8.1 mg/dl (8.4-10.2); Carbon Dioxide 23 mmol/L (22-30); Chloride 101 mmol/L (98-107); Estimated Creatinine Clearance 60 ml/min; Glucose 89 mg/dl (70-99); Potassium 3.6 mmol/L (3.5-5.1); Sodium 132 mmol/L (135-145); eGFR > 60.00
--- NOTE | 2025-05-03 09:33 | W.PN.HOSP.TC ---
Addendum entered and electronically signed by Alex Cornelius MD 05/03/25 16:25:
Diverticulitis of the sigmoid colon
Continue Zosyn with anaerobic coverage
IV fluid; clear liquid diet advance as tolerated
Biliary sludge
Surgery consulted no current intraoperative interventions planned
Right-sided pleural effusion small
IR was unable to complete thoracentesis
Open gravis
Continue pyridostigmine and prednisone will
Hypertension
Continue antihypertensives
Depression
Continue Lexapro
GILBERTO
Continue home CPAP
Read, reviewed, and agree. See same day progress note for additional details. Time spent reviewing records in EMR, med rec, consults, notes, d/w consultants, nursing, family, and CM
Original Note:
Today's Communication/Plan
-
Plan reviewed with attending
Reached out to oncologist for oral chemotherapy plans
Gen surg following
Continue abx and IVF
Clear diet
Assessment / Plan
Assessment / Plan
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
Pt had formed stool in the morning that later transformed to diarrhea by mid day. AFVSS. Communicating with oncologist team at [facility]. CT demonstrated sludge in GB with confirmation on US. Pt reports remote hx of light colored stool. ECG normal. Plan
was for thoracentesis of small R sided effusion, but fluid collection was too small to safely drain. Pt has chronic abdominal pain that was treated with a nerve ablation and controlled on fentanyl patch. Gen surg following, no current plans for
surgery.
#possible diverticulitis of sigmoid colon
#nausea, vomiting
- Continue abx
- IVF
- Clear diet as tolerated. Discussed w pt to take it slow
#biliary sludge
- Gen surg following
- no current plans for surgery
#R sided pleural effusion
- Monitor. No thoracentesis today
#MG
- continue pyridostigmine, prednisone
#HTN
-continue home medications
#depression
-continue home lexapro
#chronic abdominal pain
- continue fentanyl patch
#GILBERTO
- continue home cpap
#rash
- seemingly related to chemotherapy, improving off chemo
#RCC
- Hold everlimus and linvema. Inc ontact with [facility] oncologist for further management
#normocytic anemia
- stable
- Transfuse Hg<7
Anticipated Discharge: 24 - 48 hours
Subjective/Interval History
-
Date of Service: May 03, 2025
Today, pt reports feeling okay. He has abdominal discomfort but no vomiting this morning. He has mild nausea but was able to keep down his morning medicine unlike prior day. He tried taking zofran at home that did not help. He reports having
resolving petechial rash but improving macular rash since stopping his oral chemotherapy a few days ago per his [facility] oncologist.
Denies SOB, pain with breathing. When asked directly where the pain is, pt points to RUQ specifically and then diffusely across upper abdomen.
Objective Data
-
Labs:
Laboratory Results
05/03/25
05:59
WBC 8.9
Hgb 10.6 L
Hct 33.0 L
Plt Count 199 D
Sodium 132 L
Potassium 3.6
Chloride 101
Carbon Dioxide 23
BUN 13
Creatinine 1.1
Glucose 89
Calcium 8.1 L
Vital Signs:
Vital Signs
Temp Pulse Resp BP Pulse Ox
97.0 F 81 16 142/86 95
05/03/25 08:00 05/03/25 08:00 05/03/25 08:00 05/03/25 08:00 05/03/25 08:00
I&O
05/02/25 05/03/25 05/04/25
06:59 06:59 06:59
Intake Total 120 / 120
Balance 120 / 120
Review of Systems
-
History Source: Patient
All other systems: Reviewed and negative
Physical Exam
-
General: Well Developed, Well Nourished, No Apparent Distress and Comfortable
HEENT: Normocephalic, Atraumatic and Moist Mucous Membranes
Respiratory: Clear to Auscultation and Non Labored Respirations
Cardiac: Regular Rhythm and S1/S2
GI: Soft, Nondistended and Tender (mildly tender to deep palpation especially in upper quadrants)
Musculoskeletal: No Clubbing, No Cyanosis and No Edema
Skin: Warm
Neuro: AO x 3, No Motor Deficits and Nonfocal/Grossly Intact
Psych: Calm
--- NOTE | 2025-05-03 09:48 | W.PN.UPDATE ---
Update Note
Progress Note Update
Attempted to see pt. Off floor for procedure.
[2025-05-03 12:19] LABS: Glucose - Point of Care 194 mg/dl (70-99)
[2025-05-03] MEDS: NOVOLOG FLEXPEN-LOW RESISTANCE 1 UNITS SC ×2 (12:20→16:48)
--- NOTE | 2025-05-03 12:57 | CON.GS ---
Consultation
-
Date/Time Consultation Performed: 05/03/25
Requesting Provider: Chula Cornelius
Performing Provider: Vince
Reason for Consultation: Incidental gallbladder sludge
Medical History
-
Chief Complaint: Dry heaves
History of Present Illness:
69M on chemotherapy for stage IV RCC p/w 1 day of dry heaves and unable to take PO. He is having BMs. He reports he has been on and off chemo due to intolerance. At one point he reports he had pale stools and this led them to stop the chemotherapy.
His reports at that time he was jaundiced. After holding chemo medications his reports his stools and jaundice normalized. This was a few weeks ago. The jaundice and pale stools did not occur this episode. He last took his chemo Thursday. He
has been having diarrhea. He c/o chronic upper abd pain that is band like around his upper abdomen and wraps around his back. He has known mets to the right 11th rib with vinny destruction noted on imaging.
Past Medical History
Past Medical History: Other (Renal cell carcinoma of right kidney, mets to bone, hyperlipidemia, hypertension, obstructive sleep apnea on CPAP, diverticulosis, diverticulitis, GERD, lumbar herniated disc, allergic rhinitis, type 2 diabetes, lateral
pharyngeal reflux disease, ocular myasthenia gravis,)
Past Surgical History: Other (Lumbar laminectomy, wisdom teeth extraction, back surgery, right kidney removal, spine cancer removal, L3-L5 discectomy and fusion)
Social History
Tobacco: Non-Smoker
Alcohol: None
Drug: None
Personal:
Living: With Family
Family History
Family History: Reviewed & Noncontributory
Allergies / Home Medications
Allergy/AdvReac Type Severity Reaction Status Date / Time
aspirin Allergy Hives Verified 05/02/25 11:14
naproxen Allergy urinary Verified 05/02/25 11:14
burning
�Medication �Instructions �Recorded �Confirmed �Type
allopurinol 100 mg tablet 100 mg PO DAILY Gout ##0 09/13/19 05/02/25 History
cholecalciferol (vitamin D3) 25 25 mcg PO DAILY Supplement ##0 09/13/19 05/02/25 History
mcg (1,000 unit) tablet (Vitamin
D3)
melatonin 3 mg tablet 3 mg PO HSPRN PRN SLEEP ##0 09/13/19 05/02/25 History
amlodipine 5 mg tablet (Norvasc) 5 mg PO DAILY #14 tabs 05/15/24 05/02/25 Rx
carvedilol 25 mg tablet (Coreg) 25 mg PO BID Blood Pressure 10/30/24 05/02/25 History
escitalopram oxalate 10 mg tablet 10 mg PO DAILY Mental 10/30/24 05/02/25 History
(Lexapro) Health/Anxiety
losartan 100 mg tablet 100 mg PO DAILY Blood Pressure 10/30/24 05/02/25 History
metformin 850 mg tablet 850 mg PO BID Diabetes 10/30/24 05/02/25 History
pyridostigmine bromide 60 mg 30 mg PO TID Neurological Condition 10/30/24 05/02/25 History
tablet (Mestinon)
tamsulosin 0.4 mg capsule (Flomax) 0.4 mg PO DAILY Urinary Issue 10/30/24 05/02/25 History
prednisone 5 mg tablet 5 mg PO DAILY #30 tabs 11/04/24 05/02/25 Rx
atorvastatin 10 mg tablet (Lipitor) 10 mg PO QPM High Cholesterol 05/02/25 05/02/25 History
fentanyl 12 mcg/hr transdermal 1 patch transdermal Q72H Pain 05/02/25 05/02/25 History
patch
fentanyl 25 mcg/hr transdermal 1 patch transdermal Q72H WITH 05/02/25 05/02/25 History
patch 12MCG PATCH
oxycodone 10 mg tablet 10 mg PO Q4HPRN PRN SEREVE PAINS 05/02/25 05/02/25 History
sennosides 8.6 mg tablet (senna) 8.6 mg PO BIDPRN PRN CONSTIPATION 05/02/25 05/02/25 History
Review of Systems
-
A 10 point review of systems was completed, and was negative except as per HPI.
Physical Exam
Vital Signs
Temp Pulse Resp BP Pulse Ox
97.0 F 81 16 142/86 98
05/03/25 08:00 05/03/25 08:00 05/03/25 08:00 05/03/25 08:00 05/03/25 08:00
05/02/25 05/03/25 05/04/25
06:59 06:59 06:59
Actual Weight 85.729 kg
Body Mass Index (BMI) 28.7
Lab Results
05/03/25 05:59
05/03/25 05:59
WBC 8.9 10^3/uL (4.8-10.8) 05/03/25 05:59
Hgb 10.6 g/dL (13.0-18.0) L 05/03/25 05:59
Hct 33.0 % (39.0-52.0) L 05/03/25 05:59
Plt Count 199 10^3/uL (130-400) D 05/03/25 05:59
Abs Immat Gran (auto) 0.0 10^3/uL (0-0.05) 05/02/25 13:00
Neutrophils % 72.6 % (42.2-75.2) 05/02/25 13:00
Physical Exam
General: Well Developed, Well Nourished and No Apparent Distress
GI: Soft and Tender (mild ttp to epigastrium and RUQ; no ttp to LLQ)
Musculoskeletal: Other (mod-sev ttp to right back at rib 11)
Neuro: AO x 3
Psych: Calm
Data Reviewed
-
CT Scan: Image Personally Visualized and interpreted, Report Reviewed by me, Discussed with Nurse, Discussed with Patient and Discussed with Family
Labs: Labs Reviewed by me
Old Records: Reviewed
Assessment / Plan
-
69M with nausea and retching, imaging shows mild GBWT to 4mm and tumefactive sludge without PCF nor ductal dilation; per radiology also some concern for possible mild sigmoid diverticulitis
AFVSS, abd pain present, unchanged from pain he has been experiencing for months
Mildly ttp to RUQ with deep palp, less to epigastrium; most ttp at posterior rib 11; no ttp at LLQ
Hx of pale stools/jaundice noted, not POA
No leukocytosis, LFTs WNL
CT notable for distended gb, right pleural effusion abutting known site of rib metastasis, vinny changes appear to have progressed at this locus since last scan in October
Attempted thoracentesis unsuccessful today, suspect malignant effusion
We discussed the concerns about undergoing surgery while on chemotherapy, this would increase risks of wound complications and infection. The clinical picture is complicated by his right rib pain/tenderness and right pleural effusion, though his
(remote) hx of pale stools/jaundice and imaging with sludge and 4mm GBWT indicate he may have been passing stones (vs global liver dysfunction 2/2 chemo) and he may have some mild gallbladder inflammation at present. His US in October did not show
GBWT. On exam he is mildly tender att he RUQ and more tender at the posterior 11th rib, his LFTs are WNL. He has no leukocytosis though given recent chemo he may not mount a normal immune response. He remains nauseated today and has minimal
appetite, these issues have been ongoing with his chemotherapy. He is passing BMs (liquid). The gallbladder may be contributing to his current constellation of symptoms. I suspect he will improve with abx and holding chemo medications.
Plan:
Trial non-op management with IV abx
Hold chemo agents
DVT ppx
CLD
Serial abd exams
GS will follow
[2025-05-03 14:24] LABS: Glycohemoglobin (HgbA1c) 6.9 % (4.0-5.6)
--- NOTE | 2025-05-03 14:57 | CM ---
Initial assessment completed. Patient is a 69-year-old male with past medical history of myasthenia gravis, renal cancer with metastasis to the bone/ribs/7lumbar vertebrae presents to the ER for nausea.
Patient resides w/ spouse in 2 story split level home, 1 step to enter from the outside. 8 steps to the bedroom, additional 6 steps to patient's bedroom. Patient independent w/ ambulation w/ the use of a cane. Patient continues to use CPAP at night.
Denies SNF hx. Had [facility] services for PT in February. Patient is current w/ [facility] for pain management. Visits are every 6 weeks according to spouse.
Address, point of contact and insurance verified
PCP: Pavel Reaves
Pharmacy: [facility]
Spouse shared patient has been weak and wants to ensure physical therapy can see him. CM reassured spouse that PT has been ordered and pending at this time. Spouse requesting if GI can be consulted as patient has some GI issues that she wants
evaluated. TT PA regarding this.
Plan: CM will cont to follow for d/c planning
[2025-05-03 15:00] VITALS: BP 141/76
[2025-05-03 15:19] VITALS: BP 141/76; PULSE 63; O2SAT 97
--- NOTE | 2025-05-03 15:26 | PTOTSP ---
Pt is independent with bed mobility, transfers, and ambulation without need for any assistive devices. No acute PT needs were identified. PT will sign off.
[2025-05-03] MEDS: LIPITOR 10 MG PO (16:30)
[2025-05-03] MEDS: LOVENOX 40 MG SC (16:30)
[2025-05-03 16:48] LABS: Glucose - Point of Care 159 mg/dl (70-99)
[2025-05-03 19:53] VITALS: BP 133/82
[2025-05-03 21:13] LABS: Glucose - Point of Care 128 mg/dl (70-99)
[2025-05-03] MEDS: ROXICODONE 10 MG PO (22:02)
[2025-05-03 23:48] VITALS: BP 125/77
[2025-05-04] MEDS: NOVOLOG FLEXPEN-LOW RESISTANCE SC ×2 (00:42→07:04)
[2025-05-04] MEDS: MELATONIN 3 MG PO (02:14)
[2025-05-04] MEDS: ZOSYN 50 IV ×2 (04:31→10:00)
[2025-05-04 06:00] VITALS: BMI 28.5
[2025-05-04 06:35] LABS: Blood Urea Nitrogen 12 mg/dl (9-20); Calcium 8.5 mg/dl (8.4-10.2); Carbon Dioxide 28 mmol/L (22-30); Chloride 100 mmol/L (98-107); Estimated Creatinine Clearance 48 ml/min; Glucose 90 mg/dl (70-99); Potassium 3.3 mmol/L (3.5-5.1); Sodium 132 mmol/L (135-145); eGFR 54.07
[2025-05-04 06:50] LABS: Hematocrit 30.3 % (39.0-52.0); Hemoglobin 9.6 g/dL (13.0-18.0); Mean Corp Hgb Conc. 31.7 g/dL (33.0-37.0); Mean Corpuscular Volume 80.6 fL (80.0-94.0); Platelet Count 108 10^3/uL (130-400); Red Cell Dist. Width 18.4 % (11.5-14.5)
[2025-05-04 07:01] LABS: Glucose - Point of Care 113 mg/dl (70-99)
--- NOTE | 2025-05-04 07:19 | W.PN.HOSP.TC ---
Addendum entered and electronically signed by Alex Cornelius MD 05/04/25 12:27:
Diverticulitis of the sigmoid colon
Continue Zosyn with anaerobic coverage
IV fluid; clear liquid diet advance as tolerated
Biliary sludge
Surgery consulted no current intraoperative interventions planned
Right-sided pleural effusion small
IR was unable to complete thoracentesis
Open gravis
Continue pyridostigmine and prednisone will
Hypertension
Continue antihypertensives
Depression
Continue Lexapro
GILBERTO
Continue home CPAP
DC home with oral antibiotics
Read, reviewed, and agree. See same day progress note for additional details. Time spent reviewing records in EMR, med rec, consults, notes, d/w consultants, nursing, family, and CM
Original Note:
Today's Communication/Plan
-
Plan reviewed with attending
pending tolerating diet, discharge today on PO abx for diverticulitis
Assessment / Plan
Assessment / Plan
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
Pt had formed stool in the morning that later transformed to diarrhea by mid day. AFVSS. Communicating with oncologist team at [facility]. CT demonstrated sludge in GB with confirmation on US. Pt reports remote hx of light colored stool. ECG normal. Plan
was for thoracentesis of small R sided effusion, but fluid collection was too small to safely drain. Pt has chronic abdominal pain that was treated with a nerve ablation and controlled on fentanyl patch. Gen surg following, no current plans for
surgery.
Pt feels significantly better today with increased appetite and resolved nausea. Advance diet as tolerated. Possible discharge pending tolerating lunch.
C diff stool antigen negative. Diarrhea improving. No leukocytosis, stable Hg. AFVSS. Abdominal pain back to baseline.
#diverticulitis of sigmoid colon
#nausea, vomiting
- Continue abx
- IVF
- advance diet as tolerated.
#biliary sludge
- Gen surg following
- no current plans for surgery
#R sided pleural effusion
- Monitor. No thoracentesis today
#MG
- continue pyridostigmine, prednisone
#HTN
-continue home medications
#depression
-continue home lexapro
#chronic abdominal pain
- continue fentanyl patch
#GILBERTO
- continue home cpap
#rash
- seemingly related to chemotherapy, improving off chemo
#RCC
- Hold everlimus and linvema. Inc ontact with [facility] oncologist for further management
#hypokalemia
- replete as needed
#normocytic anemia
- stable
- Transfuse Hg<7
Anticipated Discharge: Today
Subjective/Interval History
-
Date of Service: May 04, 2025
Pt reports feeling significantly better. He complains of continued diarrhea, but it has improved from water diarrhea to more solid. He woke up feeling hungry which he reports is rare for him. He deneis emesis since admission with resolving nausea.
He is eager to eat solid food.
Objective Data
-
Labs:
Laboratory Results
05/04/25
06:03
WBC 5.8
Hgb 9.6 L
Hct 30.3 L
Plt Count 108 L D
Sodium 132 L
Potassium 3.3 L
Chloride 100
Carbon Dioxide 28
BUN 12
Creatinine 1.4 H
Glucose 90
Calcium 8.5
Vital Signs:
Vital Signs
Temp Pulse Resp BP Pulse Ox
98.7 F 65 14 125/77 95
05/03/25 23:48 05/03/25 23:48 05/03/25 23:48 05/03/25 23:48 05/03/25 23:48
I&O
05/03/25 05/04/25 05/05/25
06:59 06:59 06:59
Intake Total 120 / 120 2619
Balance 120 / 120 2619
Review of Systems
-
History Source: Patient
All other systems: Reviewed and negative
Physical Exam
-
General: Well Developed, Well Nourished, No Apparent Distress, Comfortable and Conversant
HEENT: Normocephalic, Atraumatic, Moist Mucous Membranes, Nose Appears Normal and Ears Appear Normal
Respiratory: Clear to Auscultation and Non Labored Respirations
Cardiac: Regular Rhythm and S1/S2
GI: Soft, Nontender (significantly improved, tender on R side pt states is constant since cx dx) and Nondistended
Musculoskeletal: No Edema
Skin: Warm and Dry
Neuro: AO x 3, No Motor Deficits and Nonfocal/Grossly Intact
Psych: Calm
[2025-05-04] MEDS: COZAAR 100 MG PO (07:27)
[2025-05-04] MEDS: FLOMAX 0.4 MG PO (07:27)
[2025-05-04] MEDS: KCL 40 MEQ PO (07:27)
[2025-05-04] MEDS: COREG 25 MG PO (07:28)
[2025-05-04] MEDS: MESTINON 30 MG PO (07:28)
[2025-05-04] MEDS: NORVASC 5 MG PO (07:28)
[2025-05-04] MEDS: DELTASONE 5 MG PO (07:29)
[2025-05-04] MEDS: LEXAPRO 10 MG PO (07:29)
[2025-05-04] MEDS: ZYLOPRIM 100 MG PO (07:29)
[2025-05-04] MEDS: DILAUDID 0.5 MG IV (07:38)
[2025-05-04 08:13] VITALS: BP 128/72
[2025-05-04] MEDS: KCL 20 MEQ PO (10:00)
[2025-05-04 11:52] LABS: Glucose - Point of Care 242 mg/dl (70-99)
[2025-05-04] MEDS: NOVOLOG FLEXPEN-LOW RESISTANCE 2 UNITS SC (11:57)
--- NOTE | 2025-05-04 12:07 | CM ---
MD entered order for discharge.
Spoke with patient he said he is ready for discharge.
His [facility] will drive him home.
IMM reviewed with patient . He agrees with dc.
Offered VN he declined need.
PLAN Home no needs
[2025-05-04 13:30] VITALS: BP 141/74
--- NOTE | 2025-05-04 16:23 | W.DCSUMMARY ---
Documented by User: Emmy Paez MD, Resident 05/05/25 07:02
Discharge Summary
Discharge Data
Date of Admission: 05/02/25
Date of Discharge: 05/04/25
-
Pending Results: No
Hospital Course
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
Pt had formed stool in the morning that later transformed to diarrhea by mid day. AFVSS. Communicating with oncologist team at [facility] regarding continuing to hold oral chemotherapy. CT demonstrated sludge in GB with confirmation on US. Small r sided
pleural effusion seen on CT, too small for thoracentesis. Pt reports remote hx of light colored stool but normal color currently. ECG normal. Pt has chronic abdominal pain that was treated with a nerve ablation and controlled on fentanyl patch that
is ongoing but worse at this current presentation. Gen surg following, no current plans for surgery. Kept pt on fluids and antibiotics.
Continued on zosyn. Pt began having watery diarrhea that self resolved, c diff antigen negative. By next day, pt had increased appetite and resolved nausea. Abdominal pain resolved back to baseline. Advance diet as tolerated.
During admission, continued home medications except held oral chemotherapy.
Discharge Plan
-
Patient Disposition: Home (Routine Discharge)
Discharge Diagnosis/Procedures: diverticulitis, biliary sludge without acute cholecystitis
Condition: Fair
Diet: As tolerated
Activity: As tolerated
Driving Restrictions: As prior to admission
Bathing Restrictions: None
Referrals:
Pavel Reaves MD [Family Provider, Internal Medicine]
Additional Discharge Medication Instructions: Take full course of 10 days of antibiotics for diverticulitis.
Hold oral chemotherapy until you follow up with oncologist.
Prescriptions:
New
amoxicillin-pot clavulanate [Augmentin] 500-125 mg tablet
1 tab PO BID Qty: 16 0RF
prochlorperazine maleate [Compazine] 5 mg tablet
5 mg PO BID PRN (Reason: if you still feel nauseas after taking zofran) Qty: 14 0RF
Continued
melatonin 3 mg Tablet
3 mg PO HSPRN PRN (Reason: SLEEP) Qty: 0
allopurinol 100 mg Tablet
100 mg PO DAILY Qty: 0
cholecalciferol (vitamin D3) [Vitamin D3] 25 mcg (1,000 unit) Tablet
25 mcg PO DAILY Qty: 0
amlodipine [Norvasc] 5 mg tablet
5 mg PO DAILY Qty: 14 0RF
carvedilol [Coreg] 25 mg Tablet
25 mg PO BID
metformin 850 mg Tablet
850 mg PO BID
tamsulosin [Flomax] 0.4 mg Capsule
0.4 mg PO DAILY
pyridostigmine bromide [Mestinon] 60 mg Tablet
30 mg PO TID
losartan 100 mg Tablet
100 mg PO DAILY
escitalopram oxalate [Lexapro] 10 mg Tablet
10 mg PO DAILY
prednisone 5 mg Tablet
5 mg PO DAILY Qty: 30 0RF
sennosides [senna] 8.6 mg Tablet
8.6 mg PO BIDPRN PRN (Reason: CONSTIPATION)
atorvastatin [Lipitor] 10 mg Tablet
10 mg PO QPM
fentanyl 25 mcg/hr Patch 72 Hour
1 patch TRANSDERMAL Q72H
fentanyl 12 mcg/hr Patch 72 Hour
1 patch TRANSDERMAL Q72H
oxycodone 10 mg Tablet
10 mg PO Q4HPRN PRN (Reason: SEREVE PAINS)
Discharge Orders:
Discharge Patient (As Directed); Ordered 05/04/25
Ordered By: Emmy Paez
Discharge Date and Time
Discharge Date/Time: 05/04/25 13:53
Print Language: MACEDONIAN

Documented by User: Alex Cornelius MD 05/05/25 17:11
Discharge Summary
Discharge Data
Date of Admission: 05/02/25
Date of Discharge: 05/05/25
Discharge Plan
-
Patient Disposition: Home (Routine Discharge)
Discharge Diagnosis/Procedures: diverticulitis, biliary sludge without acute cholecystitis
Condition: Fair
Diet: As tolerated
Activity: As tolerated
Driving Restrictions: As prior to admission
Bathing Restrictions: None
Referrals:
Pavel Reaves MD [Family Provider, Internal Medicine]
Additional Discharge Medication Instructions: Take full course of 10 days of antibiotics for diverticulitis.
Hold oral chemotherapy until you follow up with oncologist.
Prescriptions:
New
amoxicillin-pot clavulanate [Augmentin] 500-125 mg tablet
1 tab PO BID Qty: 16 0RF
prochlorperazine maleate [Compazine] 5 mg tablet
5 mg PO BID PRN (Reason: if you still feel nauseas after taking zofran) Qty: 14 0RF
Continued
melatonin 3 mg Tablet
3 mg PO HSPRN PRN (Reason: SLEEP) Qty: 0
allopurinol 100 mg Tablet
100 mg PO DAILY Qty: 0
cholecalciferol (vitamin D3) [Vitamin D3] 25 mcg (1,000 unit) Tablet
25 mcg PO DAILY Qty: 0
amlodipine [Norvasc] 5 mg tablet
5 mg PO DAILY Qty: 14 0RF
carvedilol [Coreg] 25 mg Tablet
25 mg PO BID
metformin 850 mg Tablet
850 mg PO BID
tamsulosin [Flomax] 0.4 mg Capsule
0.4 mg PO DAILY
pyridostigmine bromide [Mestinon] 60 mg Tablet
30 mg PO TID
losartan 100 mg Tablet
100 mg PO DAILY
escitalopram oxalate [Lexapro] 10 mg Tablet
10 mg PO DAILY
prednisone 5 mg Tablet
5 mg PO DAILY Qty: 30 0RF
sennosides [senna] 8.6 mg Tablet
8.6 mg PO BIDPRN PRN (Reason: CONSTIPATION)
atorvastatin [Lipitor] 10 mg Tablet
10 mg PO QPM
fentanyl 25 mcg/hr Patch 72 Hour
1 patch TRANSDERMAL Q72H
fentanyl 12 mcg/hr Patch 72 Hour
1 patch TRANSDERMAL Q72H
oxycodone 10 mg Tablet
10 mg PO Q4HPRN PRN (Reason: SEREVE PAINS)
Discharge Orders:
Discharge Patient (As Directed); Ordered 05/04/25
Ordered By: Emmy Paez
Discharge Date and Time
Discharge Date/Time: 05/04/25 13:53
Print Language: MACEDONIAN
== END 2025-05-04 13:53 | disposition home or self-care (01) | DRG 392 ==
LOC: 4 WEST ACU 16:36
PROVIDERS: Nurse Practitioner; Registered Nurse; ADMITTING PHYSICIAN Hospitalist; ATTENDING PHYSICIAN Hospitalist; EMERGENCY PHYSICIAN Student in an Organized Health Care Education/Training Program; FAMILY PHYSICIAN Internal Medicine; OTHER PHYSICIAN Surgery
DX: K57.32 Diverticulitis of large intestine without perforation or abscess without bleeding (principal); J90 Pleural effusion, not elsewhere classified; E87.1 Hypo-osmolality and hyponatremia; C64.1 Malignant neoplasm of right kidney, except renal pelvis; C79.51 Secondary malignant neoplasm of bone; J98.11 Atelectasis; I10 Essential (primary) hypertension; G47.33 Obstructive sleep apnea (adult) (pediatric); E11.9 Type 2 diabetes mellitus without complications; E87.6 Hypokalemia; D63.8 Anemia in other chronic diseases classified elsewhere; E78.00 Pure hypercholesterolemia, unspecified; F41.9 Anxiety disorder, unspecified; G47.00 Insomnia, unspecified; G70.00 Myasthenia gravis without (acute) exacerbation; G89.29 Other chronic pain; K21.9 Gastro-esophageal reflux disease without esophagitis; K82.8 Other specified diseases of gallbladder; N40.0 Benign prostatic hyperplasia without lower urinary tract symptoms; Z79.84 Long term (current) use of oral hypoglycemic drugs; Z79.899 Other long term (current) drug therapy; Z80.0 Family history of malignant neoplasm of digestive organs; Z80.42 Family history of malignant neoplasm of prostate; Z88.6 Allergy status to analgesic agent; Z90.5 Acquired absence of kidney
CPT/HCPCS: 71275; 74177; 76604; 76700; 80048; 80053; 81003; 82962; 83036; 83615; 83690; 85025; 85027; 87324; 87449; 93005; 96361; 96374; 96375; 97162; 99285; Q9967

== ENCOUNTER → 2025-06-08 11:55 | Outpatient (REF) | payer MEDICARE, OTHER, SELFPAY ==
[2025-06-08 12:48] LABS: Hematocrit 33.5 % (39.0-52.0); Hemoglobin 9.9 g/dL (13.0-18.0); Mean Corp Hgb Conc. 29.6 g/dL (33.0-37.0); Mean Corpuscular Volume 85.7 fL (80.0-94.0); Nucleated Red Blood Cells % 0 % (-); Platelet Count 260 10^3/uL (130-400); Red Cell Dist. Width 17.1 % (11.5-14.5)
[2025-06-08 13:33] LABS: ALT (SGPT) 18 U/L (0-50); AST (SGOT) 16 U/L (17-59); Albumin 4.2 g/dl (3.5-5.0); Alkaline Phosphatase 80 U/L (38-126); Blood Urea Nitrogen 17 mg/dl (9-20); Calcium 9.8 mg/dl (8.4-10.2); Carbon Dioxide 31 mmol/L (22-30); Chloride 96 mmol/L (98-107); Glucose 147 mg/dl (70-99); Potassium 4.5 mmol/L (3.5-5.1); Sodium 133 mmol/L (135-145); Total Protein 6.9 g/dl (6.3-8.2); eGFR > 60.00
== END ==
LOC: REG 11:55
PROVIDERS: ATTENDING PHYSICIAN Internal Medicine Hematology & Oncology; FAMILY PHYSICIAN Internal Medicine; REFERRING PHYSICIAN Nurse Practitioner Gerontology
DX: C64.1 Malignant neoplasm of right kidney, except renal pelvis (principal)
CPT/HCPCS: 36415; 80053; 85025

== ENCOUNTER → 2025-07-25 13:35 | Outpatient (REF) | payer MEDICARE, OTHER, SELFPAY ==
[2025-07-25 14:37] LABS: Hematocrit 33.0 % (39.0-52.0); Hemoglobin 10.1 g/dL (13.0-18.0); Mean Corp Hgb Conc. 30.6 g/dL (33.0-37.0); Mean Corpuscular Volume 78.9 fL (80.0-94.0); Nucleated Red Blood Cells % 0 % (-); Platelet Count 231 10^3/uL (130-400); Red Cell Dist. Width 16.1 % (11.5-14.5)
[2025-07-25 15:02] LABS: ALT (SGPT) 17 U/L (0-50); AST (SGOT) 20 U/L (17-59); Albumin 4.0 g/dl (3.5-5.0); Alkaline Phosphatase 81 U/L (38-126); Blood Urea Nitrogen 15 mg/dl (9-20); Calcium 9.6 mg/dl (8.4-10.2); Carbon Dioxide 26 mmol/L (22-30); Chloride 96 mmol/L (98-107); Glucose 157 mg/dl (70-99); Potassium 4.7 mmol/L (3.5-5.1); Sodium 131 mmol/L (135-145); Total Protein 6.9 g/dl (6.3-8.2); eGFR > 60.00
== END ==
LOC: REG 13:35
PROVIDERS: ATTENDING PHYSICIAN Internal Medicine Hematology & Oncology; FAMILY PHYSICIAN Hospitalist
DX: C64.1 Malignant neoplasm of right kidney, except renal pelvis (principal); I10 Essential (primary) hypertension
CPT/HCPCS: 36415; 80053; 84443; 85025